=== PATIENT | female | born 1990 | race Caucasian/White ===

== ENCOUNTER → 2018-01-18 12:12 | Outpatient (CLI) | payer OTHER, SELFPAY ==
[2018-01-20 07:51] LABS: Thyroglobulin Antibody < 1.0 IU/mL (0.0-0.9)
== END ==
PROVIDERS: Referring Provider Family Medicine; Visit Provider Family Medicine
DX: E01.0 Iodine-deficiency related diffuse (endemic) goiter (principal); R10.9 Unspecified abdominal pain; E28.2 Polycystic ovarian syndrome
CPT/HCPCS: 86800

== ENCOUNTER → 2018-02-02 14:34 | Outpatient (CLI) | payer OTHER, SELFPAY ==
--- NOTE | 2018-02-02 14:37 | US_ITS ---
STUDY: THYROID ULTRASOUND REASON FOR EXAM: Female, 27 years old. Thyromegaly. TECHNIQUE: Ultrasound evaluation of the thyroid was performed with real-time and static stewart-scale imaging. COMPARISON: None. FINDINGS: RIGHT LOBE: The right lobe of the thyroid gland measures 5.4 x 2.2 x 1.4 cm. There is a homogeneous echotexture. There is a well-circumscribed hypoechoic 3.8 x 1.9 x 3.0 mm nodule within the right lobe of the gland. LEFT LOBE: The left lobe of the thyroid gland measures 5.3 x 2.0 x 1.4 cm. There is a homogeneous echotexture. There is a solid 26 x 16 x 9.0 mm hypervascular nodule within the left lobe. ISTHMUS: The isthmus measures 3 mm. The regional lymph nodes are normal. US/Thyroid IMPRESSION: Enlarged thyroid gland. Bilateral thyroid nodules, the largest measuring up to 26 x 16 x 9.0 mm within the left lobe of the gland. Electronically Signed: Alethea Green MD at 16:47 EDT Tel , Service support ,
== END ==
PROVIDERS: Family Provider Family Medicine; PCP Family Medicine; Referring Provider Family Medicine; Visit Provider Family Medicine
DX: E01.0 Iodine-deficiency related diffuse (endemic) goiter (principal)
CPT/HCPCS: 76536

== ENCOUNTER → 2018-03-05 13:10 | Outpatient (CLI) | payer OTHER, SELFPAY ==
--- NOTE | 2018-03-05 13:10 | ASPS_PTH ---
PATIENT: BINTA MCCRARY LOC: [facility] U#:[id number] AGE/SX: 34/F ROOM: RE03/05/[address]: Dr. Brian Ramirez MD : 1990 BED: DIS: SPEC #: [id number] RECD: 03/06/18 07:12 STATUS: VIKKI CAROL #: [id number] NELLA: 03/05/18 13:[address]: Brian Ramirez DEPT: CYTOLOGY RECD BY: Rohan Ghotra ENTERED: 03/07/18 07:53 SP TYPE: ASPIRATION OTHR DR: Dr. Kenneth Escalona MD Tissues: Thyroid gland, NOS Procedures: Pap Stain (control) Special Stain Group II Cytology Other HEADER OPERATION: Left thyroid, FNA PRE-OP DIAGNOSIS: Left thyroid nodule TISSUE SUBMITTED: Left thyroid, slides DIAGNOSIS CYTOLOGY Left thyroid nodule, FNA (smear): Consistent with benign follicular nodule. Adequate for evaluation. SJ:sp 03/07/18 COMMENT Immediate cytologic evaluation to determine adequacy is not applicable. Correlation with clinical, radiologic findings and appropriate follow up are necessary. CYTOLOGY STUDY Slides are reviewed. CYTOLOGY GROSS Received are 6 smears labeled with the patient's name and designated per the requisition as left thyroid. Submitted for staining. /Wendy 03/06/18 TC: 5 [facility]: [id number]
== END ==
PROVIDERS: Family Provider Family Medicine; PCP Family Medicine; Referring Provider Surgery; Visit Provider Surgery
DX: E04.1 Nontoxic single thyroid nodule (principal)
CPT/HCPCS: 88161; 88313

== ENCOUNTER → 2019-05-23 14:37 | Outpatient (CLI) | payer OTHER, SELFPAY ==
[2019-05-16 09:20] VITALS: BMI 46.7
--- NOTE | 2019-05-23 14:38 | CT_ITS ---
STUDY: CT ABDOMEN AND PELVIS WITHOUT CONTRAST REASON FOR EXAM: Female, 28 years old. RT SIDED PAIN X 2 YRS, N/V/D, SX WORSENING, PREV BERENICE RADIATION DOSAGE (If Supplied By Facility): CTDIvol = ( 24.18 ) mGy, DLP = ( 1292.7 ) mGycm TECHNIQUE: Transaxial images were obtained from the dome of the diaphragm to the symphysis pubis without oral contrast, and without intravenous contrast. Sagittal and coronal images were reconstructed. Individualized dose optimization techniques were used for this CT. COMPARISON: None. FINDINGS: The visualized lung bases are unremarkable. The visualized portions of the heart are within normal limits. There is decreased attenuation of the liver consistent with steatosis. There are surgical clips in the gallbladder fossa consistent with a prior cholecystectomy. Normal spleen. Normal pancreas. Normal bilateral adrenal glands. Normal right kidney. Normal left kidney. Normal visualized stomach. Normal small intestine. Intimal stranding around the cecum with several prominent lymph nodes. There is non-visualization of the appendix. Normal abdominal aorta. Normal inferior vena cava. Normal retroperitoneum. Normal urinary bladder. Normal visualized uterus. Normal abdominal wall. Normal osseous structures. CT/Abdomen/Pelvis without Cont IMPRESSION: Mild stranding around the cecum may represent an acute infectious or inflammatory process as clinically indicated. Appendix not visualized. Cholecystectomy. Diffuse hepatic steatosis. Electronically Signed: Seun Parra, at 15:38 EST Tel , Service support ,
== END ==
PROVIDERS: PCP Internal Medicine; Referring Provider Internal Medicine; Visit Provider Internal Medicine
DX: R10.9 Unspecified abdominal pain (principal); G89.29 Other chronic pain
CPT/HCPCS: 74176

== ENCOUNTER 2019-07-01 07:34 | Day surgery (SDC) | payer OTHER, SELFPAY ==
--- NOTE | 2019-06-06 03:01 | HP_ITS ---
Intake Vital Signs 06/06/19 BMI 46.7 06/06/19 Height 5 ft 4 in 06/06/19 Weight: 289 lb 06/06/19 BMI 49.6 06/06/19 BP 114/61 06/06/19 Blood Pressure Location Rt brachial 06/06/19 Position Sitting 06/06/19 Respiration 18 06/06/19 Pulse 66 06/06/19 Pulse Source Monitor 06/06/19 Temp 98.1 F 06/06/19 Temp Source Oral 06/06/19 Pulse Oximetry (%) 97 06/06/19 Oxygen Delivery Method room air Intake Visit Reasons: ABDOMINAL PAIN/CHOLECYSTECTOMY Chief Complaint: abdominal pain [employer] Required: No Is patient in pain?: No Allergies No Known Allergies Allergy (Verified 06/06/19 14:42) Medications multivitamin,jj-[id number] 1 tab PO DAILY 04/11/18 [History Confirmed 06/06/19] omeprazole 20 mg capsule,delayed release 20 mg PO DAILY 04/11/18 [History Confirmed 06/06/19] escitalopram oxalate 5 mg tablet 5 mg PO DAILY #60 tab 05/15/19 [Rx Confirmed 06/06/19] norethindrone (contraceptive) 0.35 mg tablet 0.35 mg PO QDAY #84 tab 05/16/19 [Rx Confirmed 06/06/19] lactobacillus combination no.8 3 billion cell capsule 3,000 mmu cells PO DAILY 06/06/19 [History Confirmed 06/06/19] [facility] Medical History Acid reflux (Chronic) PCOS (polycystic ovarian syndrome) (Chronic) Multiple thyroid nodules (Acute) Anxiety (Chronic) Diarrhea (Acute) Nausea (Acute) Abdominal pain (Acute) High triglycerides (Acute) Chronic headaches (Chronic) Surgical History History of laparoscopic cholecystectomy (Resolved) History of thyroid surgery (Resolved) history wisdom teeth removed (Resolved) Family History Grandmother Arthritis Breast cancer Skin cancer Diabetes Thyroid disorder High cholesterol Hypertension Grandfather Skin cancer Hypertension High cholesterol Mother Depression High cholesterol Thyroid disorder Father High cholesterol Severe allergy Social History (Updated 06/06/19 @ 15:02 by Addi Wagner MD) Smoking Status: Never smoker alcohol intake: current alcohol intake frequency: a few times a month substance use type: does not use caffeine: Yes what type of physical activity do you participate in: walking frequency: 3-4 times per week seatbelt use: always do you feel safe at home: Yes additional social history: Single-Works at [employer] HPI HPI HPI: BINTA LUEVANO, is a 28 F who presents to the office today for HPI HPI Surgical H&P: Yes HPI: BINTA LUEVANO, is a 28 F who presents to the office today for Evaluation for abdominal pain. Patient states that she has had right sided abdominal pain over the last several years. Originally back in 2017 she presented with symptoms similar to this gallbladder ultrasound was obtained that showed cholelithiasis and she subsequently underwent a laparoscopic cholecystectomy and [facility] Since that time she has noticed an increase in her diarrhea which she is always had but worse when she is having thick syrupy or spicy meals. In addition her GERD has gotten significantly worse. She complains of reflux going up into her esophagus. A CAT scan of her abdomen and pelvis was obtained which showed intimal stranding around the cecum with several prominent lymph nodes. There was nonvisualization of her appendix. There were also surgical clips in the gallbladder fossa consistent with a prior cholecystectomy. ROS General General: No weight change, appetite, fatigue, colon cancer, breast cancer or weakness HEENT HEENT: No difficulty swallowing, eye injury, eye surgery, swollen glands or hoarseness Endo Endocrine: No thyroid disease, diabetes mellitus, thyroid cancer, Hair loss, heat intolerance or cold intolerance Skin Skin: No rash or changing moles Breast Breast: No left breast lump, right breast lump, nipple discharge, breast pain, abnormal mammogram, abnormal US or breast enlargement Musc Musculoskeletal: No back problems, arthritis, rheumatoid arthritis, gout or joint pain Cardio Cardiovascular: No murmur, pacemaker, heart disease, atrial fibrillation, high blood pressure, heart attack, heart stent, palpitations, shortness of breat with exertion or chest pain Psych Psychiatric: Yes anxiety; no depression or hearing voices Resp Respiratory: No shortness of breath, No sleep apnea, No cough, No COPD, No asthma, No emphysema, No wheezing Gastro Gastrointestinal: Yes abdominal pain, Yes nausea or vomiting, Yes diarrhea, No constipation, No blood in stool, Yes acid reflux, No hemorrhoids, No ulcers, Yes gallbladder problem, No black,tarry stools Edgardo Hematologic: No blood thinners, No blood disorders, No bleeding, No anemia, No blood clots Neuro Neurologic: No system reviewed and no additional complaints, except as docu, No as per HPI, No abnormal walking, No abnormal hearing, No abnormal movements, No abnormal speech, No behavioral changes, No burning sensations, No confusion, No seizure-like activity, No unsteadiness, No dizziness, No localized weakness, No frequent falls, No headache(s), No lack of coordination, No loss of vision, No memory loss, No numbness, No other visual disturbances, No radiating pain, No restless legs, No sensory deficit, No fainting, No tingling, No tremor(s), No weakness, No other Exam Const General: no acute distress, well developed, well hydrated Orientation: oriented to person, oriented to place, oriented to time [facility] Head: normocephalic, atraumatic Ears: external ears normal Mouth: moist mucous membranes Eyes Sclera: sclerae normal Pupils: normal by confrontation Neck Neck: no lymphadenopathy noted Neck mass: No Thyroid: thyroid normal, symmetrical Chest Chest palpation & inspection: normal inspection of the chest Breast Palpation: No nipple discharge Resp Effort & Inspection: normal respiratory effort Auscultation: clear to auscultation bilaterally Percussion: percussion normal Cardio Rate: regular rate Rhythm: regular rhythm Heart Sounds: no murmurs GI Inspection: obesity Palpation: soft, no hepatosplenomegaly, no masses, nontender Rectal Exam: other Other: Rectal exam deferred. I spent a lot of time palpating around her previous cholecystectomy scars as well as a subcutaneous tissue. She has no signs of any hernias she has no signs of any subcutaneous lesions which could be causing this discomfort. Extrem General: normal to inspection, no clubbing, cyanosis or edema Assessment & Plan Problems 1. Gastroesophageal reflux disease, esophagitis presence not specified K21.9 2. Right sided abdominal pain R10.[address] scan R93.5 4. Diarrhea, unspecified type R19.7 Plan I have discussed the above with the patient. I have offered the patient colonoscopy As well as an EGD for evaluation. I have explained the risks/benefits of the procedure and described the procedure. I have discussed the risks with the patient, including but not limited to: infection, bleeding, perforation of the GI tract requiring emergency surgery, inability to complete the procedure, injury to any internal organs, complications of anesthesia, etc. - the patient understands and agrees to proceed. I have answered all the patient's questions to the patient's satisfaction and the patient has no further questions. The patient has been given instructions for the colon cleansing preparation. We will be doing random colon biopsies. Coding Level of Care Code Off vis,new,level 3 Diagnoses Gastroesophageal reflux disease, esophagitis presence not specified K21.9 ??Esophagitis presence: esophagitis presence not specified Right sided abdominal pain R10.[address] scan R93.5 Diarrhea, unspecified type R19.7 ??Diarrhea type: unspecified type 06/06/19 1502 <Electronically signed by Addi yusuf MD> Date _ Addi Wagner MD I have re-examined the patient. There are no clinical changes since date of exam.
[2019-06-06 14:43] VITALS: BMI 46.7
[2019-06-14 11:14] VITALS: BMI 46.7
[2019-07-01 08:01] VITALS: BP 152/96; PULSE 93; RESP 18; TEMP 37.1; O2SAT 95; BMI 49.6
[2019-07-01 08:12] LABS: Internal QC Validated? YES +Cl - CLEAR BKGD; Pregnancy, Urine Negative Negative
[2019-07-01] MEDS: Lactated Ringers 1,000 ML 100 ML IV (08:13)
--- NOTE | 2019-07-01 08:30 | COLBX_PTH ---
PATIENT: BINTA MCCRARY LOC: EN U#:[id number] AGE/SX: 28/F ROOM: RE07/01/[address]: Dr. Addi Wagner MD : 1990 BED: DIS: 07/01/2019 SPEC #: [id number] RECD: 07/01/19 11:57 STATUS: VIKKI ACROL #: [id number] NELLA: 07/01/19 08:[address]: Addi Wagner DEPT: SURGICAL PATHOLOGY RECD BY: Chandu Velasco ENTERED: 07/01/19 13:57 SP TYPE: COLON BX OTHR DR: Dr. Ivania Gray MD Tissues: A - COLON BIOPSY B - Gastric mucous membrane C - Ileum, NOS D - COLON BIOPSY Procedures: Surgery Specimen Level IV HEADER OPERATION: Colonoscopy, EGD ([facility] PRE-OP DIAGNOSIS: Abdominal pain, diarrhea TISSUE SUBMITTED: A - Small bowel biopsy, B - Antral biopsy for H. pylori and pathology, C - Terminal ileum biopsy, D - Random colon biopsies MICROSCOPIC DIAGNOSIS A. Small bowel, biopsy: No pathologic change. B. Gastric antrum, biopsy: Mild chronic gastritis. See comment. C. Terminal ileum, biopsy: Minimal nonspecific chronic inflammation. D. Colon, random biopsy: No pathologic change. AM:angelica 07/02/19 COMMENT B. The results of immunohistochemistry for Helicobacter pylori will be reported separately ([id number]). MICROSCOPIC DESCRIPTION Slides are reviewed. GROSS DESCRIPTION A - Received in fixative is one container labeled with the patient's name and designated small bowel biopsy. The specimen consists of two irregular fragments of light garcia soft tissue that in aggregate measure 0.6 x 0.3 x 0.1 cm. The specimen is totally submitted in one cassette. B - Received in fixative is one container labeled with the patient's name and designated antral biopsy. The specimen consists of one irregular fragment of light garcia soft tissue that measures 0.7 x 0.2 x 0.1 cm. The specimen is totally submitted in one cassette. C - Received in fixative is one container labeled with the patient's name and designated terminal ileum. The specimen consists of one irregular fragment of light garcia soft tissue that measures 0.8 x 0.2 x 0.1 cm. The specimen is totally submitted in one cassette. D - Received in fixative is one container labeled with the patient's name and designated random colon biopsy. The specimen consists of multiple irregular fragments of light garcia soft tissue that in aggregate measure 2 x 1 x 0.1 cm. The specimen is totally submitted in one cassette. / AM:angelica 07/01/19 TC:3 CPT: 43455 x4
--- NOTE | 2019-07-01 08:30 | IMM_PTH ---
PATIENT: BINTA MCCRARY LOC: EN U#:[id number] AGE/SX: 28/F ROOM: RE07/01/[address]: Dr. Addi Wagner MD : 1990 BED: DIS: 07/01/2019 SPEC #: [id number] RECD: 07/01/19 15:06 STATUS: VIKKI REDwain #: [id number] NELLA: 07/01/19 08:[address]: Addi Wagner DEPT: IMMUNOHISTOCHEMISTRY RECD BY: Yazmin Jeong ENTERED: 07/01/19 15:06 SP TYPE: IMMUNO OTHR DR: Dr. Ivania Gray MD Tissues: B - Stomach, NOS Procedures: H Pylori (initial) PHYSICIAN & INSTITUTION [place] [id number] SPECIMEN INFORMATION: Tissue Source: B - Antral biopsy Clinical Info: Abdominal pain, diarrhea Specimen Number: [id number] CPT code: 76313 METHODOLOGY: Deparaffinized sections of prefer/formalin-fixed tissue or PAP/DQ stained slides are incubated with monoclonal/polyclonal antibodies/oligonucleotide probes. Localization is made via biotin free immunoperoxidase method. Appropriate controls are performed and reacted as expected. Results on target cell population are indicated in the following table: RESULTS: ANTIBODY / CLONE RESULT Block B H Pylori (polyclonal) negative These tests were developed and their performance characteristics determined by [facility]. They may not have been cleared or approved by the U.S. Food and Drug Administration. The FDA has determined that such clearance or approval is not necessary. The above immunohistochemical/dualISH markers are ordered and reviewed by the Pathologist. INTERPRETATION: B. Antral biopsy: Negative for Helicobacter pylori organisms. AM:angelica 07/02/19
[2019-07-01 09:00] VITALS: BP 124/66; BP 152/96; PULSE 80; RESP 18; TEMP 36.3; O2SAT 94
--- NOTE | 2019-07-01 09:01 | OP.CCLET_ITS ---
07/01/2019 Ivania Gray MD [address] [place] [address] [place] [address] Re : Upper GI endoscopy procedure for Lori Hammer Dear Dr. Gray This procedure was performed on Monday, July 01, 2019. My impressions and recommendations are as follows: Impressions : - Normal esophagus. - Erythematous mucosa in the antrum. Biopsied. - Normal examined duodenum. Biopsied. Recommendations : - Await pathology results. - Repeat upper endoscopy (date not yet determined) for surveillance. - Return to my office in 1 week. - Continue present medications. My findings are described in the full procedure note, which is enclosed. If I can be of further assistance, please feel free to contact me at Doctor phone number(s): , Fax: [phone], Work: . Sincerely, MD Addi Keane MD 07/01/2019 9:00:47 AM This report has been signed electronically.
--- NOTE | 2019-07-01 09:01 | OP.EGD_ITS ---
Patient Name: Lori Hammer Procedure Date: 07/01/2019 8:34 AM Date of : 1990 Age: 28 Procedure: Upper GI endoscopy Indications: Abdominal pain in the right upper quadrant, Gastro-esophageal reflux disease, Diarrhea Providers: Addi Wagner MD Referring MD: Ivania Gray MD Medicines: See the Anesthesia note for documentation of the administered medications Patient Profile: This is a 28 year old female. Refer to note in patient chart for documentation of history and physical. Complications: No immediate complications. Procedure: Pre-Anesthesia Assessment: - Prior to the procedure, a History and Physical was performed, and patient medications and allergies were reviewed. The patient's tolerance of previous anesthesia was also reviewed. The risks and benefits of the procedure and the sedation options and risks were discussed with the patient. All questions were answered, and informed consent was obtained. Prior Anticoagulants: The patient has taken no previous anticoagulant or antiplatelet agents. ASA Grade Assessment: III - A patient with severe systemic disease. After reviewing the risks and benefits, the patient was deemed in satisfactory condition to undergo the procedure. After obtaining informed consent, the endoscope was passed under direct vision. Throughout the procedure, the patient's blood pressure, pulse, and oxygen saturations were monitored continuously. The gastroscope was introduced through the mouth, and advanced to the third part of duodenum. The upper GI endoscopy was accomplished without difficulty. The patient tolerated the procedure well. Scope In: 8:40:40 AM Scope Out: 8:43:44 AM Total Procedure Duration Time 0 hours 3 minutes 4 seconds Findings: The examined esophagus was normal. Localized mildly erythematous mucosa without bleeding was found in the gastric antrum. Biopsies were taken with a cold forceps for Helicobacter pylori testing. The examined duodenum was normal. Biopsies for histology were taken with a cold forceps for evaluation of celiac disease. Impression: - Normal esophagus. - Erythematous mucosa in the antrum. Biopsied. - Normal examined duodenum. Biopsied. Recommendation: - Await pathology results. - Repeat upper endoscopy (date not yet determined) for surveillance. - Return to my office in 1 week. - Continue present medications. Procedure Code(s): --- Professional --- 64845, Esophagogastroduodenoscopy, flexible, transoral; with biopsy, single or multiple Diagnosis Code(s): --- Professional --- K31.89, Other diseases of stomach and duodenum R10.11, Right upper quadrant pain K21.9, Gastro-esophageal reflux disease without esophagitis R19.7, Diarrhea, unspecified CPT copyright 2017 [employer]. All rights reserved. The codes documented in this report are preliminary and upon admissions evaluator review may be revised to meet current compliance requirements. MD Addi Kaene MD 07/01/2019 9:00:47 AM This report has been signed electronically. Number of Addenda: 0 Note Initiated On: 07/01/2019 8:34 AM
--- NOTE | 2019-07-01 09:04 | OP.COLON_ITS ---
Patient Name: Lori Hammer Procedure Date: 07/01/2019 8:44 AM Date of : 1990 Age: 28 Procedure: Colonoscopy Indications: Abdominal pain in the right upper quadrant, Clinically significant diarrhea of unexplained origin, Abnormal CT of the GI tract Providers: Addi Wagner MD Referring MD: Ivania Gray MD Medicines: See the Anesthesia note for documentation of the administered medications Patient Profile: This is a 28 year old female. Refer to note in patient chart for documentation of history and physical. Last Colonoscopy: none. The patient's first colonoscopy is today. Complications: No immediate complications. Procedure: Pre-Anesthesia Assessment: - Prior to the procedure, a History and Physical was performed, and patient medications and allergies were reviewed. The patient's tolerance of previous anesthesia was also reviewed. The risks and benefits of the procedure and the sedation options and risks were discussed with the patient. All questions were answered, and informed consent was obtained. Prior Anticoagulants: The patient has taken no previous anticoagulant or antiplatelet agents. ASA Grade Assessment: III - A patient with severe systemic disease. After reviewing the risks and benefits, the patient was deemed in satisfactory condition to undergo the procedure. - Prior to the procedure, a History and Physical was performed, and patient medications and allergies were reviewed. The patient's tolerance of previous anesthesia was also reviewed. The risks and benefits of the procedure and the sedation options and risks were discussed with the patient. All questions were answered, and informed consent was obtained. Prior Anticoagulants: The patient has taken no previous anticoagulant or antiplatelet agents. ASA Grade Assessment: III - A patient with severe systemic disease. After reviewing the risks and benefits, the patient was deemed in satisfactory condition to undergo the procedure. After I obtained informed consent, the scope was passed under direct vision. Throughout the procedure, the patient's blood pressure, pulse, and oxygen saturations were monitored continuously. The Colonoscope was introduced through the anus and advanced to 5 cm into the ileum. The colonoscopy was performed without difficulty. The patient tolerated the procedure well. The quality of the bowel preparation was good. Scope In: 8:45:49 AM Scope Withdrawal Time 0 hours 7 minutes 32 seconds Scope Out: 8:57:10 AM Total Procedure Duration Time 0 hours 11 minutes 21 seconds Findings: The terminal ileum appeared normal. Biopsies for histology were taken with a cold forceps from the terminal ileum for evaluation of microscopic colitis. The colon (entire examined portion) appeared normal. Biopsies for histology were taken with a cold forceps from the entire colon for evaluation of microscopic colitis. Non-bleeding internal hemorrhoids were found during retroflexion. The hemorrhoids were mild and small. The exam was otherwise without abnormality. Impression: - The examined portion of the ileum was normal. Biopsied. - The entire examined colon is normal. Biopsied. - Non-bleeding internal hemorrhoids. - The examination was otherwise normal. Recommendation: - Discharge patient to home. - Resume previous diet. - Continue present medications. - Await pathology results. - Repeat colonoscopy (date not yet determined) for surveillance. - Return to my office in 1 week. Procedure Code(s): --- Professional --- 16133, Colonoscopy, flexible; with biopsy, single or multiple Diagnosis Code(s): --- Professional --- K64.8, Other hemorrhoids R10.11, Right upper quadrant pain R19.7, Diarrhea, unspecified R93.3, Abnormal findings on diagnostic imaging of other parts of digestive tract CPT copyright 2017 [employer]. All rights reserved. The codes documented in this report are preliminary and upon manager credit collections review may be revised to meet current compliance requirements. MD Addi Keane MD 07/01/2019 9:03:45 AM This report has been signed electronically. Number of Addenda: 0 Note Initiated On: 07/01/2019 8:44 AM
--- NOTE | 2019-07-01 09:04 | OP.CCLET_ITS ---
07/01/2019 Ivania Gray MD [address] [place] [address] [place] [address] Re : Colonoscopy procedure for Lori Hammer Dear Dr. Gray This procedure was performed on Monday, July 01, 2019. My impressions and recommendations are as follows: Impressions : - The examined portion of the ileum was normal. Biopsied. - The entire examined colon is normal. Biopsied. - Non-bleeding internal hemorrhoids. - The examination was otherwise normal. Recommendations : - Discharge patient to home. - Resume previous diet. - Continue present medications. - Await pathology results. - Repeat colonoscopy (date not yet determined) for surveillance. - Return to my office in 1 week. My findings are described in the full procedure note, which is enclosed. If I can be of further assistance, please feel free to contact me at Doctor phone number(s): , Fax: [phone], Work: . Sincerely, MD Addi Keane MD 07/01/2019 9:03:45 AM This report has been signed electronically.
[2019-07-01 09:05] VITALS: BP 134/72; BP 152/96; PULSE 68; RESP 16; O2SAT 95
[2019-07-01 09:10] VITALS: BP 132/73; BP 152/96; PULSE 71; RESP 16; O2SAT 94
[2019-07-01 09:15] VITALS: BP 135/78; BP 152/96; PULSE 79; RESP 16; TEMP 36.3; O2SAT 95
[2019-07-01 09:33] VITALS: BP 152/96
== END 2019-07-01 10:08 | disposition home or self-care (01) ==
LOC: EN 07:35 → AC 07:35
PROVIDERS: Anesthesiology; PCP Internal Medicine; Referring Provider Internal Medicine; Visit Provider Surgery
PROC: 0DJD8ZZ Inspection of Lower Intestinal Tract, Via Natural or Artificial Opening Endoscopic (ICD-10-PCS; CPT 45378; principal; 2019-07-01 08:25)
DX: R10.11 Right upper quadrant pain (principal); R19.7 Diarrhea, unspecified; K21.9 Gastro-esophageal reflux disease without esophagitis; R93.5 Abnormal findings on diagnostic imaging of other abdominal regions, including retroperitoneum; Z79.899 Other long term (current) drug therapy; K64.8 Other hemorrhoids; K29.50 Unspecified chronic gastritis without bleeding
CPT/HCPCS: 43239; 45380; 81025; 88305; 88342; J7120; J1610; J2405

== ENCOUNTER → 2019-09-20 14:58 | Outpatient (CLI) | payer OTHER, SELFPAY ==
[2019-09-20 13:16] VITALS: BMI 49.6
[2019-09-20 17:11] LABS: Chlamydia Trachomatis by PCR Negative (Negative); Neisserai gonorrhoeae by PCR Negative (Negative); Probe Check PASS; Specimen Processing Control PASS
[2019-09-20 17:12] LABS: Sample Adequacy Control PASS
== END ==
LOC: LABSPEC 15:00
PROVIDERS: PCP Internal Medicine; Referring Provider Nurse Practitioner Women's Health; Visit Provider Nurse Practitioner Women's Health
DX: R30.0 Dysuria (principal); Z11.3 Encounter for screening for infections with a predominantly sexual mode of transmission; N76.0 Acute vaginitis
CPT/HCPCS: 87070; 87077; 87086; 87088; 87186; 87205; 87491; 87591

== ENCOUNTER → 2020-05-19 10:00 | Outpatient (CLI) | payer OTHER, SELFPAY ==
[2020-05-19 09:51] VITALS: BMI 49.3
[2020-05-22 20:36] LABS: HPV Reflexed? NOT INDICATED
== END ==
PROVIDERS: PCP Internal Medicine; Referring Provider Nurse Practitioner Women's Health; Visit Provider Nurse Practitioner Women's Health
DX: Z12.4 Encounter for screening for malignant neoplasm of cervix (principal)
CPT/HCPCS: 88175; G0145

== ENCOUNTER → 2023-01-11 | Outpatient (CLI) | payer OTHER, SELFPAY ==
[2023-01-11 12:20] LABS: Absolute Lymphocyte Count 3.33 X10^3/uL (0.83-4.51); Absolute Neutrophil Count 7.1 X10^3/uL (2.0-7.7); Basophil# 0.09 X10^3/uL; Basophil% 0.8 % (0-1); Eosinophil# 0.32 X10^3/uL; Eosinophils% 2.7 % (0-5); Hematocrit 42.2 % (37-47); Hemoglobin 13.7 g/dL (12.0-15.0); Lymphocyte # 3.33 X10^3/ul (0.83-4.51); Lymphocyte % 28.4 % (19-41); Mean Corp Hgb Conc 32.5 g/dL (32-36); Mean Corpuscular Hgb 27.1 pg (27.0-32.0); Mean Corpuscular Volume 83.6 fL (81-99); Mean Platelet Vol. 9.8 fl (6.2-12.0); Monocyte# 0.87 X10^3/uL; Monocyte% 7.4 % (0-10); NRBC Flagged by Analyzer 0 % (0-5); Neutrophil # 7.07 X10^3/uL (2.7-7.7); Neutrophil % 60.3 % (47-70); Platelet Count 360 K/mm3 (150-450); RBC Distribution Width CV 13.2 % (11.6-14.6); Red Blood Count 5.05 M/mm3 (4.2-5.4); White Blood Count 11.7 K/mm3 (4.4-11.0)
[2023-01-11 12:56] LABS: AST(SGOT) 13 U/L (15-37); Alanine Aminotransfer ALT/SGPT 28 U/L (13-56); Albumin, Serum 3.6 g/dL (3.2-5.0); Alkaline Phosphatase 53 U/L (45-117); Anion Gap 6 (5-15); BUN 9 mg/dL (7-18); BUN/Creat Ratio 12.4 RATIO (10-20); Calcium,Total 9.2 mg/dL (8.5-10.1); Chloride 109 mmol/L (98-107); Cholesterol 168 mg/dL (200); Creatinine, Serum 0.72 mg/dL (0.55-1.02); EST Glomerular Filtration Rate 99 mL/min (>60); Est Glom Filt Rate - Afr Amer 120 mL/min (>60); Globulin 3.7 g/dL (2.2-4.2); Glucose 95 mg/dL (74-106); High Density Lipoprotein 47 mg/dL; Protein, Total 7.3 g/dL (6.4-8.2); Sodium Level 140 mmol/L (136-145); Triglycerides 208 mg/dL; Very Low Density Lipoprotein 42 mg/dL (5-40)
== END | disposition home or self-care (01) ==
LOC: BIMLAB 09:32
PROVIDERS: PCP Internal Medicine; Referring Provider Internal Medicine; Visit Provider Internal Medicine
DX: Z00.00 Encounter for general adult medical examination without abnormal findings (principal)
CPT/HCPCS: 36415; 80053; 80061; 85025

== ENCOUNTER → 2023-08-18 | Outpatient (CLI) | payer OTHER, SELFPAY ==
[2023-08-18 11:07] LABS: Mucous, Urine 0 SEEN /hpf (<or=2+)
[2023-08-18 12:35] LABS: Color, Urine Yellow (Yellow); Glucose, Dipstick Normal (Normal); Ketone-Dipstick Negative (Negative); Leukocyte Esterase-Dipstick 500 /ul (Negative); Nitrite-Dipstick Positive (Negative); Occult Blood-Urine 10 /ul (Negative); Protein-Dipstick 30 mg/dl (Negative); Specific Gravity, Urine 1.025 (1.002-1.030); Urine Clarity Sl. Cloudy (Clear); Urine Urobilinogen 8 mg/dl (Normal)
[2023-08-18 12:38] LABS: Urine Bilirubin Dipstick 6 mg/dL (Negative)
[2023-08-18 12:47] LABS: Bacteria 2+ /hpf (None Seen); Red Blood Cells-Urine 0-5 SEEN /hpf (0-5); Squamous Epithelial Cells - UA 0-5 SEEN /hpf (5-10); White Blood Cells 25-50 SEEN /hpf (0-5)
== END | disposition home or self-care (01) ==
LOC: LABSPEC 11:06
PROVIDERS: PCP Internal Medicine; Visit Provider Internal Medicine
DX: N39.0 Urinary tract infection, site not specified (principal)
CPT/HCPCS: 81001; 87077; 87086; 87088; 87186

== ENCOUNTER → 2024-10-15 | Outpatient (CLI) | payer OTHER, SELFPAY ==
--- OUTSIDE RECORDS SUMMARY | 2024-10-15 08:46 | XMS RPT_ITS | CCD ---
Author Organization [facility] Care Team Providers Care Instrument/Control Technician Name Role Phone Sophie Rosales Unavailable Unavailable PROVIDER, UNKNOWN Unavailable Unavailable Sophie Rosales Unavailable Unavailable Manuel Iqbal Unavailable Unavailable PROVIDER, UNKNOWN Unavailable Unavailable Sophie Rosales Unavailable Unavailable Dr. Ivania Gray Primary Care Provider [phone]) Dr. Ivania Gray Attending Provider [phone] Dr. Ivania Gray Referring Provider [phone] Ivania Gray Primary Care Provider Dr. Ivania Gray Primary Care Provider 1([phone]) Dr. Ivania Gray Attending Provider [phone] Dr. Ivania Gray Referring Provider [phone] Dr. Ivania Gray MD Primary Care Provider Dr. Ivania Gray MD Attending Provider 1([phone]) Dr. Ivania Gray MD Referring Provider [phone] Gunnar Viera Attending Unavailable Ivania Gray Referring Unavailable Ivania Gray Primary Care Unavailable Ivania Gray Referring Unavailable Ivania Gray Attending Unavailable Ivania Gray Primary Care Unavailable Medications Current Medications Medication Drug Class(es) Dates Sig (Normalized) Sig (Original) biotin 2.5 mg oral capsule (1 source) Start: 10-10-2024 take 1 capsule by mouth once daily Biotin 2,500 mcg capsule Active 2500 ug PO daily October 10, 2024 12:00am ciprofloxacin 250 mg oral tablet (1 source) Quinolone Antimicrobial Start: 08-23-2023 End: 08-26-2023 take 1 tablet by mouth twice daily ciprofloxacin (Cipro) 250 MG tablet Indications: UTI symptoms , Screen for STD (sexually transmitted disease) Take 1 tablet (250 mg) by mouth 2 times daily for 3 days. 6 tablet 0 08/23/2023 08/26/2023 Active Agmlbzak-Iwmbxj-Dcc orbic Acid (Collagen 1500 Plus C) 500 mg-800 mcg- 50 mg capsule (1 source) Start: 10-10-2024 take 1 capsule by mouth once daily Uzudxuni-Lzmvvz-Ey corbic Acid (Collagen 1500 Plus C) 500 mg-800 mcg- 50 mg capsule Active NMA PO daily October 10, 2024 12:00am fluconazole 150 mg oral tablet (5 sources) Azole Antifungal Start: 08-23-2023 End: 10-10-2024 fluconazole (Diflucan) 150 MG tablet Indications: Vaginal discharge Take 1 tablet (150 mg) by mouth Every 3 days for 2 doses. Take one 150mg tablet the first day then take the second 150mg tablet 3 days later. 2 tablet 1 08/23/2023 08/27/2023 Active Start: 09-23-2019 End: 12-02-2019 Fluconazole 150 mg tablet Di scontinued 150 mg PO .COMPLEX 2 September 23, 2019 12:00am December 02, 2019 8:55am 150 mg PO take one po now and repeat after completing antibiotic lidocaine 0.05 mg/mg topical ointment (11 sources) Antiarrhythmic, Amide Local Anesthetic Start: 02-06-2023 End: 02-06-2024 lidocaine (Xylocaine) 5 % ointment Apply topically 3 times daily. 30 g 1 02/06/2023 02/06/2024 Active lysine 500 mg oral tablet (1 source) Start: 10-10-2024 take 1 tablet by mouth once daily Lysine (L-Lysine) 500 mg tablet Active 500 mg PO daily October 10, 2024 12:00am Magnesium (1 source) Start: 10-10-2024 take 1 tablet by mouth once daily Magnesium 250 mg tablet Active 250 mg PO daily October 10, 2024 12:00am magnesium citrate (7 sources) Start: 02-21-2023 Magnesium Citr ate 100 MG capsule 02/21/2023 Active Start: 02-21-2023 Magnesium Citr ate 100 MG capsule Multivitamin tablet (2 sources) Start: 10-10-2024 Multivitamin t ablet Active 1 {tbl} PO daily October 10, 2024 12:00am Start: 05-19-2020 End: 01-05-2023 Multivitamin tablet Disconti nued 1 {tbl} PO DAILY May 19, 2020 1:00am January 05, 2023 4:56pm omeprazole 40 mg delayed release oral capsule (20 sources) Proton Pump Inhibitor Start: 01-05-2023 End: 10-10-2024 take 1 capsule by mouth once daily Omeprazole 40 mg capsule,delayed release(DR/EC) Active 40 mg PO DAILY October 10, 2024 5:57pm Start: 12-02-2019 End: 01-05-2023 take 2 capsules by mouth once daily Omeprazole 20 mg capsule,delayed release(DR/EC) Discontinued 40 mg PO DAILY December 02, 2019 8:55am January 05, 2023 5:15pm Start: 12-02-2019 End: 01-05-2023 take 40 mg by mouth once daily Omeprazole Discontinued 40 MG PO DAILY December 02, 2019 8:55am January 05, 2023 5:15pm Start: 04-11-2018 End: 12-02-2019 take 1 capsule by mouth once daily Omeprazole 20 mg capsule,delayed release(DR/EC) Discontinued 20 mg PO DAILY April 11, 2018 1:00am December 02, 2019 8:55am saccharomyces boulardii 250 mg oral capsule (1 source) Start: 10-10-2024 take 1 capsule by mouth twice daily Saccharomyces Boulardii (Digest Probiotic (S.Boulardii)) 250 mg capsule Active 250 mg PO TWICE A DAY October 10, 2024 12:00am Completed/Discontinued Medications Medication Drug Class(es) Dates Sig (Normalized) Sig (Original) amLODIPine 5 mg oral tablet (9 sources) Dihydropyridine Calcium Channel Donya Start: 04-06-2020 End: 04-06-2020 take 2.5 mg by mouth once daily Amlodipine 5 mg tablet Discontinued 2.5 mg PO DAILY April 06, 2020 10:04am April 06, 2020 10:35am Start: 04-06-2020 End: 04-06-2020 take 2.5 mg by mouth once daily Amlodipine Discontinue d 2.5 MG PO DAILY April 06, 2020 10:04am April 06, 2020 10:35am Start: 03-02-2020 End: 04-06-2020 take 1 tablet by mouth once daily Amlodipine 5 mg tablet Discontinued 5 mg PO DAILY April 03, 2020 2:41pm April 06, 2020 10:04am amoxicillin 875 mg / clavulanate 125 mg oral tablet (3 sources) Penicillin-class Antibacterial Start: 02-18-2020 End: 03-02-2020 Amoxicillin-Pot Clavulanate (Augmentin) 875-125 mg tablet Discontinued 1 {tbl} PO TWICE A DAY February 18, 2020 12:00am March 02, 2020 10:36am cephalexin 500 mg oral tablet (2 sources) Cephalosporin Antibacterial Start: 08-18-2023 End: 10-10-2024 take 1 tablet by mouth three times daily Cephalexin 500 mg tablet Discontinued 500 mg PO THREE TIMES A DAY August 18, 2023 12:00am October 10, 2024 5:23pm escitalopram 10 mg oral tablet (20 sources) Serotonin Reuptake Inhibitor Start: 12-02-2019 End: 08-18-2023 take 1 tablet by mouth once daily Escitalopram Oxalate (Lexapro) 10 mg tablet Discontinued 10 mg PO DAILY January 05, 2023 5:14pm August 18, 2023 8:57am Start: 05-15-2019 End: 12-02-2019 take 1 tablet by mouth once daily Escitalopram Oxalate 5 mg tablet Discontinued 0 .ROUTE .COMPLEX September 18, 2019 11:43am December 02, 2019 8:55am TAKE 1 TABLET BY MOUTH EVERY DAY hydroCHLOROthiazide 12.5 mg oral tablet (6 sources) Thiazide Diuretic Start: 04-06-2020 End: 01-05-2023 take 1 tablet by mouth once daily in the morning Hydrochlorothiazide 12.5 mg tablet Discontinued 12.5 mg PO EVERY MORNING 60 August 06, 2020 8:20am January 05, 2023 4:56pm Lactobacillus Combination No.8 (Adult Probiotic) 3 billion cell capsule (3 sources) Start: 06-06-2019 End: 09-20-2019 Lactobacillus Combination No.8 (Adult Probiotic) 3 billion cell capsule Discontinued 3000 NMA PO NEEDED as needed for NEEDED June 06, 2019 1:00am September 20, 2019 1:16pm administer with a meal Start: 06-06-2019 End: 09-20-2019 Lactobacillus Combination No .8 (Adult Probiotic) 3 billion cell capsule Discontinued 3000 MMU CELLS PO NEEDED June 06, 2019 1:00am September 20, 2019 1:16pm administer with a meal medroxyPROGESTERone acetate 10 mg oral tablet (6 sources) Progestin Start: 05-15-2018 End: 05-25-2018 take 1 tablet by mouth once daily Medroxyprogesterone 10 mg tablet Discontinued 10 mg PO daily 01 31May 15, 2018 1:00am May 24, 2018 1:00am May 25, 2018 1:09am Start: 02-15-2018 End: 04-11-2018 take 1 tablet by mouth once daily Medroxyprogesterone 10 mg tablet Discontinued 10 mg PO DAILY February 15, 2018 12:00am April 11, 2018 9:57am Multivitamin preparation (2 sources) Start: 05-19-2020 End: 01-05-2023 take 1 tablet by mouth once daily Multivitamin Discontinued 1 TABLET PO DAILY May 19, 2020 1:00am January 05, 2023 4:56pm Multivitamin,Tx-Iron-Min erals (Complete Multivitamin) tablet (3 sources) Start: 04-11-2018 End: 09-20-2019 Multivitamin,Tx-Iron-Mi nerals (Complete Multivitamin) tablet Discontinued 1 {tbl} PO DAILY April 11, 2018 1:00am September 20, 2019 1:16pm Start: 04-11-2018 End: 09-20-2019 take 1 tablet by mouth once daily Multivitamin,Rb-Bqjb-Zxuzyvzs (Complete Multivitamin) tablet Discontinued 1 TABLET PO DAILY April 11, 2018 1:00am September 20, 2019 1:16pm nitrofurantoin, macrocrystals 25 mg / nitrofurantoin, monohydrate 75 mg oral capsule (3 sources) Nitrofuran Antibacterial Start: 09-23-2019 End: 09-30-2019 take 1 capsule by mouth twice daily at mealtime Nitrofurantoin Monohyd/M-Cryst (Macrobid) 100 mg capsule Discontinued 100 mg PO TWICE A DAY 14 7 September 23, 2019 12:00am September 29, 2019 12:00am September 30, 2019 12:02am must administer with a meal/food norethindrone 0.35 mg oral tablet (6 sources) Start: 05-16-2019 End: 01-05-2023 take 1 tablet by mouth once daily Norethindrone (Contraceptive) (Becca) 0.35 mg tablet Discontinued 0.35 mg PO daily May 19, 2020 10:59am January 05, 2023 4:55pm start day 1 of menstrual cycle raNITIdine 150 mg oral tablet (3 sources) Histamine-2 Receptor Antagonist Start: 02-15-2018 End: 04-11-2018 take 1 tablet by mouth once daily Ranitidine Hcl (Acid Debarker Operator (Ranitidine)) 150 mg tablet Discontinued 150 mg PO DAILY February 15, 2018 12:00am April 11, 2018 9:57am sertraline 50 mg oral tablet (3 sources) Serotonin Reuptake Inhibitor Start: 02-15-2018 End: 05-15-2019 take 1 tablet by mouth once daily Sertraline 50 mg tablet Discontinued 50 mg PO DAILY February 15, 2018 12:00am May 15, 2019 2:15pm valACYclovir 1000 mg oral tablet (3 sources) Herpesvirus Nucleoside Analog DNA Polymerase Inhibitor, Herpes Simplex Virus Nucleoside Analog DNA Polymerase Inhibitor, Herpes Zoster Virus Nucleoside Analog DNA Polymerase Inhibitor Start: 08-18-2023 End: 10-10-2024 Valacyclovir (Valtrex) 1 gram tablet Discontinued 1000 mg PO DAILY August 18, 2023 12:00am October 10, 2024 5:23pm Start: 02-09-2023 End: 03-11-2023 take 1 tablet by mouth twice daily valACYclovir (Valtrex) 1 g tablet Take 1 tablet (1,000 mg) by mouth 2 times daily. 20 tablet 2 02/09/2023 03/11/2023 Active Problems Active Problems Problem Classification Problem Date Documented Date Episodic/Chronic Anxiety disorders (5 sources) Anxiety; Translations: [Anxiety disorder, unspecified] 05-15-2018 Chronic Cancer of cervix (3 sources) Low grade squamous intraepithelial lesion on cervical Papanicolaou smear; Translations: [Low grade squamous intraepithelial lesion on cytologic smear of cervix (LGSIL)] 07-25-2023 Episodic Esophageal disorders (4 sources) Gastroesophageal reflux disease; Translations: [Gastro-esophageal reflux disease without esophagitis] 06-06-2019 Chronic Essential hypertension (6 sources) Hypertensive disorder; Translations: [Essential (primary) hypertension] Onset: 10-10-2024 01-05-2023 Chronic Immunizations and screening for infectious disease (5 sources) Exposure to sexually transmissible disorder; Translations: [Contact with and (suspected) exposure to infections with a predominantly sexual mode of transmission] 02-06-2023 Episodic Mood disorders (2 sources) Major depressive disorder, single episode, unspecified; Translations: [Major depressive disorder, single episode, unspecified] Onset: 03-30-2017 Other endocrine disorders (3 sources) Polycystic ovarian syndrome; Translations: [Polycystic ovarian syndrome] Onset: 03-30-2017 Chronic Other endocrine disorders (3 sources) Polycystic ovary; Translations: [Polycystic ovarian syndrome] 05-15-2018 Chronic Other endocrine disorders (13 sources) Polycystic ovary syndrome; Translations: [Polycystic ovarian syndrome] Onset: 03-16-2015 02-04-2022 Chronic Other endocrine disorders (1 source) Polycystic ovaries Chronic Other female genital disorders (3 sources) Lesion of vulva; Translations: [Other specified noninflammatory disorders of vulva and perineum] 02-06-2023 Episodic Other liver diseases (2 sources) Fatty (change of) liver, not elsewhere classified; Translations: [Fatty (change of) liver, not elsewhere classified] Onset: 02-09-2017 Chronic Other nutritional; endocrine; and metabolic disorders (2 sources) Metabolic syndrome; Translations: [Metabolic syndrome] Onset: 03-30-2017 Chronic Other nutritional; endocrine; and metabolic disorders (13 sources) Body mass index 40+ - severely obese; Translations: [Morbid (severe) obesity due to excess calories] Onset: 03-16-2015 02-04-2022 Chronic Other nutritional; endocrine; and metabolic disorders (1 source) Morbid obesity; Translations: [Morbid (severe) obesity due to excess calories] 10-10-2024 Chronic Other nutritional; endocrine; and metabolic disorders (1 source) Morbid (severe) obesity due to excess calories; Translations: [Morbid (severe) obesity due to excess calories] Onset: 10-10-2024 Chronic Other screening for suspected conditions (not mental disorders or infectious disease) (2 sources) Patient encounter status; Translations: [Encounter for screening for other suspected endocrine disorder] Onset: 10-10-2024 10-10-2024 Episodic Residual codes; unclassified (3 sources) Abnormal cytology findings; Translations: [Low grade squamous intraepithelial lesion (LGSIL)] 05-25-2020 Episodic Comment on above: needs repeat 04/2021 . Thyroid disorders (4 sources) Multinodular goiter; Translations: [Nontoxic multinodular goiter] Onset: 10-10-2024 02-15-2018 Chronic Unclassified (1 source) E28.2 - Polycystic ovarian syndrome Urinary tract infections (3 sources) Urinary tract infectious disease; Translations: [Urinary tract infection, site not specified] 08-18-2023 Episodic Viral infection (3 sources) Genital herpes simplex; Translations: [Herpesviral infection of urogenital system, unspecified] 08-18-2023 Chronic Viral infection (3 sources) Anogenital human papillomavirus infection; Translations: [Anogenital (venereal) warts] 07-25-2023 Episodic Past or Other Problems Problem Classification Problem Date Documented Date Episodic/Chronic Biliary tract disease (20 sources) Calculus of gallbladder with chronic cholecystitis without obstruction; Translations: [Calculus of gallbladder without cholecystitis without obstruction] Onset: 02-09-2017 02-04-2022 Episodic Genitourinary symptoms and ill-defined conditions (3 sources) Urinary symptoms ; Translations: [Unspecified symptoms and signs involving the genitourinary system] Onset: 08-23-2023 08-23-2023 Episodic Other female genital disorders (7 sources) Vaginal discharge; Translations: [Other specified noninflammatory disorders of vagina] Onset: 08-23-2023 02-06-2023 Episodic Unclassified (3 sources) migraines with aura 01-28-2022 Results Test Name Value Interpretation Reference Range Facility Internal Medicine Office Vis yadira 10-10-2024 Internal Medicine Office Visit [facility] [address] [place] [id number] OFFICE VISIT Date of Service: 10/10/24 MR#: [id number] Acct: [id number] Name: LORI LUEVANO Rep #: [id number] : 1990 Provider: Dr. Ivania arriaga MD Age/Sex: 34/F Location: [facility] [place] Status: Signed Intake Vital Signs 08/18/23 08:41 10/10/24 17:21 Height 5 ft 4 in 5 ft 4 in Weight: 265 lb 2 oz BMI 45.5 BP 132/78 H Blood Pressure Location Lt brachial Position Sitting Respiration 16 Pulse 83 Pulse Source Monitor Temp 97.9 F Temp Source Temporal Pulse Oximetry (%) 97 Oxygen Delivery Method room air Intake Visit Reasons: FOLLOW UP Chief Complaint: fu Portable Grinding Machine Operator Required: No Accompanied by: Self Is patient in pain?: No Allergies No Known Allergies Allergy (Verified 10/10/24 17:18) Medications ???Medication ???Instructions ???Recorded ???Confirmed ???Type Saccharomyces boulardii 250 mg 250 mg PO BID 10/10/24 10/10/24 Hi story capsule (Digest Probiotic (S.boulardii)) biotin 2,500 mcg capsule 2,500 mcg PO QDAY 10/10/24 5 History collagen,hydrolysate 500 mg-biotin cap PO QDAY 10/10/24 10/10/24 Hi story 800 mcg-ascorbic acid 50 mg capsule (Collagen 1500 Plus C) lysine 500 mg tablet (L-Lysine) 500 mg PO QDAY 10/10/24 10/10/24 H istory magnesium 250 mg tablet 250 mg PO QDAY 10/10/24 10/10/24 H istory multivitamin 1 tab PO QDAY 10/10/24 10/10/24 Hi story omeprazole 40 mg capsule,delayed 40 mg PO DAILY #90 caps 10/10/24 0 10/10/24 Rx release Nurse's Note: requesting blood work and basic physical [facility] Medical History (Updated 10/10/24 @ 17:[address] Ivania Gray MD) Screening for thyroid disorder Morbid obesity Genital herpes GERD (gastroesophageal reflux disease) Preventative health care Diarrhea Nausea High triglycerides Chronic headaches PCOS (polycystic ovarian syndrome) Abdominal pain Multiple thyroid nodules Anxiety Surgical History History of thyroid surgery history wisdom teeth removed History of laparoscopic cholecystectomy Family History Grandmother Arthritis Breast cancer Skin cancer Diabetes Thyroid disorder High cholesterol Hypertension Grandfather Skin cancer Hypertension High cholesterol Mother Depression High cholesterol Thyroid disorder Father High cholesterol Severe allergy Social History Smoking Status: Never smoker alcohol intake: current alcohol intake frequency: a few times a month substance use type: does not use caffeine: Yes what type of physical activity do you participate in: walking frequency: 3-4 times per week seatbelt use: always do you feel safe at home: Yes additional social history: Single-Works at [employer] HPI Chief Complaint: fu Details: Lori Cornelius, is a 34-year-old female presenting for a wellness visit and management of chronic conditions. The patient reports a history of gastroesophageal reflux disease, experiencing a persistent burning sensation in the stomach despite attempts to reduce omeprazole dosage from 40 mg to 20 mg. The symptoms are not influenced by dietary intake or timing, indicating a need for continued medication at the current dosage. She has a known diagnosis of polycystic ovarian syndrome (PCOS), with symptoms including hair thinning on the scalp and increased hair growth on the chin. The patient is concerned about hormone levels and thyroid function, requesting lab tests to assess these parameters. The patient has a history of thyroid nodules, with a previous ultrasound showing bilateral nodules s/p biopsy. No acute concerns reported in that regard. Attestation: Documentation on this patient encounter was supported using ambient scribe technology/ voice AI technology. The patient consented to recording for the purpose of documenting the encounter. Provider reviewed content of the generated note prior to signature. ROS Const Constitutional: No body ache, excessive sweating, fatigue, fever(s), frequent falls, headache(s), snoring, weakness, weight change, sleep problems or change in appetite Eyes Eyes: No blurry vision, change in vision, dry eyes, eye pain or Light sensitivity ENT ENT: No abnormal hearing, ear or mastoid pain, tinnitus, dizziness/vertigo, nasal congestion, headache(s), neck pain or sore throat Resp Respiratory: No cough, excessive phlegm production, hemoptysis, shortness of breath, snoring or wheezing Cardio Cardiology: No chest pain at rest, chest pain with exertion, excessive sweating, shortness of breath, dyspnea on exertion, lightheadedness, orthopnea or palpitatio (more content not included)... [facility] [id number] 36 Attempted to call calling restrictions [facility] 36on 07-19-2024 36 Attempted to call pt VM has not been set up yet [facility] 36 ----- Message from Isha Rayo sent at 06/06/2024 3:19 PM EST ----- Regarding: appt Annual rescheduled? Normal [facility] Office Visit Reporton 2023 Office Visit Report [facility] [address] [place] [address] OFFICE VISIT Date of Service: 12/15/23 MR#: [id number] Acct: [id number] Patient: LORI LUEVANO Rep #: [id number] : 1990 Provider: SINDHU Topete Age/Sex: 33/F Location: [facility] [place] Status: Signed Intake Vital Signs 08/18/23 08:41 Height 5 ft 4 in Weight: 239 lb BMI 41.0 BP 120/78 Blood Pressure Location Lt brachial Position Sitting Respiration 16 Pulse 109 H Pulse Source Monitor Temp 97.6 F L Temp Source Temporal Pulse Oximetry (%) 98 Oxygen Delivery Method room air Intake Visit Reasons: PE NON DOT DRUG SCREEN/ CCHO Chief Complaint: Follow-up chronic conditions. Urinary concerns. Allergies No Known Allergies Allergy (Verified 08/18/23 08:37) Office Procedures [facility] Billing Sheet Testing Pre-Employment Drug Screen [facility] Home: Yes 01/31/2455 Date Gunnar Rodgersign Signature: Date (if applicable) CC: Normal [facility] Urinalysis macro (dipstick) panel (U)on 08-23-2023 Bilirubin, UA Moderate [facility] Blood, UA Negative [facility] Glucose, UA Negative [facility] Interpretation and review of laboratory results Abnormal [facility] Ketones, POC (mg/dL) 5 mg/dL [facility] Leukocytes, UA Large [facility] Nitrite, UA Positive [facility] pH, UA 5.5 [facility] Protein, UA Negative [facility] Spec Grav, UA 1.020 [facility] Urobilinogen, UA 2.0 [facility] Radiology Study observation (narrative) [facility] Basophil percentageOrdered B y: Ivania Gray on 08-18-2023 Basophil percentage 25-50 SEEN /hpf 0-5 [facility] Bilirubin Test strip Ql (U)O rdered By: Ivania Gray on 08-18-2023 Bilirubin Ql (U) 6 mg/dL Negative [facility] Comment on above: COLOR OF URINE MAY A FFECT DIPSTICK RESULTS. Culture, urineOrdered By: Naresh Gray on 08-18-2023 Bacteria identified Cx Nom (U) Escherichia coli [facility] Ketones Test strip Ql (U)Ord ered By: Ivania Gray on 08-18-2023 Ketones Ql (U) Negative Negative [facility] Mucus LM Ql (Urine sed)Order ed By: Ivania Gray on 08-18-2023 Mucus Ql (Urine sed) 0 SEEN /hpf [facility] Nitrite Test strip Ql (U)Ord ered By: Ivania Gray on 08-18-2023 Nitrite Ql (U) Positive Negative [facility] No Panel InformationOrdered By: Ivania Gray on 08-18-2023 Urine RBC 0-5 SEEN /hpf 0-5 [facility] Protein Test strip Ql (U)Ord ered By: Ivania Gray on 08-18-2023 Protein Ql (U) 30 mg/dl Negative [facility] Squamous epithelial cells de tection in urine sediment by light microscopyOrdered By: Ivania Gray on 08-18-2023 Epithelial cells.squamous LM Ql (Urine sed) 0-5 SEEN /hpf 5-10 [facility] Urine blood detectionOrdered By: Ivania Gray on 08-18-2023 RBC Ql (U) 10 /ul Negative [facility] Urine clarityOrdered By: Nathan Gray on 08-18-2023 Clarity (U) Sl. Cloudy Clear [facility] Urine color determinationOrd ered By: Ivania Gray on 08-18-2023 Color (U) Yellow Yellow [facility] Urine glucose detectionOrder ed By: Ivania Gray on 08-18-2023 Glucose Ql (U) Normal mg/dl Normal [facility] Urine leukocyte esterase det ection by dipstickOrdered By: Ivania Gray on 08-18-2023 Leukocyte esterase Test strip Ql (U) 500 /ul Negative [facility] Urine pHOrdered By: Mari Gray on 08-18-2023 pH (U) 6.0 [pH] 5.0 - 8.0 [facility] Urine sediment bacteria coun t by microscopy (number/high power field)Ordered By: Ivania Gray on 08-18-2023 Bacteria LM.HPF (Urine sed) [#/Area] 2 /[HPF] None Seen [facility] Urine specific gravity measu rementOrdered By: Ivania Gray on 08-18-2023 Specific gravity (U) [Rel density] 1.025 1.002-1.030 [facility] Urine urobilinogen measureme ntOrdered By: Ivania Gray on 08-18-2023 Urobilinogen Ql (U) 8 mg/dl Normal [facility] HCG ( test) Ql (U)o n 07-25-2023 Beta HCG ( test) Ql (U) [id number] [facility] Interpretation and review of laboratory results Normal [facility] [employer] NEGATIVE QC Pass [facility] [employer] POSITIVE QC Pass [facility] Preg Test, Ur Negative Negative [facility] Radiology Study observation (narrative) [facility] Absolute lymphocyte countOrd ered By: Ivania Gray on 01-11-2023 Lymphocytes Auto (Unsp spec) [#/Vol] 3.33 10*3/uL 0.83-4.51 [facility] Basophil percentageOrdered B y: Ivania Gray on 01-11-2023 Basophils/100 WBC (Bld) 0.8 % 0-1 [facility] Bilirubin [Mass/Vol] 0.60 mg/dL 0.20-1.00 [facility] Comment on above: For patients on eltr ombopag therapy, use of Dimension D[place]gren TBIL is not recommended. Chloride [Moles/Vol] 109 mmol/L 98-107 [facility] Cholesterol [Mass/Vol] 168 mg/dL <200 [facility] Comment on above: <200 mg/dL Desirable 200-240 mg/dL Borderline >240 mg/dL High Risk Eosinophils/100 WBC (Bld) 2.7 % 0-5 [facility] Glucose [Mass/Vol] 95 mg/dL 74-106 [facility] Neutrophils (Bld) [#/Vol] 7.1 10*3/uL 2.0-7.7 [facility] Neutrophils/100 WBC (Bld) 60.3 % 47-70 [facility] Potassium [Moles/Vol] 4.0 mmol/L 3.5-5.1 [facility] Protein [Mass/Vol] 7.3 g/dL 6.4-8.2 [facility] Sodium [Moles/Vol] 140 mmol/L 136-145 [facility] Triglyceride [Mass/Vol] 208 mg/dL <199 [facility] Comment on above: The drugs N-Acetylcy steine and Metamizole may falsely depress this assay.Serum Triglycerides Reference Interval Normal <150 mg/dL Borderline high 150 - 199 mg/dL High 200 - 499 mg/dL Very High > or = 500 mg/dL WBC (Bld) [#/Vol] 11.7 10*3/uL 4.4-11.0 [facility] Blood erythrocytes count (nu mber/volume)Ordered By: Ivania Gray on 01-11-2023 RBC (Bld) [#/Vol] 5.05 10*6/uL 4.2-5.4 [facility] Blood hemoglobin measurement (mass/volume)Ordered By: Ivania Gray on 01-11-2023 Hemoglobin (Bld) [Mass/Vol] 13.7 g/dL 12.0-15.0 [facility] Blood lymphocytes/100 leukoc ytesOrdered By: Ivania Gray on 01-11-2023 Lymphocytes/100 WBC (Bld) 28.4 % 19-41 [facility] Blood monocytes/100 leukocyt esOrdered By: Ivania Gray on 01-11-2023 Monocytes/100 WBC (Bld) 7.4 % 0-10 [facility] Blood platelet mean volumeOr dered By: Ivania Gray on 01-11-2023 Platelet mean volume (Bld) [Entitic vol] 9.8 fL 6.2-12.0 [facility] Determination of erythrocyte mean corpuscular volume (MCV)Ordered By: Ivania Gray on 01-11-2023 MCV (RBC) [Entitic vol] 83.6 fL 81-99 [facility] Hematocrit Auto (Bld) [Volum e fraction]Ordered By: [facility] Living[facility]ontana on 01-11-2023 Hematocrit (Bld) [Volume fraction] 42.2 % 37-47 [facility] - Chemistry and C hemistry - challengeOrdered By: [facility] Mikitana on 01-11-2023 ALP [Catalytic activity/Vol] 53 U/L 45-117 [facility] ALT [Catalytic activity/Vol] 28 U/L 13-56 [facility] CO2 [Moles/Vol] 25.0 mmol/L 21.0-32.0 [facility] Globulin (S) [Mass/Vol] 3.7 g/dL 2.2-4.2 [facility] Urea nitrogen/Creatinine [Mass ratio] 12.4 mg/mg 10-20 [facility] - Hematology and Cell countsOrdered By: efrenbellflowercecilia Livingstontana on 01-11-2023 Erythrocyte distribution width (RBC) [Entitic vol] 40.0 fL 35.1-43.9 [facility] Erythrocyte distribution width (RBC) [Ratio] 13.2 % 11.6-14.6 [facility] Immature granulocytes/100 WBC (Bld) 0.400 % 0.0-0.9 [facility] Comment on above: IG% - Immature Granu locytes (promyelocytes, myelocytes and metamyelocytes) > 1% indicates that a LEFT SHIFT is Present. MCH (RBC) [Entitic mass] 27.1 pg 27.0-32.0 [facility] Nucleated RBC/100 WBC (Bld) [Ratio] 0 % 0-5 [facility] Auto (RBC) [Mass/Vol]Or dered By: Ivania Gray on 01-11-2023 MCHC (RBC) [Mass/Vol] 32.5 g/dL 32-36 [facility] No Panel InformationOrdered By: Ivania Gray on 01-11-2023 Estimated GFR (MDRD) Amer 120 mL/min >60 [facility] Comment on above: GFR Calc Estimated GFR (MDRD) Non-Af Amer 99 mL/min >60 [facility] Comment on above: Non- GFR Calc Platelets bldOrdered By: Nathan Grya on 01-11-2023 Platelets (Bld) [#/Vol] 360 10*3/uL 150-450 [facility] Serum or plasma albumin cata urement (mass/volume)Ordered By: Ivania Gray on 01-11-2023 Albumin [Mass/Vol] 3.6 g/dL 3.2-5.0 [facility] Serum or plasma albumin/glob ulin mass ratioOrdered By: Ivania Gray on 01-11-2023 Albumin/Globulin [Mass ratio] 1.0 {ratio} 0.9-2.4 [facility] Serum or plasma calcium cata urement (mass/volume)Ordered By: Ivania Gray on 01-11-2023 Calcium [Mass/Vol] 9.2 mg/dL 8.5-10.1 [facility] Serum or plasma cholesterol in HDL measurement (mass/volume)Ordered By: Ivania Gray on 01-11-2023 Cholesterol in HDL [Mass/Vol] 47 mg/dL >40 [facility] Comment on above: The drugs N-Acetylcy steine and Metamizole may falsely depress this assay. Reference Range HDL <40 mg/dL Low HDL Cholesterol HDL >or= 60 mg/dL High HDL Cholesterol Serum or plasma cholesterol in VLDL measurement (mass/volume)Ordered By: Ivania Gray on 01-11-2023 Cholesterol in VLDL [Mass/Vol] 42 mg/dL 5-40 [facility] Serum or plasma creatinine m easurement (mass/volume)Ordered By: Ivania Gray on 01-11-2023 Creatinine [Mass/Vol] 0.72 mg/dL 0.55-1.02 [facility] Comment on above: The validity of the calculated GFR & GFRAA in patients over 70 years has not been determined. Clinical correlation is essential. Serum or plasma low density lipoprotein (LDL) cholesterol measurement (mass/volume)Ordered By: Ivania Gray on 01-11-2023 Cholesterol in LDL [Mass/Vol] 79 mg/dL 0-130 [facility] Serum or plasma urea nitroge n measurement (mass/volume)Ordered By: Ivania Gray on 01-11-2023 Urea nitrogen [Mass/Vol] 9 mg/dL 7-18 [facility] Thin prep Papanicolaou smear with manual screeningOrdered By: Jazlynbellflowercecilia Gray on 01-11-2023 Thin prep Papanicolaou smear with manual screening 13 U/L 15-37 [facility] Thin prep Papanicolaou smear with manual screening 6 5-15 [facility] CNOVon 03-16-2021 CNKAREEM Office Visit (EXPBEA ) LORI LUEVANO ([id number]) 1990 [facility] Date Time Provider Department 03/16/21 10:00 AM CARMELITA RAYMOND EXPALFREDO During your visit today, we recorded the following information about you: Temperature Pulse Blood pressure 97 degrees 80/minute 135/83 Carmelita Raymond PA-C 03/16/2021 10:48 AM Signed This note was created using SOHM. Subjective Lori Luevano is a 30 year old female. Pt c/o cough and URI x 5 days. She now has a plugged left ear and raspy voice. She has tried OTC decongestant and antihistamine and mucus expectorant without relief. No recent sick exposure. She took a COVID test yesterday and she is negative. The history is provided by the patient. Cough This is a new problem. The current episode started more than 2 days ago. The problem occurs constantly. The problem has been gradually worsening. The cough is productive of purulent sputum. There has been no fever. Associated symptoms include ear pain, headaches, rhinorrhea and sore throat. She has tried decongestants for the symptoms. She is not a smoker. Her past medical history is significant for bronchitis. Review of Systems Constitutional: Negative. HENT: Positive for congestion, ear pain, postnasal drip, rhinorrhea, sinus pressure, sore throat and voice change. Eyes: Negative. Respiratory: Positive for cough. Cardiovascular: Negative. Gastrointestinal: Negative. Musculoskeletal: Negative. Neurological: Positive for headaches. Objective BP 135/83 Pulse 80 Temp 36.1 ?C (97 ?F) LMP 01/01/2021 SpO2 100% Physical Exam Vitals and nursing note reviewed. Constitutional: Appearance: Normal appearance. She is well-developed. She is obese. HENT: Head: Normocephalic and atraumatic. Right Ear: Hearing, ear canal and external ear normal. A middle ear effusion is present. Tympanic membrane has decreased mobility. Left Ear: Ear canal and external ear normal. Decreased hearing noted. Tenderness present. A middle ear effusion is present. Tympanic membrane is erythematous and bulging. Tympanic membrane has decreased mobility. Nose: Mucosal edema present. Right Turbinates: Swollen. Left Turbinates: Swollen. Right Sinus: Maxillary sinus tenderness present. Left Sinus: Maxillary sinus tenderness present. Mouth/Throat: Lips: [place]. Mouth: Mucous membranes are moist. Pharynx: Oropharynx is clear. Uvula midline. Cardiovascular: Rate and Rhythm: Normal rate and regular rhythm. Heart sounds: Normal heart sounds, S1 normal and S2 normal. Pulmonary: Effort: Pulmonary effort is normal. Breath sounds: Normal breath sounds and air entry. No decreased breath sounds, wheezing, rhonchi or rales. Lymphadenopathy: Head: Right side of head: Submental and submandibular adenopathy present. Left side of head: Submental and submandibular adenopathy present. Cervical: No cervical adenopathy. Skin: General: Skin is warm and dry. Neurological: General: No focal deficit present. Mental Status: She is alert and oriented to person, place, and time. Psychiatric: Behavior: Behavior is cooperative. Assessment and Plan ASSESSMENT/PLAN: 1. Acute otitis media, left - ICD9: 382.9, ICD10: H66.92 (primary diagnosis) - Will begin treatment with Augmentin 875 mg PO BID for 10 days - The patient should also be given OTC decongestants prn, OTC cough and cold meds as needed, warm salt water gargles, throat lozenges and/or OTC throat spray as needed and nasal saline gtts and suction prn for the first 5-7 days of treatment. - Supportive care with plenty of fluids, rest, and analgesia prn. - Follow up in one week if symptoms persist or worsen. - AMOXICILLIN 875 MG-POTASSIUM CLAVULANATE 125 MG TABLET 2. Cough - ICD9: 786.2, ICD10: R05.9 - Take rx as prescribed - If cough worsens or does not improve, follow up with your PCP - BENZONATATE 100 MG CAPSULE - ALBUTEROL SULFATE HFA 90 MCG/ACTUATION AEROSOL INHALER JERAMY Stevenson PA-C 03/16/2021 10:41 AM Addendum Otitis media is an infection of the middle ear. The middle ear sits behind the eardrum. This infection may be caused by a virus or bacteria and often follows a cold. Otitis media is not contagious. INSTRUCTIONS: 1. If an antibiotic has been prescribed,it should be taken exactly as prescribed. Do not stop the medicine even if the symptoms go away. 2. Yfpy-rrr-yhuhxso pain medication may be taken or other pain medication as prescribed by the doctor. 3. Nothing should be placed in the ear unless instructed by your doctor. 4. The patient may return to school or work when the temperature is normal (98.6 F or 37 C). 5. The patient should not swim while the ear is infected. CALL YOUR PRIMARY CARE PROVIDERS OFFICE- -If you do not feel better within 48-72 hours. -If you develop a temperature over 102 F (39 C). -If you develop drainage (more content not included)... Normal [facility] Rosy 03-16-2021 [facility] Telephone (CORPMN) LORI LUEVANO ([id number]) 1990 [facility] Date Time Provider Department 03/16/21 RIDGE MCCRAY During your visit today, we recorded the following information about you: Allergies As of Date: 03/16/2021 (No Known Allergies) Date Reviewed: 03/08/2021 Reviewed by: Glory Hair RN - Fully Assessed Reason for Visit: [facility] COVID Outreach [[id number]] Prescriptions as of 03/16/2021 - metroNIDAZOLE (FLAGYL) 500 mg tablet Take 1 tablet by mouth twice daily. for vaginosis. Do not drink alcohol while taking this medication - multivitamin (MULTIPLE VITAMINS ORAL) Take by mouth. - APPLE CIDER VINEGAR ORAL Take 2 tablets by mouth. - Lactobacillus acidophilus (PROBIOTIC ORAL) Take by mouth. - aspirin, enteric coated (ASPIRIN, ENTERIC COATED) 81 mg EC tablet Take 81 mg by mouth. - MEDICATION, NON-DATABASE 2 capsules once daily. LEANDRA-D-CHIRO INOSITOL SUPPOSRT HORMONE BALANCE - Drospirenone-Ethinyl Estradiol (LEESA, 28,) 3-0.03 mg per tablet Take 1 tablet by mouth once daily. - Omeprazole Magnesium 20 mg tablet Take 20 mg by mouth once daily. Problem List As Of Date 03/16/2021 Noted Resolved Obesity, Class III, BMI >= 40 [E66.01] 01/05/2021 Encounter Status:Closed by TREMAYNE GARCIA RN on 03/16/21 Normal [facility] CG COVID w Flu A+Bon 021 Influenza A PCR Negative [facility] Comment on above: Performed By: #### C GCFLU ####[facility] [address] [place], [place] [phone] Influenza B PCR Negative Normal [facility] Comment on above: Performed By: #### C GCFLU ####[facility] [address] [place], [place] [phone] SARS-CoV-2 (COVID-19) RNA DILAN+probe Ql (Unsp spec) UPPER RESPIRATORY TRACT SWAB Normal [facility] Comment on above: Performed By: #### C GCFLU ####[facility] [place], [place] [phone] SARS-CoV-2 (COVID-19) RNA DILAN+probe Ql (Unsp spec) Negative for COVID19 (SARS CoV2) by RT-PCR or equivalent method. Normal Negative for COVID19 (SARS CoV2) by RT-PCR or equivalent method. [facility] Comment on above: Result Comment: This test was developed and its performance characteristics determined by [facility]'s Psychiatric Pathology and [facility] [place]. This test has been authorized by FDA under an Emergency Use Authorization (EUA). This test has been validated in accordance with the FDA's Guidance Document Policy for Diagnostics Testing in Laboratories Certified to Perform High Complexity Testing under CLIA prior to Emergency use Authorization for Coronavirus Disease 2019 during the Public Health Emergency issued on June 22, 2019. Test performed by [facility], Psychiatric Pathology and Laboratory Medicine [place], [address] [place], [place] [address]. Performed By: #### C GCFLU ####[facility] [place], [place] [phone] Rosy 03-15-2021 CARLOS Telephone (CORPMN) MORGANLORI ALEJANDRO ([id number]) 1990 [facility] Date Time Provider Department 03/15/21 M[place]RIS BEARDEN During your visit today, we recorded the following information about you: Morris Bearden APRN.CNP 03/15/2021 10:15 AM Signed Symptomatic Caregiver COVID Call Patient Name: Lori Luevano Date of : 1990 Primary Care Physician: Daily Post APRN.CNP Service Date: 03/15/2021 Service Time: 10:11 AM Symptomatic Caregiver COVID Call - confirmed: Yes -Caregiver employee ID: [id number] -Symptom onset: 03/11/21 -Vaccinated: pfizer 2nd dose june -Booster: no -Positive exposure: no Current Symptoms: Nasal discharge, cough Plan -Caregiver COVID19 test ordered and scheduled -Reinforced self-isolation, avoiding public areas and gatherings, pending COVID19 result -Mask while home with family and not isolated alone -Advised no work pending COVID19 result -Advised to seek evaluation by primary care provider, [facility], or ED with worsening or escalating symptoms -Advised to call the COVID Hotline with outstanding questions/comments/conc erns Signature: Morris Bearden APRN.CNP Patient Name: Lori Luevano Date: 03/15/2021 Time: 10:11 AM Pager/Contact: Allergies As of Date: 03/15/2021 (No Known Allergies) Date Reviewed: 03/08/2021 Reviewed by: Glory Hair RN - Fully Assessed Reason for Visit: Covid-19 Hotline [0314] Primary Visit Diagnosis:Suspected 2019 novel coronavirus infection [Z20.822] Order(s):CAREGIVER COVID + FLU A/B, ROUTINE [SQCGCFLU] Order #: [id number] FUTURE Prescriptions as of 03/15/2021 - metroNIDAZOLE (FLAGYL) 500 mg tablet Take 1 tablet by mouth twice daily. for vaginosis. Do not drink alcohol while taking this medication - multivitamin (MULTIPLE VITAMINS ORAL) Take by mouth. - APPLE CIDER VINEGAR ORAL Take 2 tablets by mouth. - Lactobacillus acidophilus (PROBIOTIC ORAL) Take by mouth. - aspirin, enteric coated (ASPIRIN, ENTERIC COATED) 81 mg EC tablet Take 81 mg by mouth. - MEDICATION, NON-DATABASE 2 capsules once daily. LEANDRA-D-CHIRO INOSITOL SUPPOSRT HORMONE BALANCE - Drospirenone-Ethinyl Estradiol (LEESA, 28,) 3-0.03 mg per tablet Take 1 tablet by mouth once daily. - Omeprazole Magnesium 20 mg tablet Take 20 mg by mouth once daily. Problem List As Of Date 03/15/2021 Noted Resolved Obesity, Class III, BMI >= 40 [E66.01] 01/05/2021 Encounter Status:Closed by MORRIS BEARDEN on 03/15/21 [facility]URSEon 03-08-2021 [facility] LORI LUEVANO ([id number]) 1990 [facility] Date Time Provider Department 03/08/21 9:00 AM INJECTION NURSE [facility] BEACOBGYBD During your visit today, we recorded the following information about you: Blood pressure 120/83 Glory Hair RN 03/08/2021 9:25 AM Signed Glory Hair RN 03/08/2021 9:25 AM Signed Lori Jung today for an injection of Gardasil Last dose given: 01/06/2021 Patient's last menstrual period was 01/01/2021. Gardasil given in left deltoid, patient tolerated well. Lot# [id number] Exp Date 08/2022 First dose of Gardasil given: 01/06/2021 Glory Hair RN Referring Provider: NOELLE CANO [[id number]] Allergies As of Date: 03/08/2021 (No Known Allergies) Date Reviewed: 03/08/2021 Reviewed by: Glory Hair RN - Fully Assessed Primary Visit Diagnosis:Human papilloma virus (HPV) type 9 vaccine administered [Z23] Other Visit Diagnosis:Vaccine counseling [Z71.85] Prescriptions as of 03/08/2021 - metroNIDAZOLE (FLAGYL) 500 mg tablet Take 1 tablet by mouth twice daily. for vaginosis. Do not drink alcohol while taking this medication - multivitamin (MULTIPLE VITAMINS ORAL) Take by mouth. - APPLE CIDER VINEGAR ORAL Take 2 tablets by mouth. - Lactobacillus acidophilus (PROBIOTIC ORAL) Take by mouth. - aspirin, enteric coated (ASPIRIN, ENTERIC COATED) 81 mg EC tablet Take 81 mg by mouth. - MEDICATION, NON-DATABASE 2 capsules once daily. LEANDRA-D-CHIRO INOSITOL SUPPOSRT HORMONE BALANCE - Drospirenone-Ethinyl Estradiol (LEESA, 28,) 3-0.03 mg per tablet Take 1 tablet by mouth once daily. - Omeprazole Magnesium 20 mg tablet Take 20 mg by mouth once daily. Problem List As Of Date 03/08/2021 Noted Resolved Obesity, Class III, BMI >= 40 [E66.01] 01/05/2021 Encounter Status:Closed by GLORY HAIR on 03/08/21 Normal [facility] [id number] Ag +HIV12 Abon 01-06 HIV 12 Ag/Ab Non-Reactive Normal Non Reactive [facility] Comment on above: Performed By: #### A HBSAG, AHCV1B, HIV12C, SYPHTX, HSVG12 ####[facility] [place], [place] [phone] HIV-1/2 Antibody Normal [facility] Comment on above: Result Comment: Test Not Indicated Negative No evidence of HIV-1 or HIV-2 infection. Should recent infection be suspected, repeat testing may be considered 2-3 weeks after this draw. HIV Information: [place] Rev. Code 3701.243(E): This information has been disclosed to you from confidential records protected from disclosure by state law. You shall make no further disclosure of this information without the specific, written, and informed release of the individual to whom it pertains or as otherwise permitted by state law. A general authorization for the release of medical or other information is not sufficient for the purpose of the release of HIV test results or diagnoses. Performed By: #### A HBSAG, AHCV1B, HIV12C, SYPHTX, HSVG12 ####[place] [id number] [place], [place] [phone] HSVG Typ 1 and 2 Abson 01-06 Herpes Simplex IgG 1 <0.2 [facility] Comment on above: Result Comment: INDE X VALUES ARE INTERPRETED FOLLOWS: NEGATIVE SPECIMENS <0.9 EQUIVOCAL SPECIMENS 0.9 TO 1.0 POSITIVE SPECIMENS >=1.1 Performed By: #### A HBSAG, AHCV1B, HIV12C, SYPHTX, HSVG12 ####[place] [id number] [place], [place] [phone] Herpes Simplex IgG 2 <0.2 Normal [facility] Comment on above: Result Comment: INDE X VALUES ARE INTERPRETED FOLLOWS: NEGATIVE SPECIMENS <0.9 EQUIVOCAL SPECIMENS 0.9 TO 1.0 POSITIVE SPECIMENS >=1.1 Performed By: #### A HBSAG, AHCV1B, HIV12C, SYPHTX, HSVG12 ####[place] [phone] HSV IgG 1 Qualitative Negative Normal Negative [facility] Comment on above: Result Comment: No H SV-1 IgG antibodies detected. Patient is presumed not to have had a previous HSV-1 infection. Performed By: #### A HBSAG, AHCV1B, HIV12C, SYPHTX, HSVG12 ####[address] [phone] HSV IgG 2 Qualitative Negative Normal Negative [facility] Comment on above: Result Comment: No H SV-2 IgG antibodies detected. Patient is presumed not to have had a previous HSV-2 infection. Performed By: #### A HBSAG, AHCV1B, HIV12C, SYPHTX, HSVG12 ####[address] [phone] Hep C Ab IA w/Confon Hepatitis C Ab IA Negative Normal Negative [facility] Comment on above: Performed By: #### A HBSAG, AHCV1B, HIV12C, SYPHTX, HSVG12 ####[address] [phone] HepB Surface Ab,Qualon 01-06 HepB Surface Ab,Qual Negative Normal Negative [facility] Comment on above: Result Comment: NEGA TIVE Performed By: #### A HBSAG, AHCV1B, HIV12C, SYPHTX, HSVG12 ####[facility] [address] [place], [place] [phone] Syphilis Ttl w/Reflxon 01-06 Syphilis Interp Cannot exclude recen t Treponemal infection if specimen collected within 7 to 10 days after appearance of suspect lesions or 2 to 3 weeks after an exposure. Clinical correlation is required. Normal [facility] Comment on above: Performed By: #### A HBSAG, AHCV1B, HIV12C, SYPHTX, HSVG12 ####[facility] [address] [place], [place] [phone] Syphilis Screen Rslt Non-Reactive Normal Non Reactive [facility] Comment on above: Performed By: #### A HBSAG, AHCV1B, HIV12C, SYPHTX, HSVG12 ####[facility] [address], [place] [phone] CNNURSEon 01-05-2021 [facility] Nurse Visit (OBGYBD) LORI LUEVANO ([id number]) 1990 [facility] Date Time Provider Department 01/05/21 3:30 PM INJECTION NURSE [facility] BEACOBGYBD During your visit today, we recorded the following information about you: Blood pressure 120/82 Blanca Lewis RN 01/05/2021 3:44 PM Signed Patient identified by name and date of . Lori Luevano is here for her HPV 9 vaccination, injection # one of the series. Patient ?No Gardasil injection was given without incident. See immunizations for details of immunizations administered today. VIS sheet provided: Yes Patient advised to follow up in 2 months from the 1st injection Provider Dr. Cano was present in office at time of injection. Blanca Lewis RN Referring Provider: SELF [[id number]] Allergies As of Date: 01/05/2021 (No Known Allergies) Date Reviewed: 01/05/2021 Reviewed by: Blanca Lewis RN - Fully Assessed Reason for Visit: Nurse Visit [792] Primary Visit Diagnosis:Need for HPV vaccination [Z23] Prescriptions as of 01/05/2021 - multivitamin (MULTIPLE VITAMINS ORAL) Take by mouth. - APPLE CIDER VINEGAR ORAL Take 2 tablets by mouth. - Lactobacillus acidophilus (PROBIOTIC ORAL) Take by mouth. - aspirin, enteric coated (ASPIRIN, ENTERIC COATED) 81 mg EC tablet Take 81 mg by mouth. - MEDICATION, NON-DATABASE 2 capsules once daily. LEANDRA-D-CHIRO INOSITOL SUPPOSRT HORMONE BALANCE - Drospirenone-Ethinyl Estradiol (LEESA, 28,) 3-0.03 mg per tablet Take 1 tablet by mouth once daily. - fluconazole (DIFLUCAN) 150 mg tablet Take 1 tablet by mouth one time only for 1 dose. - Omeprazole Magnesium 20 mg tablet Take 20 mg by mouth once daily. Problem List As Of Date 01/05/2021 Noted Resolved Obesity, Class III, BMI >= 40 [E66.01] 01/05/2021 Visit Notes: >> Blanca Lewis RN MonJan 05, 2021 3:43 PM Status: Signed Patient identified by name and date of . Lori Luevano is here for her HPV 9 vaccination, injection # one of the series. Patient ?No Gardasil injection was given without incident. See immunizations for details of immunizations administered today. VIS sheet provided: Yes Patient advised to follow up in 2 months from the 1st injection Provider Dr. Cano was present in office at time of injection. Blanca Lewis RN Encounter Status:Closed by BLANCA LEWIS RN on 01/05/21 [facility] CNOVon 01-05-2021 CNOV Office Visit (OBGYBD ) LROI LUEVANO ([id number]) 1990 [facility] Date Time Provider Department 01/05/21 10:30 AM NOELLE CANO During your visit today, we recorded the following information about you: Blood pressure Weight Last Period 122/88 124.7 kg 01/01/21 [place] Ma 01/05/2021 10:50 AM Signed Tile Sorter offered: Patient declines. Noelle Cano DO 01/05/2021 11:37 AM Signed Lori is a 30 year old who presents for an annual gynecologic exam with complaints, vaginal discharge and vulvar irritation. She is also concerned that she may have a UTI. She would also like to be tested for STDs. Of note, she has a diagnosis of PCOS. Menses: cycles every 28 days and 1-2 days of flow. Contraception: POPs HPV vaccine: No - interested in starting series Last Pap: abnormal in April per patient, patient to sign records release Last mammogram: never Family history of breast cancer: paternal grandmother - she did not complete genetic testing Sexually active: yes Incontinence: no Pelvic organ prolapse: no OB History T0 L0 SAB0 TAB0 Ectopic0 Multiple0 Live Births0 PAST MEDICAL HISTORY Diagnosis Date - Anxiety - Polycystic ovarian syndrome PAST SURGICAL HISTORY Procedure Laterality Date - COLONOSCOPY 2017 - REMOVAL GALLBLADDER 2016 FAMILY HISTORY Problem Relation Age of Onset - Skin Cancer Maternal Grandmother - Skin Cancer Paternal Grandmother - Breast Cancer Paternal Grandmother - Other Sleep Disorder Paternal great-grandmother not sure if it was cervical or ovarian cancer SOCIAL HISTORY Social History Tobacco Use - Smoking status: Never Smoker - Smokeless tobacco: Never Used Vaping Use - Vaping Use: Never used Substance Use Topics - Alcohol use: Yes - Drug use: Not Currently REVIEW OF SYSTEMS Abdomen: No abdominal pain, nausea, vomiting, diarrhea, or constipation. No bloating, early satiety, indigestion, or increased flatulence. Bladder: No dysuria, gross hematuria, urinary frequency, urinary urgency, or incontinence. Breast: No breast lumps, nipple d/c, overlying skin changes, redness or skin retraction. Allergies and current medication updated:Yes EXAM: BP 122/88 Wt 275 lb (124.7kg) LMP 01/01/2021 GENERAL: pleasant, female in no apparent distress HEENT: Normocephalic, atraumatic, mucus membranes moist and no lesions NECK: Supple, full range of motion, no adenopathy DERMATOLOGY: Normal, without lesions, non-icteric and non-hirsute BREAST: soft, non-tender, symmetric, no dominant mass, normal nipple-areolar complex, no lymphadenopathy and no nipple discharge CHEST: Normal inspiratory effort ABDOMEN: soft, non-tender and no masses PELVIC: external genitalia normal, normal Bartholin's glands, urethra, Newhope's glands, no vulvar lesions, no cervical lesions, good vaginal support, thick white discharge present, normal appearing perineal body and perianal region BIMANUAL: uterus normal size, shape and consistency, no adnexal masses and non-tender RECTOVAGINAL: deferred NEURO: alert and oriented x3,exam grossly non-focal EXTREMITIES: normal ASSESSMENT/PLAN: 1) Health maintenance: Nutrition, exercise and routine health maintenance exams reviewed - referral to endocrine weight/PCOS clinic placed Patient to obtain pap records HPV injections prescribed Genetic counseling ordered secondary to family history 2) Contraceptive Management - Discussed with patient that OCPS are the recommended treatment to protect her body against uterine cancer with PCOS. R/b/a of each discussed, including risks of clots with estrogen-containing modalities - Pt denies any history of VTE, family history of a coagulation disorder. She does not smoke, and has no history of cancer. She denies a history of migraines with aura - Pt expresses desire to proceed with OCP - leesa escribed. Information given regarding OCPs 3) STD screening: Accepts full STD screeening including HIV, Syphilis and Hepatitis. 4) Vaginal discharge: affirm sent, diflucan escribed 5) Dysuria: urine dip likely contaminated, urine culture ordered 6) Follow up one year or sooner as needed DO Noelle Perez DO 01/05/2021 11:15 AM Addendum Gardasil Gardasil is a vaccine to protect against Human Papillomavirus (HPV) types 6, 11, 16, 18, 31,33,45, 52, 58. These viruses cause cancer and precancerous lesions on the cervix (opening between vagina and uterus), in the vagina and on the vulva (skin around the outside of the vagina) as well as genital warts. The vaccine cannot cause these diseases and cannot treat them if already present. Gardasil works best if given before contact with HPV. Most people are exposed to HPV soon after starting sexual activity. The vaccine is recommended between the ages of 9 and 45. Gardasil nassar (more content not included)... Normal [facility] 01-05-2021 CNPN Telephone (OBGYBD) CHLOÉLORI ([id number]) 1990 [facility] Date Time Provider Department 01/05/21 NOELLE CANO During your visit today, we recorded the following information about you: Noelle Cano DO 01/05/2021 11:34 AM Addendum Left message to call back. Patient left without getting gardasil vaccine or number for genetic counseling. Please see if she would like to get the gardasil vaccine still and please provide her with the number for genetic [phone] . Information regarding the gardasil and her OCP can be found in her after visit summary. Thank you. DO Blanca Perez RN 01/05/2021 12:01 PM Signed Left message for patient to return call to the office. Blanca Cano DO 01/07/2021 8:16 AM Signed Please also let her know that she was positive for BV and yeast. We have already treated the yeast infection. The following approved medication requests have been transmitted electronically. Signed Prescriptions Disp Refills metroNIDAZOLE (FLAGYL) 500 mg tablet 14 tablet 0 Sig: Take 1 tablet by mouth twice daily. for vaginosis. Do not drink alcohol while taking this medication Authorizing Provider: NOELLE CANO DO Dawn Valerio RN 01/07/2021 4:26 PM Signed Message was given to patient. Patient verbalized understanding. Blanca Lewis RN Allergies As of Date: 01/05/2021 (No Known Allergies) Date Reviewed: 01/05/2021 Reviewed by: Blanca Lewis RN - Fully Assessed Reason for Visit: Question [1327] Order(s):metroNIDAZOLE (FLAGYL) 500 mg tabletTake 1 tablet by mouth twice daily. for vaginosis. Do not drink alcohol while taking this medicationDisp: 14 tabletRfl: 0 Prescriptions as of 01/07/2021 - metroNIDAZOLE (FLAGYL) 500 mg tablet Take 1 tablet by mouth twice daily. for vaginosis. Do not drink alcohol while taking this medication - multivitamin (MULTIPLE VITAMINS ORAL) Take by mouth. - APPLE CIDER VINEGAR ORAL Take 2 tablets by mouth. - Lactobacillus acidophilus (PROBIOTIC ORAL) Take by mouth. - aspirin, enteric coated (ASPIRIN, ENTERIC COATED) 81 mg EC tablet Take 81 mg by mouth. - MEDICATION, NON-DATABASE 2 capsules once daily. LEANDRA-D-CHIRO INOSITOL SUPPOSRT HORMONE BALANCE - Drospirenone-Ethinyl Estradiol (LEESA, 28,) 3-0.03 mg per tablet Take 1 tablet by mouth once daily. - Omeprazole Magnesium 20 mg tablet Take 20 mg by mouth once daily. Problem List As Of Date 01/05/2021 Noted Resolved Obesity, Class III, BMI >= 40 [E66.01] 01/05/2021 Prescriptions ordered this encounter Disp Refills Start End METRONIDAZOLE 500 MG TABLET 14 t* 0 01/07/2021 Route: ORAL Sig: Take 1 tablet by mouth twice daily. for vaginosis. Do not drink alcohol while taking this medication Encounter Status:Closed by BLANCA LEWIS RN on 01/07/21 Normal [facility] GC/Chlamydia Amplifon 2020 Chlamydia Amplif Negative Normal [facility] Comment on above: Performed By: #### G CCT ####[facility] [address] [place], [place] [phone] GC Amplification Negative Normal [facility] Comment on above: Performed By: #### G CCT ####[facility] [address] [place], [place] [phone] GC/Chlam Amp Source Cervix Normal [facility] Comment on above: Performed By: #### G CCT ####[place] [id number] [place], [place] [phone] Urine Cultureon 01-05-2021 Bacteria identified Cx Nom (U) Sp. Request/Comment: - Specimen received in preservative Culture Result - 10,000 - <50,000 CFU/ml Streptococcus agalactiae (Group B streptococcus) --> ABNORMAL ALERT No further workup --> ABNORMAL ALERT <10,000 CFU/ml Normal urogenital natty Critically abnormal [facility] Comment on above: Performed By: #### U RCUL ####[address] [phone] Vag Pathogens DNAon 01-06-20 Kimi sp DNA Probe Positive Critically abnormal Negative for Kimi species by DNA Probe [facility] Comment on above: Result Comment: This is indicative of candidiasis when consistent with clinical signs and symptoms. Performed By: #### V AGDNA ####[place] [phone] Omar vag DNA Probe Positive Critically abnormal Negative for Gardnerella vaginalis by DNA Probe [facility] Comment on above: Result Comment: This is suggestive, but not diagnostic of bacterial vaginosis, results should be interpreted in conjunction with other data such as pH, amine odor, clue cells and vaginal discharge characteristics. Performed By: #### V AGDNA ####[address] [phone] Trich vag DNA Probe Negative Normal Negative for Trichomonas vaginalis by DNA Probe [facility] Comment on above: Performed By: #### V AGDNA ####[facility] [place], [place] [phone] [facility] Telephone (CORPMN) LORI LUEVANO ([id number]) 1990 [facility] Date Time Provider Department 12/26/20 RIDGE MCCRAY During your visit today, we recorded the following information about you: Allergies As of Date: 12/26/2020 (No Known Allergies) Date Reviewed: 12/20/2020 Reviewed by: Sunitha Lemus DO - Fully Assessed Reason for Visit: [facility] COVID Outreach [3056] Prescriptions as of 12/26/2020 - Omeprazole Magnesium 20 mg tablet Take 20 mg by mouth once daily. - Norethindrone, Contraceptive, (SINGH-BE) 0.35 mg tablet Take 1 tablet by mouth once daily. Problem List As Of Date: 12/26/2020 (None) Encounter Status:Closed by DAYDAY HARO on 12/26/20 [facility] Rosy 12-25-2020 CNPN Telephone (CHANTELL) CHLOÉLORI ([id number]) 1990 [facility] Date Time Provider Department 12/25/20 SAM JONES During your visit today, we recorded the following information about you: Sam Jones APRN.THERMITE WELDER 12/25/2020 10:49 AM Signed Spoke with patient - meets criteria for Covid-19 testing. Symptoms: Sinus infection-- scratchy throat, PND, congestion Symptoms started 12/23 Positive contact ?: no Covid pass +/-?: no FULLY VACCINATED. No recent travel. No high risk factors. Covid 19 test ordered; [facility] 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 Recommended to call back if onset of any symptoms or worsening of symptoms. Recommended caregiver to check my chart message for the link to self- schedule the covid test. Caregiver will continue using face mask, hand hygiene and social distancing as we discussed. Caregiver's PCP (if available) has been CC'd to receive test results. The employee/patient did not have any questions or concerns at the end of our conversation. Sam Jones APRN.THERMITE WELDER Occupational Health Allergies As of Date: 12/25/2020 (No Known Allergies) Date Reviewed: 12/20/2020 Reviewed by: Sunitha Lemus DO - Fully Assessed Reason for Visit: [facility] COVID Outreach [3886] Primary Visit Diagnosis:Suspected COVID-19 virus infection [Z20.822] Order(s):CAREGIVER COVID19 [SQCGCOVD] Order #: [id number] FUTURE Prescriptions as of 12/25/2020 - Omeprazole Magnesium 20 mg tablet Take 20 mg by mouth once daily. - Norethindrone, Contraceptive, (SINGH-BE) 0.35 mg tablet Take 1 tablet by mouth once daily. Problem List As Of Date: 12/25/2020 (None) Encounter Status:Closed by ASM JONES on 12/25/20 Normal [facility] Caregiver [id number] 12-26-19 SARS-CoV-2 (COVID-19) RNA DILAN+probe Ql (Unsp spec) UPPER RESPIRATORY TRACT SWAB Normal [facility] Comment on above: Performed By: #### C GCOVD ####[facility] [address] [place], [place] [phone] SARS-CoV-2 (COVID-19) RNA DILAN+probe Ql (Unsp spec) Negative for COVID19 (SARS CoV2) by RT-PCR or equivalent method. Normal Negative for COVID19 (SARS CoV2) by RT-PCR or equivalent method. [facility] Comment on above: Result Comment: This test was developed and its performance characteristics determined by [facility] [place]. This test has been authorized by FDA under an Emergency Use Authorization (EUA). This test has been validated in accordance with the FDA's Guidance Document Policy for Diagnostics Testing in Laboratories Certified to Perform High Complexity Testing under CLIA prior to Emergency use Authorization for Coronavirus Disease 2019 during the Public Health Emergency issued on June 22, 2019. Test performed by [facility], [facility] [place], [address] [place], [place] [address]. Performed By: #### C GCOVD ####[facility] [address] [place], [place] [phone] CNPDhara 11-25-2020 CNPN Telephone (INMSOP) LORI LUEVANO ([id number]) 1990 [facility] Date Time Provider Department 11/25/20 [facility] During your visit today, we recorded the following information about you: Sherlyn Pearce 11/25/2020 1:08 PM Signed Received outside records from [employer], [facility]. Records placed in providers mailbox for review. Sherlyn Pedro Spec Corie Carmen Ma 12/01/2020 11:50 AM Signed Records placed in inbox for review.Corie Carmen Ma Allergies As of Date: 11/25/2020 (No Known Allergies) Date Reviewed: 11/17/2020 Reviewed by: Krystal Fall - Fully Assessed Reason for Visit: Received Outside Medical Records [[id number]] Prescriptions as of 12/01/2020 - Omeprazole Magnesium 20 mg tablet Take 20 mg by mouth once daily. - Norethindrone, Contraceptive, (SINGH-BE) 0.35 mg tablet Take 1 tablet by mouth once daily. Problem List As Of Date: 11/25/2020 (None) Encounter Status:Closed by SHERLYN NOGUEIRA on 11/25/20 Normal [facility] CBC and Differentialon 11-24 Abs Baso 0.07 k/uL Normal <0.11 [facility] Comment on above: Performed By: #### C MP, LIPB, TSH, AHCV1B, HIV12C, HBA1C ####[place] [address] [place] [phone] Abs Carlisle 0.81 k/uL Normal <0.87 [facility] Comment on above: Performed By: #### C MP, LIPB, TSH, AHCV1B, HIV12C, HBA1C ####[place] [address] [phone] Abs Neut 7.37 k/uL Normal 1.45-7.50 [facility] Comment on above: Performed By: #### C MP, LIPB, TSH, AHCV1B, HIV12C, HBA1C ####[place] [address] [phone] Absolute nRBC <0.01 Normal <0.01 [facility] Comment on above: Performed By: #### C MP, LIPB, TSH, AHCV1B, HIV12C, HBA1C ####[place] [address] [place] [phone] Basophils/100 WBC (Bld) 0.6 % Normal [facility] Comment on above: Performed By: #### C MP, LIPB, TSH, AHCV1B, HIV12C, HBA1C ####[place] [address] [place] [phone] DTYPE Auto Diff Normal [facility] Comment on above: Performed By: #### C MP, LIPB, TSH, AHCV1B, HIV12C, HBA1C ####[place] [address] [place] [phone] Eosinophils (Bld) [#/Vol] 0.17 10*3/uL Normal <0.46 [facility] Comment on above: Performed By: #### C MP, LIPB, TSH, AHCV1B, HIV12C, HBA1C ####[facility], [place] [phone] Eosinophils/100 WBC (Bld) 1.6 % Normal [facility] Comment on above: Performed By: #### C MP, LIPB, TSH, AHCV1B, HIV12C, HBA1C ####[facility]leveland[place], [place] [phone] Erythrocyte distribution width (RBC) [Ratio] 12.9 % Normal 11.5-15.0 [facility] Comment on above: Performed By: #### C MP, LIPB, TSH, AHCV1B, HIV12C, HBA1C ####[place] [address], [place] [phone] Hematocrit (Bld) [Volume fraction] 43.6 % Normal 36.0-46.0 [facility] Comment on above: Performed By: #### C MP, LIPB, TSH, AHCV1B, HIV12C, HBA1C ####[place] [address], [place] [phone] Hemoglobin (Bld) [Mass/Vol] 14.1 g/dL Normal 11.5-15.5 [facility] Comment on above: Performed By: #### C MP, LIPB, TSH, AHCV1B, HIV12C, HBA1C ####[place] [address], [place] [phone] Lymphocytes (Bld) [#/Vol] 2.54 10*3/uL Normal 1.00-4.00 [facility] Comment on above: Performed By: #### C MP, LIPB, TSH, AHCV1B, HIV12C, HBA1C ####[place] [address]Clevel[place], [place] [phone] Lymphocytes/100 WBC (Bld) 23.2 % Normal [facility] Comment on above: Performed By: #### C MP, LIPB, TSH, AHCV1B, HIV12C, HBA1C ####[facility], [place] [phone] MCH 26.5 pG Normal 26.0-34.0 [facility] Comment on above: Performed By: #### C MP, LIPB, TSH, AHCV1B, HIV12C, HBA1C ####[facility], [place] [phone] MCHC (RBC) [Mass/Vol] 32.3 g/dL Normal 30.5-36.0 [facility] Comment on above: Performed By: #### C MP, LIPB, TSH, AHCV1B, HIV12C, HBA1C ####[place] [address], [place] [phone] MCV (RBC) [Entitic vol] 82.0 fL Normal 80.0-100.0 [facility] Comment on above: Performed By: #### C MP, LIPB, TSH, AHCV1B, HIV12C, HBA1C ####[place] [address], [place] [phone] Monocytes/100 WBC (Bld) 7.4 % Normal [facility] Comment on above: Performed By: #### C MP, LIPB, TSH, AHCV1B, HIV12C, HBA1C ####[facility], [place] [phone] Neutrophils/100 WBC (Bld) 67.2 % Normal [facility] Comment on above: Performed By: #### C MP, LIPB, TSH, AHCV1B, HIV12C, HBA1C ####[facility], [place] [phone] NRBCs 0.0 /100 WBC Normal 0 [facility] Comment on above: Performed By: #### C MP, LIPB, TSH, AHCV1B, HIV12C, HBA1C ####[facility], [place] [phone] Platelet mean volume (Bld) [Entitic vol] 9.6 fL Normal 9.0-12.7 [facility] Comment on above: Performed By: #### C MP, LIPB, TSH, AHCV1B, HIV12C, HBA1C ####[facility] [address], [place] [phone] Platelets (Bld) [#/Vol] 401 10*3/uL High 150-400 [facility] Comment on above: Performed By: #### C MP, LIPB, TSH, AHCV1B, HIV12C, HBA1C ####[facility] [address], [place] [phone] RBC (Bld) [#/Vol] 5.32 10*6/uL High 3.90-5.20 [facility] Comment on above: Performed By: #### C MP, LIPB, TSH, AHCV1B, HIV12C, HBA1C ####[facility] [address], [place] [phone] WBC (Bld) [#/Vol] 10.96 10*3/uL Normal 3.70-11.00 [facility] Comment on above: Performed By: #### C MP, LIPB, TSH, AHCV1B, HIV12C, HBA1C ####[facility] [address], [place] [phone] CNPDhara 11-24-[facility] LORI LUEVANO ([id number]) 1990 [facility] Date Time Provider Department 11/24/20 SUNITHA LEMUS F [facility] During your visit today, we recorded the following information about you: Crystal Villeda 11/24/2020 3:03 PM Signed Patient has been identified by name and date of : Yes Date of last office visit was 11/17/2020 , if over 90 days, the patient will need a follow-up appointment; sick visit does not qualify. Type of form: [facility] AUTHORIZATION TO DISCLOSE HEALTH INFORMATION TO [facility] PHYSICIANS- [facility] MEDICAL RECORDS Date form was received: 11/24/20 Dates of Service: N/A Form received via: Fax When form is completed, contact: [facility] Number to call: [phone] FAX [phone] Form has been forwarded to: Provider's mailbox. Provider name: ALLAN Villeda Allergies As of Date: 11/24/2020 (No Known Allergies) Date Reviewed: 11/17/2020 Reviewed by: Krystal Fall - Fully Assessed Reason for Visit: Forms [933] Cmt: [facility] AUTHORIZATION TO DISCLOSE HEALTH INFORMATION TO [facility] Prescriptions as of 11/24/2020 - Omeprazole Magnesium 20 mg tablet Take 20 mg by mouth once daily. - Norethindrone, Contraceptive, (SINGH-BE) 0.35 mg tablet Take 1 tablet by mouth once daily. - sulfamethoxazole-trimet hoprim (BACTRIM DS) 800-160 mg per tablet Take 1 tablet by mouth twice daily for 7 days. Problem List As Of Date: 11/24/2020 (None) Encounter Status:Closed by CRYSTAL VILLEDA on 11/24/20 Normal [facility] Comp Metabolic Panelon 11-24 Albumin [Mass/Vol] 4.4 g/dL Normal 3.9-4.9 [facility] Comment on above: Performed By: #### C MP, LIPB, TSH, AHCV1B, HIV12C, HBA1C ####[facility] [address] [place], [place] [phone] ALP [Catalytic activity/Vol] 70 U/L Normal 34-123 [facility] Comment on above: Performed By: #### C MP, LIPB, TSH, AHCV1B, HIV12C, HBA1C ####[facility] [address], [place] [phone] ALT [Catalytic activity/Vol] 31 U/L Normal 7-38 [facility] Comment on above: Performed By: #### C MP, LIPB, TSH, AHCV1B, HIV12C, HBA1C ####[facility], [place] [phone] Anion gap [Moles/Vol] 14 mmol/L Normal 9-18 [facility] Comment on above: Performed By: #### C MP, LIPB, TSH, AHCV1B, HIV12C, HBA1C ####[place] [address] [place], [place] [phone] AST [Catalytic activity/Vol] 35 U/L Normal 13-35 [facility] Comment on above: Performed By: #### C MP, LIPB, TSH, AHCV1B, HIV12C, HBA1C ####[place] [address], [place] [phone] Bilirubin [Mass/Vol] 0.6 mg/dL Normal 0.2-1.3 [facility] Comment on above: Performed By: #### C MP, LIPB, TSH, AHCV1B, HIV12C, HBA1C ####[facility], [place] [phone] Calcium [Mass/Vol] 9.9 mg/dL Normal 8.5-10.2 [facility] Comment on above: Performed By: #### C MP, LIPB, TSH, AHCV1B, HIV12C, HBA1C ####[facility], [place] [phone] Chloride [Moles/Vol] 101 mmol/L Normal 97-105 [facility] Comment on above: Performed By: #### C MP, LIPB, TSH, AHCV1B, HIV12C, HBA1C ####[facility], [place] [phone] CO2 [Moles/Vol] 24 mmol/L Normal 22-30 [facility] Comment on above: Performed By: #### C MP, LIPB, TSH, AHCV1B, HIV12C, HBA1C ####[facility], [place] [phone] Creatinine [Mass/Vol] 0.81 mg/dL Normal 0.58-0.96 [facility] Comment on above: Performed By: #### C MP, LIPB, TSH, AHCV1B, HIV12C, HBA1C ####[facility], [place] [phone] eGFR- Amer. >60 Normal [facility] Comment on above: Performed By: #### C MP, LIPB, TSH, AHCV1B, HIV12C, HBA1C ####[facility], [place] [phone] eGFR-All Other Races >60 Normal [facility] Comment on above: Result Comment: eGFR (Estimated GFR) Units of measure: mL/min/1.73 meters squared eGFR is derived from the reexpressed MDRD Study equation using the following parameters: serum creatinine, age, gender and race. The creatinine assay has been calibrated to be traceable to IDMS. An eGFR <60 mL/min/1.73m2 for >3 months is consistent with chronic kidney disease. Refer to KDOQI guidelines for clinical interpretation. In patients with unstable renal function, e.g. those with acute kidney injury, the eGFR may not accurately reflect actual GFR. Performed By: #### C MP, LIPB, TSH, AHCV1B, HIV12C, HBA1C ####[facility] [address], [place] [phone] Glucose [Mass/Vol] 98 mg/dL Normal 74-99 [facility] Comment on above: Result Comment: The [place] Diabetes Association (ADA) provides guidance for cutoff values for fasting glucose and random glucose. The ADA defines fasting as no caloric intake for at least 8 hours. Fasting plasma glucose results between 100 to 125 mg/dL indicate increased risk for diabetes (prediabetes). Fasting plasma glucose results greater than or equal to 126 mg/dL meet the criteria for diagnosis of diabetes. In the absence of unequivocal hyperglycemia, results should be confirmed by repeat testing. In a patient with classic symptoms of hyperglycemia or hyperglycemic crisis, random plasma glucose results greater than or equal to 200 mg/dL meet the criteria for diagnosis of diabetes. Reference: Standards of Medical Care in Diabetes 2016, [place] Diabetes Association. Diabetes Care. 2016.39(Suppl 1). Performed By: #### C MP, LIPB, TSH, AHCV1B, HIV12C, HBA1C ####[facility], [place] [phone] Potassium [Moles/Vol] 4.3 mmol/L Normal 3.7-5.1 [facility] Comment on above: Performed By: #### C MP, LIPB, TSH, AHCV1B, HIV12C, HBA1C ####[address] [phone] Protein [Mass/Vol] 7.5 g/dL Normal 6.3-8.0 [facility] Comment on above: Performed By: #### C MP, LIPB, TSH, AHCV1B, HIV12C, HBA1C ####[place] [id number], [place] [phone] Sodium [Moles/Vol] 139 mmol/L Normal 136-144 [facility] Comment on above: Performed By: #### C MP, LIPB, TSH, AHCV1B, HIV12C, HBA1C ####[facility], [place] [phone] Urea nitrogen [Mass/Vol] 12 mg/dL Normal 7-21 [facility] Comment on above: Performed By: #### C MP, LIPB, TSH, AHCV1B, HIV12C, HBA1C ####[facility], [place] [phone] [id number] Ag +HIV12 Abon 11-24 HIV 12 Ag/Ab Non-Reactive Normal Non Reactive [facility] Comment on above: Performed By: #### C MP, LIPB, TSH, AHCV1B, HIV12C, HBA1C ####[place] [id number] [place], [place] [phone] HIV-1/2 Antibody Normal [facility] Comment on above: Result Comment: Test Not Indicated Negative No evidence of HIV-1 or HIV-2 infection. Should recent infection be suspected, repeat testing may be considered 2-3 weeks after this draw. HIV Information: [place] Rev. Code 3701.243(E): This information has been disclosed to you from confidential records protected from disclosure by state law. You shall make no further disclosure of this information without the specific, written, and informed release of the individual to whom it pertains or as otherwise permitted by state law. A general authorization for the release of medical or other information is not sufficient for the purpose of the release of HIV test results or diagnoses. Performed By: #### C MP, LIPB, TSH, AHCV1B, HIV12C, HBA1C ####[place] [id number] [place], [place] [phone] Hemoglobin A1con 11-24-2020 Glucose [Mass/Vol] 105 mg/dL Normal [facility] Comment on above: Result Comment: eAG: (Estimated average glucose) is a calculated value from HgbA1c and is parts counter representative of the average blood glucose level in the last 2-3 month period. Performed By: #### C MP, LIPB, TSH, AHCV1B, HIV12C, HBA1C ####[place] [id number] [place], [place] [phone] HbA1c (Bld) [Mass fraction] 5.3 % Normal 4.3-5.6 [facility] Comment on above: Result Comment: [place] Diabetes Association guidelines indicate that patients with HgbA1c in the range 5.7-6.4% are at increased risk for development of diabetes, and intervention by lifestyle modification may be beneficial. HgbA1c greater or equal to 6.5% is considered diagnostic of diabetes. Performed By: #### C MP, LIPB, TSH, AHCV1B, HIV12C, HBA1C ####[facility], [place] [phone] Hep C Ab IA w/Confon 021 Hepatitis C Ab IA Negative Normal Negative [facility] Comment on above: Performed By: #### C MP, LIPB, TSH, AHCV1B, HIV12C, HBA1C ####[place] [id number], [place] [phone] Lipid Panel, [facility] 021 Cholesterol [Mass/Vol] 186 mg/dL Normal <200 [facility] Comment on above: Result Comment: <200 mg/dL, Desirable 200-239 mg/dL, Borderline high >239 mg/dL, High Performed By: #### C MP, LIPB, TSH, AHCV1B, HIV12C, HBA1C ####[place] [address], [place] [phone] Cholesterol in HDL [Mass/Vol] 36 mg/dL Low >39 [facility] Comment on above: Result Comment: 40-5 9 mg/dL, Acceptable >59 mg/dL, High: Negative risk factor for coronary heart disease <40 mg/dL, Low: Positive risk factor for coronary heart disease Performed By: #### C MP, LIPB, TSH, AHCV1B, HIV12C, HBA1C ####[place] [id number], [place] [phone] Cholesterol in LDL [Mass/Vol] 110 mg/dL High <100 [facility] Comment on above: Result Comment: <100 mg/dL, Optimal 100-129 mg/dL, Near optimal/above optimal 130-159 mg/dL, Borderline high 160-189 mg/dL, High >189 mg/dL, Very high Secondary prevention optimal LDL Cholesterol levels are recommended to be < 70 mg/dL Performed By: #### C MP, LIPB, TSH, AHCV1B, HIV12C, HBA1C ####[place] [id number], [place] [phone] Fasting Time 12 hrs Normal [facility] Comment on above: Performed By: #### C MP, LIPB, TSH, AHCV1B, HIV12C, HBA1C ####[facility], [place] [phone] LDL:HDL Ratio 3.06 High <2.54 [facility] Comment on above: Result Comment: Alondrae poonam: 1. National Cholesterol Education Program ATP III Guideline At-A-Glance Quick Desk Reference: National Heart, Lung, and Blood [place]. National Institutes of Health. 2001: NIH Publication No. 01-3305. 2. An International Atherosclerosis Society position paper: global recommendations for the management of dyslipidemia: executive summary, Atherosclerosis. 2014: 232(2):410-413. Performed By: #### C MP, LIPB, TSH, AHCV1B, HIV12C, HBA1C ####[address] [phone] Non HDL Cholesterol 150 mg/dL High <130 [facility] Comment on above: Result Comment: <130 mg/dL, Optimal 130-159 mg/dL, Near optimal/above optimal 160-189 mg/dL, Borderline high 190-219 mg/dL, High >219 mg/dL, Very high Secondary prevention optimal non HDL Cholesterol levels are recommended to be < 100 mg/dL Performed By: #### C MP, LIPB, TSH, AHCV1B, HIV12C, HBA1C ####[place] [id number] [place], [place] [phone] TC:HDL Ratio 5.17 High <5.10 [facility] Comment on above: Performed By: #### C MP, LIPB, TSH, AHCV1B, HIV12C, HBA1C ####[place] [id number], [place] [phone] Triglyceride [Mass/Vol] 200 mg/dL High <150 [facility] Comment on above: Result Comment: <150 mg/dL, Normal 150-199 mg/dL, Borderline high 200-499 mg/dL, High >499 mg/dL, Very high Performed By: #### C MP, LIPB, TSH, AHCV1B, HIV12C, HBA1C ####[facility] [address] [place], [place] [phone] VLDL Cholesterol 40 mg/dL High <30 Clint ambrosio [facility] Comment on above: Performed By: #### C MP, LIPB, TSH, AHCV1B, HIV12C, HBA1C ####[facility] [address] [place], [place] [phone] TSHon 11-24-2020 TSH Qn 1.030 m[IU]/L Normal 0.270-4.200 [facility] Comment on above: Result Comment: If t he patient is , TSH reference range varies by gestational period: First Trimester (weeks 9-12): 0.180-2.990 mcIU/mL Second Trimester: 0.110-3.980 mcIU/mL Third Trimester: 0.480-4.710 mcIU/mL Brent Chavez et al. A Practical Approach for the Verifications and Determination of Site- and Trimester-Specific Reference Intervals for Thyroid Function tests in . Thyroid, 2019:29:3:412-420. Juan Carlos E, et al. 2017 Guidelines of the [place] Thyroid Association for the Diagnosis and Management of Thyroid Disease during and the . Thyroid, 2017:27:3:315-389. Performed By: #### C MP, LIPB, TSH, AHCV1B, HIV12C, HBA1C ####[facility] [address] [place], [place] [phone] CNOVon 11-17-2020 CNOV Office Visit (INMSOP ) LORI LUEVANO ([id number]) 1990 F [facility] Date Time Provider Department 11/17/20 2:40 PM SUNITHA LEMUS F INMSOP During your visit today, we recorded the following information about you: Pulse Blood pressure Weight Height 67/minute 116/80 127.3 kg 1.626 m Sunitha Lemus, DO 12/20/2020 11:32 AM Signed Subjective HPI Here as new patient. Having yeast infection and UTI. Has seen supervisor in charge at the beginning of this year - okay. Told HPV slightly elevated (?) Told pap normal. Started Monday Sexually active with one male partner without symptoms. Last UTI/yeast infection about a year ago - treated with diflucan, antibiotic for 7 days and better. This was the only infection. Was on metformin at age 16 - didn't tolerate - diarrhea, glucose was dropping to 40's. Weight stable for years. Last ate 3 hours ago - glucose now 114 MEDS: norethindrone PMH: Polycystic ovarian syndrome diagnosed at age 16 years (seeing [facility] physician then)_ . Periods not regular. LMP 06/14/2020. Has been on BCP's on the past; Stopped in April 2020. Not trying to get . Wants BCP's until sees gyne. One gave her bad migraines Anxiety - doing okay now; Not on medications at present time. Was on lexapro in the past which helped. PSH: Cholecystectomy 2016 without complications [place] teeth removed. Colonoscopy, EGD 2018 - good; Had had right mid-abdominal pain. No pain now. Now may have such pain once a month, pinching, burning pain that lasts a day or so; Not related to diet or period. CT scan done then. MEDS: Omeprazole 20 mg. Daily for reflux MVI daily Probiotic ALLERGIES: None known. SH: Never smoked. EtOH - once/week No drug use or HIV risks. FH: Mother living, 51 years old, well, hypertension. Father 57 years old, living/well. 3 younger sisters, living/well. Maternal grandmother with diabetes, ?uterine/ovarian cancer. No FH early CAD. Paternal grandmother with breast cancer. Paternal great-grandmother with ovarian cancer. Review of Systems Constitutional: Negative for chills and fever. Eyes: Negative for blurred vision. Respiratory: Negative for shortness of breath. Cardiovascular: Negative for chest pain and leg swelling. Gastrointestinal: Negative for abdominal pain. Genitourinary: Positive for dysuria. See HPI. Musculoskeletal: Negative for falls. Neurological: Negative for dizziness, focal weakness and headaches. Psychiatric/Behavioral: The patient is nervous/anxious. See HPI. Objective Physical Exam Constitutional: Comments: No distress. Eyes: Conjunctiva/sclera: Conjunctivae normal. Cardiovascular: Rate and Rhythm: Normal rate and regular rhythm. Heart sounds: Normal heart sounds. Pulmonary: Breath sounds: Normal breath sounds. Abdominal: Palpations: Abdomen is soft. Tenderness: There is no abdominal tenderness. Musculoskeletal: General: No tenderness. Skin: General: Skin is warm and dry. Neurological: Mental Status: She is alert and oriented to person, place, and time. LABS: Reviewed. Glucose 114. Urine dip with small leukocytes. ASSESSMENT/PLAN: 1. Polycystic ovarian syndrome - ICD9: 256.4, ICD10: E28.2 (primary diagnosis) To do labs; To see supervisor in charge - CBC + DIFF - COMP METABOLIC PANEL - HGB A1C - TSH BLD - GLUCOSE, BLOOD (POC) - CONSULT TO LOG MARKER - NORETHINDRONE (CONTRACEPTIVE) 0.35 MG TABLET 2. Encounter for hepatitis C screening test for low risk patient - ICD9: V73.89, ICD10: Z11.59 - HEP C AB IA W/CONF SCRN 3. Screening for HIV without presence of risk factors - ICD9: V73.89, ICD10: Z11.4 - HIV 1 2 COMBO(AG/AB),WITH REFLEX TO DIFFERENTIATION 4. BMI 45.0-49.9, adult (HCC) - ICD9: V85.42, ICD10: Z68.42 Encourage diet/exercise/weight loss - GLUCOSE, BLOOD (POC) 5. Monilia infection - ICD9: 112.9, ICD10: B37.9 To see supervisor in charge - GLUCOSE, BLOOD (POC) - FLUCONAZOLE 150 MG TABLET 6. Lipid screening - ICD9: V77.91, ICD10: Z13.220 - LIPID PANEL BASIC 7. Urinary tract infection without hematuria, site unspecified - ICD9: 599.0, ICD10: N39.0 - UA DIP B/O - GLUCOSE, BLOOD (POC) - URINE CULTURE - SULFAMETHOXAZOLE 800 MG-TRIMETHOPRIM 160 MG TABLET Sunitha Lemus DO Referring Provider: SELF [200] Allergies As of Date: 11/17/2020 (No Known Allergies) Date Reviewed: 11/17/2020 Reviewed by: Krystal Fall - Fully Assessed Reason for Visit: Establish Care [42] Cmt: c/o yeast infection Primary Visit Diagnosis:Polycystic ovarian syndrome [E28.2] Other Visit Diagnoses:Encounter for hepatitis C screening test for low risk patient [Z11.59] Screening for HIV without presence of risk factors [Z11.4] BMI 45.0-49.9, adult (HCC) [Z68.42] Monilia infection [B37.9] Lipid screening [Z13.220] Urinary tract infection without hematuria, site unspecified [N39.0] Order (more content not included)... Normal [facility] Urine Cultureon 11-17-2020 Bacteria identified Cx Nom (U) Sp. Request/Comment: - Specimen received in preservative Culture Result - 10,000 - <50,000 CFU/ml Streptococcus agalactiae (Group B streptococcus) --> ABNORMAL ALERT No further workup --> ABNORMAL ALERT <10,000 CFU/ml Normal urogenital natty Critically abnormal [facility] Comment on above: Performed By: #### U RCUL ####[facility] [address] [place], [place] [phone] CNNURSEon 07-09-2020 CNNURSE Nurse Visit (MARY ALICE) LORI LUEVANO ([id number]) 1990 F [facility] Date Time Provider Department 07/09/20 [place] During your visit today, we recorded the following information about you: Allergies As of Date: 07/09/2020 (No Known Allergies) Date Reviewed: 02/05/2015 Reviewed by: Angel Barrett CNP - Fully Assessed Order(s):Personera SARS-COV-2 VACCINE 2D DOSE APPT [[id number]] Order #: [id number] Prescriptions as of 07/09/2020 Sig: METHYLPREDNISOLONE 4 MG TABLE* Take as directed on package GUAIFENESIN ER 600 MG TABLET,* Take 2 tablets by mouth twice* FLUTICASONE PROPIONATE 50 MCG* Use 1 [place] in each nostril o* Problem List As Of Date: 07/09/2020 (None) Encounter Status:Open [facility] Surgical Pathologyon 017 Surgical Pathology [id number] [facility] MEDICINE [address] [place] [phone] Fax - FINAL SURGICAL PATHOLOGY REPORT NAME: LORI LUEVANO N [id number].O.B.: 1990 26 Y F BILLING NO.: [id number]: BSDSO [id number] PROCEDURE 03/30/2017 DATE:SURGEON: MANUEL IQBAL MD RECEIVED 03/30/2017 DATE:ATTENDING: MANUEL IQBAL MD REPORT DATE: 03/31/2017 COPIES TO: DIAGNOSIS:CHOLECY STECTOMY - MILD CHRONIC CHOLECYSTITIS, CHOLESTEROLOSIS, ANDCHOLELITHIASIS.CYSTI C DUCT LYMPH NODE WITH FOLLICULAR HYPERPLASIA AND REACTIVECHANGES.AHD/0RW SHARONDA JJ M.D. CLINICAL INFORMATION: Biliary colicSPECIMEN: GALLBLADDER GROSS DESCRIPTION:Galltoiaddtana rReceived in formalin is a previously partially opened gallbladdermeasuring 8.5 x 2.5 x 1.5 cm. The serosal surface is pink to stewart-garcia. Adjacent to the cystic duct is a pink-garcia nodule consistent with lymphnode, 0.6 x 0.4 cm. Upon further opening the gallbladder, it containsa small amount of thick green bile which contains multiple clearyellowish-green calculi which aggregate to approximately 4 x 4 cm. Themucosa of the gallbladder is pink-garcia to yellow-green and bile stainedwith yellow streaks. The wall of the gallbladder averagesapproximately 0.2 cm in thickness and contains no nodules. No calculiare seen within the cystic duct. Structural Engineering Drafting Officer sections are submittedin a single cassette including the entire lymph node identifiedadjacent to the cystic duct. (bits ss, 1) JCK/ARJDisclaimer: The following statement applies to allimmunohistochemistry , in situ hybridization, molecular studies, andimmunofluorescence testing.The use of one or more reagents in the above tests is regulated as ananalyte specific reagent (ASR). These tests were developed and theirperformance characteristics determined by the clinical laboratories [facility]. They have not been cleared by the US Food and DrugAdministration (FDA). The FDA has determined that such clearance orapproval is not necessary.All the above immunostains were performed on paraffin embedded tissue.Appropriate positive and negative controls (where applicable) were runin parallel with the patient's specimen; these controls showed expectedstaining pattern, with acceptable intensity of staining.Immunohistoche mical assays have not been validated on decalcifiedtissues. Results should be interpreted with caution given the raisedpossibility of false negativity on decalcified specimens.Case reviewed at [place] [address] [facility] [id number]. DEPARTMENT OF PATHOLOGY AND LABORATORY MEDICINE [place], [place] [address] [facility] Comment on above: Performed By: #### S UR ####Performing Lab is in report US Abdomen Completeon 2016 US Abdomen Complete Patient Name: LORI LUEVANO Ultrasound Exam Date/Time 02/09/2017 09:45:47 EDT Exam US Abdomen Complete Ordering Physician DO ROSALES BRINKMAN Accession Number [id number] CPT4 Codes 57423 () Reason For Exam ABDOMINAL PAIN Report Ultrasound abdomen HISTORY: Abdominal pain Fatty infiltration of the liver. Cholelithiasis. No gallbladder wall thickening. The common bile duct has a normal diameter of 4 mm. The pancreas is normal. Right kidney measures 11.4 x 5.5 x 4.8 cm. Left kidney measures 11.5 x 5.9 x 5.3 cm. The kidneys are normal. The spleen measures 12.1 x 8.9 x 6.5 cm. The spleen is normal. The aorta/IVC are not well seen. IMPRESSION: Fatty infiltration of the liver. Cholelithiasis. Report Dictated on Final Dictating Physician: MD PHILLIP MALAY Signed Date and Time: 02/09/2017 10:12 am Signed by: MD PHILLIP MALAY Transcribed Date and Time: 02/09/2017 10:13 [facility] Vital Signs Date Time Vital Sign Value Performing Clinician Marylu davidson 10-10-2024 17:21-0400 Body height 162.[address] Ivania Gray MD Work Phone: [facility] 10-10-2024 17:21-0400 Body mass index (BMI) [Ratio] 45.5 kg/m2 Dr. Ivania Gray MD Work Phone: [facility] 10-10-2024 17:21-0400 Body temperature 97.9 [degF] Dr. Ivania Gray MD Work Phone: [facility] 10-10-2024 17:21-0400 Body weight 120.[address] Ivania Gray MD Work Phone: [facility] 10-10-2024 17:21-0400 Diastolic blood pressure 78 mm[Hg] Dr. Ivania Gray MD Work Phone: [facility] 10-10-2024 17:21-0400 Heart rate 83 /min Dr. Ivania Gray MD Work Phone: [facility] 10-10-2024 17:21-0400 Respiratory rate 16 /min Dr. Ivania Gray MD Work Phone: [facility] 10-10-2024 17:21-0400 SaO2% (BldA) [Mass fraction] 97 % Dr. Ivania Gray MD Work Phone: [facility] 10-10-2024 17:21-0400 Systolic blood pressure 132 mm[Hg] Dr. Ivania Gray MD Work Phone: [facility] 08-23-2023 14:35-0400 Body mass index (BMI) [Ratio] 41.2 kg/m2 Glory Harwood PA Work Phone: [facility] [employer] 08-23-2023 14:35-0400 Body weight 108.86 kg Glory Harwood PA Work Phone: [facility] 08-23-2023 14:35-0400 Diastolic blood pressure 80 mm[Hg] Glory Harwood PA Work Phone: [facility] [employer] 08-23-2023 14:35-0400 Heart rate 88 /min Glory Harwood PA Work Phone: [facility] [employer] 08-23-2023 14:35-0400 Systolic blood pressure 128 mm[Hg] Glory Harwood PA Work Phone: [facility] [employer] 08-18-2023 08:41-0400 Body height 162.[address] Ivania Gray Work Phone: [facility] 08-18-2023 08:41-0400 Body mass index (BMI) [Ratio] 41 kg/m2 Dr. Ivania Gray Work Phone: [facility] 08-18-2023 08:41-0400 Body temperature 97.6 [degF] Dr. Ivania Gray Work Phone: [facility] 08-18-2023 08:41-0400 Body weight 108.[address] Ivania Gray Work Phone: [facility] 08-18-2023 08:41-0400 Diastolic blood pressure 78 mm[Hg] Dr. Ivania Gray Work Phone: [facility] 08-18-2023 08:41-0400 Heart rate 109 /min Dr. Ivania Gray Work Phone: [facility] 08-18-2023 08:41-0400 Respiratory rate 16 /min Dr. Ivania Gray Work Phone: [facility] 08-18-2023 08:41-0400 SaO2% (BldA) [Mass fraction] 98 % Dr. Ivania Gray Work Phone: [facility] 08-18-2023 08:41-0400 Systolic blood pressure 120 mm[Hg] Dr. Ivania Gray Work Phone: [facility] 07-25-2023 09:50-0400 Body mass index (BMI) [Ratio] 42.05 kg/m2 Nikki Nance MD Work Phone: [facility] 07-25-2023 09:50-0400 Body weight 111.13 kg Nikki Nance MD Work Phone: [facility] 07-25-2023 09:50-0400 Diastolic blood pressure 84 mm[Hg] Nikki Nance MD Work Phone: [facility] 07-25-2023 09:50-0400 Heart rate 96 /min Nikki Nance MD Work Phone: [facility] 07-25-2023 09:50-0400 Systolic blood pressure 128 mm[Hg] Nikki Nance MD Work Phone: [facility] 04-04-2023 15:45-0500 Body height 162.6 cm Nikki Nance MD Work Phone: [facility] 04-04-2023 15:45-0500 Body mass index (BMI) [Ratio] 43.94 kg/m2 Nikki Nance MD Work Phone: [facility] 04-04-2023 15:45-0500 Body weight 116.12 kg Nikki Nance MD Work Phone: [facility] 04-04-2023 15:45-0500 Diastolic blood pressure 88 mm[Hg] Nikki Nance MD Work Phone: [facility] 04-04-2023 15:45-0500 Heart rate 82 /min Nikki Nance MD Work Phone: [facility] 04-04-2023 15:45-0500 Systolic blood pressure 147 mm[Hg] Nikki Nance MD Work Phone: [facility] 02-08-2023 08:09-0400 Body weight 118.84 kg Nikki Nance MD Work Phone: [facility] 02-08-2023 08:09-0400 Diastolic blood pressure 75 mm[Hg] Nikki Nance MD Work Phone: [facility] 02-08-2023 08:09-0400 Heart rate 56 /min Nikki Nance MD Work Phone: [facility] 02-08-2023 08:09-0400 Systolic blood pressure 113 mm[Hg] Nikki Nance MD Work Phone: [facility] [employer] 02-06-2023 11:58-0400 Body weight 117.94 kg Nikki Nance MD Work Phone: [facility] 02-06-2023 11:58-0400 Diastolic blood pressure 83 mm[Hg] Nikki Nance MD Work Phone: [facility] 02-06-2023 11:58-0400 Heart rate 75 /min Nikki Nance MD Work Phone: [facility] 02-06-2023 11:58-0400 Systolic blood pressure 126 mm[Hg] Nikki Nance MD Work Phone: [facility] 01-05-2023 16:56-0400 Body height 162.[address] Ivania Gray Work Phone: [facility] 01-05-2023 16:56-0400 Body mass index (BMI) [Ratio] 44.8 kg/m2 Dr. Ivania Gray Work Phone: [facility] 01-05-2023 16:56-0400 Body temperature 98.9 [degF] Dr. Ivania Gray Work Phone: [facility] 01-05-2023 16:56-0400 Body weight 118.[address] Ivania Gray Work Phone: [facility] 01-05-2023 16:56-0400 Diastolic blood pressure 86 mm[Hg] Dr. Ivania Gray Work Phone: [facility] 01-05-2023 16:56-0400 Heart rate 78 /min Dr. Ivania Gray Work Phone: [facility] 01-05-2023 16:56-0400 Respiratory rate 18 /min Dr. Ivania Gray Work Phone: [facility] 01-05-2023 16:56-0400 SaO2% (BldA) [Mass fraction] 98 % Dr. Ivania Gray Work Phone: [facility] 01-05-2023 16:56-0400 Systolic blood pressure 122 mm[Hg] Dr. Ivania Gray Work Phone: [facility] Encounters Encounter Date Encounter Type Care Provider Facility Start: 10-10-2024 Encounter for genera l adult medical examination without abnormal findings [facility] Start: 10-10-2024 End: 10-10-[address] Ivania Gray [facility] Work Phone: Start: 10-10-2024 End: 10-10-[address] Ivania Gray MD Work Phone: [facility] Work Phone: Start: 07-19-2024 End: 07-19-2024 Telephone encounter Nikki Barbour MD Work Phone: [facility] Comment on above: Appointment Request (Due for annual exam) Start: 12-15-2023 End: 12-15-2023 ambulatory Gunnar MANLEY Facility:[facility] Start: 08-23-2023 End: 08-23-2023 Office outpatient visit 15 minutes Glory MANLEY Work Phone: [facility] Comment on above: Vaginal discharge (P rimary Dx); UTI symptoms; Screen for STD (sexually transmitted disease) Start: 08-18-2023 End: 08-18-[address] Ivania Gray Work Phone: [facility] Work Phone: Start: 08-18-2023 End: 08-18-[address] Ivania Gray Work Phone: [facility] Work Phone: Start: 08-18-2023 End: 08-18-[address] Ivania Gray Work Phone: [facility] Work Phone: Start: 08-02-2023 End: 08-02-2023 Office outpatient visit 10 minutes Nikki Barbour MD Work Phone: [facility] Comment on above: HPV (human papilloma virus) anogenital infection (Primary Dx); LGSIL on Pap smear of cervix Start: 07-25-2023 End: 07-25-2023 Patient encounter procedure Nikki Barbour MD Work Phone: [facility] Comment on above: LGSIL on Pap smear o f cervix (Primary Dx); HPV (human papilloma virus) anogenital infection Start: 04-12-2023 Telephone encounter Nikki rees MD Work Phone: [facility] Comment on above: Abnormal Pap Smear ( Colposcopy recommended ) Start: 04-04-2023 End: 04-04-2023 Patient encounter status Nikki Barbour MD Work Phone: [facility] [employer] Work Phone: Start: 04-04-2023 End: 04-04-2023 Periodic preventive med est patient 18-39 yrs Nikki Barbour MD Work Phone: [facility] Comment on above: Encounter for gyneco logical examination without abnormal finding (Primary Dx) Start: 02-09-2023 Telephone encounter Jennifer HARRIS [facility] Clinical Communication Start: 02-08-2023 End: 02-08-2023 Postop follow up visit related to original px Nikki Barbour MD Work Phone: [facility] Comment on above: Vaginal discharge (P rimary Dx); Exposure to STD Start: 02-06-2023 ambulatory Bill Yao LPN [facility] Clinical Communication Start: 02-06-2023 Patient encounter procedure Bill Hager Clinical Communication Start: 02-06-2023 End: 02-06-2023 Office outpatient new 45 minutes Nikki Barbour MD Work Phone: [facility] Comment on above: Vulvar lesion (Prima ry Dx); Exposure to STD; Vaginal discharge Start: 01-11-2023 End: 01-11-[address] Ivania Gray Work Phone: [facility] Work Phone: Start: 01-11-2023 End: 01-11-[address] Ivania Gray Work Phone: [facility] Start: 01-05-[address] Tana Gray Work Phone: [facility] Start: 01-05-2023 End: 01-05-2023 Encounter for general adult medical examination without abnormal findings Dr. Ivania Gray Work Phone: [facility] Start: 01-05-2023 End: 01-05-[address] Ivania Gray Work Phone: [facility] Work Phone: Start: 03-30-2017 Ambulatory [facility] Start: 02-09-[address] [facility] Procedures Date Procedure Procedure Detail Performing Clinician Start: 08-23-2023 Urnls dip stick/tabl et rgnt non-auto w/o micrscp Glory MANLEY Work Phone: Start: 08-18-[address] Owen Gray Work Phone: Start: 07-25-2023 Urine test visual color cmprsn meths Nikki Barbour MD Work Phone: Start: 04-04-2023 Microscopic observat ion [Identifier] in Cervix by Cyto stain Nikki Nance MD Work Phone: Plan of Treatment Date Care Activity Detail Author Start: 2065 RSV Immunization for Adults (1 - 1-dose 75+ series) RSV Immunization for Adults (1 - 1-dose 75+ series) [facility] Start: 2050 RSV Immunization age d 60 or older (1 - 1-dose 60+ series) RSV Immunization aged 60 or older (1 - 1-dose 60+ series) [facility] Start: 2040 Zoster Vaccines (1 o f 2) Zoster Vaccines (1 of 2) [facility] Start: 04-04-2028 Screening for malign ant neoplasm of cervix [facility] Start: 04-04-2026 Screening for malign ant neoplasm of cervix Pap Smear [facility] Start: 12-23-2024 Influenza vaccination Influenz a Vaccine (Season Ended) [facility] Start: 10-10-[address] [facility] Work Phone: Start: 04-10-2024 End: 04-10-2024 Patient encounter procedure 04/10/2024 8:15 AM EST Office Visit [facility] [address] [place] [address] Nikki Barbour MD [address] [place] [address], [address] [place] [address] [facility] Start: 02-23-2024 DTaP/Tdap/Td Vaccine s (7 - Td or Tdap) DTaP/Tdap/Td Vaccines (7 - Td or Tdap) [facility] Start: 12-24-2023 COVID-19 Vaccine ( season) COVID-19 Vaccine ( season) [facility] Start: 12-24-2023 Influenza vaccination Influenz a Vaccine (Season Ended) [facility] Start: 08-02-2023 End: 08-02-2023 Telemedicine consultation with patient 08/02/2023 4:00 PM EDT Telemedicine [facility] [address] [place] [address] Nikki Barbour MD [address] [place] [address], [address] [place] [address] [facility] Start: 05-16-2023 End: 05-16-2023 Patient encounter procedure [facility] Start: 02-21-2023 End: 02-21-2023 Patient encounter procedure 02/21/2023 11:30 AM EDT Office Visit [facility] [address] [place] [address] Nikki Barbour MD [address], [address] [place] [address] [facility] Start: 02-20-2023 End: 02-20-2023 Patient encounter procedure 02/20/2023 3:00 PM EDT Office Visit [facility] [address] [place] [address] Nikki Barbour MD [address], [address] [place] [address] [facility] Start: 02-06-2023 End: 02-07-2024 Hepatitis B virus surface Ag [Presence] in Serum or Plasma by Immunoassay Hepatitis B surface antigen Lab Routine Exposure to STD Expected: 02/06/2023 (Approximate), Expires: 02/07/2024 [facility] Comment on above: Expected: 02/06/2023 (Approximate), Expires: 02/07/2024 Start: 02-06-2023 End: 02-07-2024 Hepatitis C virus Ab [Presence] in Serum or Plasma by Immunoassay Hepatitis C antibody Lab Routine Exposure to STD Expected: 02/06/2023 (Approximate), Expires: 02/07/2024 [facility] [employer] Comment on above: Expected: 02/06/2023 (Approximate), Expires: 02/07/2024 Start: 02-06-2023 End: 02-07-2024 HIV 1+2 Ab+HIV1 p24 Ag [Presence] in Serum or Plasma by Immunoassay HIV-1 and HIV-2 Antigen-Antibody Screen Lab Routine Exposure to STD Expected: 02/06/2023 (Approximate), Expires: 02/07/2024 [facility] [employer] Comment on above: Expected: 02/06/2023 (Approximate), Expires: 02/07/2024 Start: 02-06-2023 End: 02-07-2024 Reagin Ab [Presence] in Serum by RPR RPR Lab Routine Exposure to STD Expected: 02/06/2023 (Approximate), Expires: 02/07/2024 [facility] Comment on above: Expected: 02/06/2023 (Approximate), Expires: 02/07/2024 Start: 12-23-2022 COVID-19 Vaccine () COVID-19 Vaccine () [facility] Start: 12-23-2022 Influenza vaccination Influenza Vacc ine (#1) [facility] Start: 11-24-2021 Diabetes mellitus screening Diabetes Screening [facility] Start: 07-10-2021 COVID-19 Vaccine (3 - Pfizer series) COVID-19 Vaccine (3 - Pfizer series) [facility] Start: 07-06-2021 HPV Vaccines (3 - 3-dose SCDM series) HPV Vaccines (3 - 3-dose SCDM series) [facility] Start: 07-05-2021 HPV Vaccines (3 - 3-dose SCDM series) HPV Vaccines (3 - 3-dose SCDM series) [facility] Start: 2020 Screening for malign ant neoplasm of cervix [facility] Start: 09-26-2011 Screening for malign ant neoplasm of cervix Pap Smear [facility] Start: 2008 Hepatitis C screening Hepatitis C Sc reening [facility] Start: 2002 Depression Screening Depression Scre ening [facility] Start: 1996 Pneumococcal Vaccine : Pediatrics (0 to 5 Years) and At-Risk Patients (6 to 64 Years) (1 - PCV) Pneumococcal Vaccine: Pediatrics (0 to 5 Years) and At-Risk Patients (6 to 64 Years) (1 - PCV) [facility] Start: 1996 Pneumococcal Vaccine : Pediatrics (0 to 5 Years) and At-Risk Patients (6 to 64 Years) (1 of 2 - PCV) Pneumococcal Vaccine: Pediatrics (0 to 5 Years) and At-Risk Patients (6 to 64 Years) (1 of 2 - PCV) [facility] Start: 1994 IPV Vaccines (4 of 4 - 4-dose series) IPV Vaccines (4 of 4 - 4-dose series) [facility] Start: 1990 HIV screening HIV Screening [facility] Start: 1990 Lipid panel Lipid Panel [facility] Bacteria identified in Urine by Culture Urine culture Microbiology Routine UTI symptoms Ordered: 08/23/2023 [facility] Comment on above: Ordered: 08/23/2023 CBC W Auto Different ial panel - Blood [facility] Comprehensive metabo lic 2000 panel - Serum or Plasma [facility] Cytology Cervical or vaginal smear or scraping study Pap Smear Pathology and Cytology Routine Encounter for gynecological examination without abnormal finding Ordered: 04/04/2023 [facility] [employer] Work Phone: Comment on above: Ordered: 04/04/2023 Hemoglobin A1c/Hemoglobin.total in Blood [facility] Herpes simplex virus 1 and 2 DNA panel - Unspecified specimen Qualitative by DILAN with probe detection Herpes Simplex Virus 1,2 by PCR Microbiology Routine Vulvar lesion Exposure to STD Ordered: 02/06/2023 [facility] Comment on above: Ordered: 02/06/2023 Lipid 1996 panel - Serum or Plasma [facility] Patient referral [facility] Work Phone: SURESWAB(R) ADVANCED VAGINITIS PLUS, TMA ([facility]) Sureswab(R) Advanced Vaginitis Plus, TMA ([facility]) Lab Routine Exposure to STD Vaginal discharge Ordered: 02/06/2023 [facility] [employer] Work Phone: Comment on above: Ordered: 02/06/2023 SURESWAB(R) ADVANCED VAGINITIS PLUS, TMA ([facility]) Sureswab(R) Advanced Vaginitis Plus, TMA ([facility]) Lab Routine Vaginal discharge Exposure to STD [facility] Work Phone: Comment on above: Ordered: 02/08/2023 SURESWAB(R) ADVANCED VAGINITIS PLUS, TMA ([facility]) Sureswab(R) Advanced Vaginitis Plus, TMA ([facility]) Lab Routine Vaginal discharge Screen for STD (sexually transmitted disease) Ordered: 08/23/2023 [facility] [employer] Work Phone: Comment on above: Ordered: 08/23/2023 T4 free measurement [facility] Thyroid stimulating hormone measurement [facility] Tissue exam Tissue exam Path ology and Cytology Routine LGSIL on Pap smear of cervix HPV (human papilloma virus) anogenital infection Ordered: 07/25/2023 [facility] Work Phone: Comment on above: Ordered: 07/25/2023 US Thyroid gland [facility] Immunizations Immunization Date Immunization Notes Care Provider Ganesh whelan 03-08-2021 HPV, unspecified formulation Bill Yao [facility] 01-27-2021 influenza virus vacc ine, unspecified formulation Bill Yao [facility] 02-12-1992 poliovirus vaccine, unspecified formulation Nikki Nance MD Work Phone: [facility] Payers Date Payer Category Payer Private Health Insurance [id number] 2023 Self-pay [id number] 2022 Commercial Managed are - O MMO SUPERMED Member Subscriber Plan / Payer (Effective 2022-Present) Name: Lori Luevano Relation to Subscriber: Self Name: Lori Luevano Payer ID: Not on file Type: Commercial Address: [place] [address] [id number] 2022 Unknown [facility] [id number] 2022-Present [place] [id number] Commercial [id number] Private Health Insurance Private Health Insurance [employer] [id number] Unknown [facility] [id number] Unknown [id number] Unknown [id number] Social History Date Type Detail Facility Start: 01-05-2023 [facility] Start: 06-28-2019 Non-smoker [facility] Start: 1990 Sex Assigned At Female [facility] Start: 02-06-2023 [facility] daily [facility] History of tobacco use Cigarette Smoker [facility] Start: 02-06-2023 Tobacco use and exposure Smokeless tobacco non-user [facility] Start: 02-06-2023 End: 08-23-2023 Alcohol intake Current non-drinker of alcohol (finding) [facility] Start: 02-06-2023 End: 08-23-2023 Alcohol intake [facility] Start: 02-06-2023 End: 08-23-2023 Tobacco use panel [facility] Start: 1990 Sex Assigned At Not on file [facility] Start: 07-25-2023 [facility] History of tobacco use Current smoker [facility] Start: 07-25-2023 Tobacco use and exposure User of smokeless tobacco [facility] Start: 07-25-2023 Tobacco Comment vape [facility] Start: 11-22-2021 Sex Female (finding) [facility] Start: 01-05-2023 [facility] Never [facility] (finding[facility] Clinical Notes 06-01-2020 to 08-30-2024 Telephone Encounter - Isha Cheung LPN - 08/30/2024 2:58 PM EDTTelephone Encounter - Isha Cheung LPN - 08/30/2024 2:58 PM EDTTelephone Encounter - Isha Cheung LPN - 07/19/2024 2:02 PM EDT Note Date & Type Note Facility 08-30-2024 Telephone encounter Note Attempted to call calling restrictions [facility] 08-30-2024 Miscellaneous Notes Attempted to call calling restrictions Attempted to call pt VM has not been set up yet ----- Message from Isha S sent at 06/06/2024 3:19 PM EST ----- Regarding: appt Annual rescheduled? documented in this encounter [facility] 07-19-2024 Telephone encounter Note Attempted to call pt VM has not been set up yet [facility] 07-19-2024 Telephone encounter Note ----- Message from Isha S sent at 06/06/2024 3:19 PM EST ----- Regarding: appt Annual rescheduled? [facility] 08-23-2023 History of Presen t illness Narrative Images from the original note were not included. Lori Luevano 08/23/2023 32 y.o. Chief Complaint Patient presents with Vaginal Discharge Patient's last menstrual period was 06/27/2023 (exact date). HPI: Loir Luevano is a 32 y.o. female presents for vaginal discharge. Started today. Previously treated for a UTI with Cephalexib, today was the last day. Did try 3 day Monistat to help with symptoms. Also tried AZO for relief. Discharge is clear with a moderate consistency. Having vaginal itching. Denies other vaginal symptoms. Reports dysuria, urinary frequency, and urinating small amounts. Denies other urinary symptoms. Would like tested for STDs for peace of mind. States this feel similar to previous UTIs and yeast infections. OB History Para Term AB Living 0 0 0 0 0 0 SAB IAB Ectopic Multiple Live Births 0 0 0 0 0 Past Medical History: Diagnosis Date control NONE, NSA BMI 45.0-49.9, adult (HCC) Depression Insulin resistance PCOS (polycystic ovarian syndrome) stopped metformin Past Surgical History: Procedure Laterality Date CHOLECYSTECTOMY 03/30/2017 COLPOSCOPY 07/25/2023 WISDOM TOOTH EXTRACTION Family History Problem Relation Name Age of Onset Breast cancer Paternal Grandmother Great 30 Ovarian cancer Paternal Grandmother Great 70 70-80 Diabetes Maternal Grandmother 50 Social History Tobacco Use Smoking status: Former Types: Cigarettes Smokeless tobacco: Current Tobacco comments: vape Vaping Use Vaping Use: Never used Substance Use Topics Alcohol use: No Alcohol/week: 0.0 standard drinks of alcohol Drug use: No MEDICATIONS: Current Outpatient Medications Medication Sig Dispense Refill ciprofloxacin (Cipro) 250 MG tablet Take 1 tablet (250 mg) by mouth 2 times daily for 3 days. 6 tablet 0 fluconazole (Diflucan) 150 MG tablet Take 1 tablet (150 mg) by mouth Every 3 days for 2 doses. Take one 150mg tablet the first day then take the second 150mg tablet 3 days later. 2 tablet 1 lidocaine (Xylocaine) 5 % ointment Apply topically 3 times daily. 30 g 1 Magnesium Citrate 100 MG capsule omeprazole (PriLOSEC) [address] capsule Take 40 mg by mouth daily. No current facility-administered medications for this visit. ALLERGIES: Allergies as of 08/23/2023 (No Known Allergies) Review of Systems: Review of Systems Constitutional: Negative for chills and fever. Gastrointestinal: Negative for abdominal pain, nausea and vomiting. Genitourinary: Positive for decreased urine volume, dysuria, frequency and vaginal discharge. Negative for difficulty urinating, flank pain, genital sores, hematuria, menstrual problem, pelvic pain, urgency, vaginal bleeding and vaginal pain. Skin: Negative for color change and rash. All other systems reviewed and are negative. Physical Exam: BP 128/80 (BP Location: Left arm, Patient Position: Sitting, BP Cuff Size: Large adult) Pulse 88 Wt 240 lb (109 kg) LMP 06/27/2023 (Exact Date) BMI 41.20 kg/m Physical Exam Vitals reviewed. Tile Sorter present: Declined product distribution specialist. Constitutional: General: She is not in acute distress. Appearance: Normal appearance. She is not ill-appearing or toxic-appearing. HENT: Head: Normocephalic and atraumatic. Pulmonary: Effort: Pulmonary effort is normal. No respiratory distress. Genitourinary: General: Normal vulva. Vagina: Vaginal discharge (white, thin) present. Cervix: Normal. Neurological: Mental Status: She is alert. Mental status is at baseline. Psychiatric: Mood and Affect: Mood normal. Behavior: Behavior normal. Judgment: Judgment normal. ASSESSMENT& PLAN: UTI symptoms - Urinalysis done in office today, positive for leukocytes. - Urine culture ordered. - Prescription for Cipro sent to pharmacy. - Will notify patient of results and update treatment as necessary. Voiced understanding and is appreciative. Vaginal discharge - Vaginal swab ordered. Suspect yeast infection given history and symptoms. - Prescription for Diflucan with refill sent to pharmacy. - Will notify patient of results and update treatment as necessary. Voiced understanding and is appreciative. SINDHU Davey documented in this encounter [facility] 08-23-2023 Evaluation + Plan note Associated Problem(s): Vaginal discharge - Vaginal swab ordered. Suspect yeast infection given history and symptoms. - Prescription for Diflucan with refill sent to pharmacy. - Will notify patient of results and update treatment as necessary. Voiced understanding and is appreciative. [facility] 08-23-2023 Miscellaneous Notes Associated Problem(s): Vaginal discharge - Vaginal swab ordered. Suspect yeast infection given history and symptoms. - Prescription for Diflucan with refill sent to pharmacy. - Will notify patient of results and update treatment as necessary. Voiced understanding and is appreciative. Associated Problem(s): UTI symptoms - Urinalysis done in office today, positive for leukocytes. - Urine culture ordered. - Prescription for Cipro sent to pharmacy. - Will notify patient of results and update treatment as necessary. Voiced understanding and is appreciative. documented in this encounter [facility] 08-23-2023 Evaluation + Plan note Associated Problem(s): UTI symptoms - Urinalysis done in office today, positive for leukocytes. - Urine culture ordered. - Prescription for Cipro sent to pharmacy. - Will notify patient of results and update treatment as necessary. Voiced understanding and is appreciative. [facility] 08-02-2023 History of Presen t illness Narrative No chief complaint on file. Patient's last menstrual period was 06/27/2023 (exact date). History: Past Medical History: Diagnosis Date control NONE, NSA BMI 45.0-49.9, adult (HCC) Depression Insulin resistance PCOS (polycystic ovarian syndrome) stopped metformin Past Surgical History: Procedure Laterality Date CHOLECYSTECTOMY 03/30/2017 COLPOSCOPY 07/25/2023 WISDOM TOOTH EXTRACTION Family History Problem Relation Name Age of Onset Breast cancer Paternal Grandmother Great 30 Ovarian cancer Paternal Grandmother Great 70 70-80 Diabetes Maternal Grandmother 50 Social History Tobacco Use Smoking status: Former Types: Cigarettes Smokeless tobacco: Current Tobacco comments: vape Vaping Use Vaping Use: Never used Substance Use Topics Alcohol use: No Alcohol/week: 0.0 standard drinks of alcohol Drug use: No Allergies: No Known Allergies Medications: Current Outpatient Medications on File Prior to Visit Medication Sig Dispense Refill lidocaine (Xylocaine) 5 % ointment Apply topically 3 times daily. 30 g 1 Magnesium Citrate 100 MG capsule omeprazole (PriLOSEC) [address] capsule Take 40 mg by mouth daily. No current facility-administered medications on file prior to visit. HPI: Patient was identified and seen today via Telehealth by agreement and consent. I used the following Telehealth technology: Audio capability only. Total length of call 10 minutes. The patient was offered and advised video for a more comprehensive evaluation, but the patient declined or was unable to use video. Patient location: Patient Location: Home. This patient encounter is appropriate and reasonable under the circumstances: transportation issues . The patient has been advised of the potential risks and limitations of this mode of treatment (including but not limited to the absence of in-person examination) and has agreed to be treated in a remote fashion in spite of them. Any and all of the patient's/patient's family's questions on this issue have been answered and I have made no promises or guarantees to the patient. The patient has also been advised to contact this office for worsening conditions or problems, and seek emergency medical treatment and/or call 911 if the patient deems either necessary. The patient stated that they are currently in the [facility]. If the patient is a minor, permission has been obtained by the parent or guardian for the patient to receive medical care at this visit. Pt had a pap that was lgsil positive hr hpv Pap Smear LAB AP RATOPRINTER SPECIMEN ADEQUACY: The specimen is satisfactory for examination. Endocervical/transformation component present. LAB AP RATOPRINTER INTERPRETATION: LOW GRADE SQUAMOUS INTRAEPITHELIAL LESION (MILD DYSPLASIA AND HPV CHANGES). Abnormal Positive hr hpv and Procedures Follow-ups 04/04/2023 HPV High Risk PCR HUMAN PAPILLOMA VIRUS 18 DNA (PRESENCE): Not Detected HUMAN PAPILLOMA VIRUS 16 DNA (PRESENCE): Not Detected HUMAN PAPILLOMA VIRUS OTHERS DNA (PRESENCE): Detected Abnormal Final Diagnosis A. CERVIX, BIOPSY: - ECTOCERVICAL BIOPSY WITH NO SIGNIFICANT PATHOLOGIC CHANGES B. ENDOCERVICAL CURETTAGE: - ENDOCERVICAL AND ECTOCERVICAL EPITHELIUM WITH NO SIGNIFICANT PATHOLOGIC CHANGES at 0959 Clinical Information LGSIL on Pap smear of cervix, HPV anogenital infection Discussed results normal , pap in year ROS: Review of Systems Genitourinary: Negative for menstrual problem, pelvic pain, vaginal bleeding and vaginal discharge. exam: LMP 06/27/2023 (Exact Date) Physical Exam Assessment and Plan: Diagnoses and all orders for this visit: HPV (human papilloma virus) anogenital infection (Primary) LGSIL on Pap smear of cervix Discussed bx negative , pap in 1 year she will get gardasil No follow-ups on file. documented in this encounter [facility] [employer] [facility] 07-25-2023 History of Presen t illness Narrative A product distribution specialist was offered to be present during her exam. The patient: declined Colposcopy for PAP: lgsil positive hrhpv Pre-Colposcopy consent signed. Possible risks explained to patient who states she understands. Procedure: A speculum was placed into the vagina and the cervix was easily visualized. Acetic acid was applied to the cervix. The entire squamocolumnar junction was seen. A biopsy was taken at the 11,6O'clock position. An endocervical curettage was done. Monsels paste was applied applied. Hemostasis confirmed. Satisfactory: yes Gross observations: AWE: 11,6, Mosaicism: no, Punctation no, Atypical Vessels: No. Assessment: Diagnosis Plan 1. LGSIL on Pap smear of cervix Tissue exam 2. HPV (human papilloma virus) anogenital infection Tissue exam Plan: The patient was given formal restriction guidelines. She was instructed to report any increase in vaginal bleeding, discharge, or any temperature more than 100.4 F. Strict pelvic rest precautions were reviewed with lifting restrictions. F/U in 1mo. documented in this encounter [facility] 07-25-2023 Miscellaneous Notes Addended by: ARASH WILLIAMSON on: 07/25/2023 11:56 AM Modules accepted: Orders documented in this encounter [facility] 07-25-2023 Note Addended by: ARASH WILLIAMSON on: 07/25/2023 11:56 AM Modules accepted: Orders [facility] 07-25-2023 Note Addended by: ARASH WILLIAMSON on: 07/25/2023 11:56 AM Modules accepted: Orders [facility] 04-12-2023 Telephone encounter Note Patient returned call and scheduled appointment [facility] 04-12-2023 Miscellaneous Notes Patient returned call and scheduled appointment If patient calls clinical access, please review and assist patient with scheduling colposcopy. Dr will discuss results in detail at appointment. 15 minutes in office procedure with doctor and 30 minutes in procedure room at [facility]. When appointment is available. Preferably after a cycle. Colposcopy, diagnostic look at the cervix using a type of lighted microscope. A small tissue sample may be taken to determine if there are abnormal cells developing or progressing into the cervical tissue or endocervix. Follow up will depend on colposcopy results. As long as no contraindications, can take tylenol or Ibuprofen with food 2 hours prior. A urine test may be done at this appointment. Thank you ----- Message from Nikki Nance MD sent at 04/12/2023 2:22 PM EST ----- Lgsil positive hr hpv needs colpo documented in this encounter [facility] 04-12-2023 Telephone encounter Note If patient calls clinical access, please review and assist patient with scheduling colposcopy. Dr will discuss results in detail at appointment. 15 minutes in office procedure with doctor and 30 minutes in procedure room at [facility]. When appointment is available. Preferably after a cycle. Colposcopy, diagnostic look at the cervix using a type of lighted microscope. A small tissue sample may be taken to determine if there are abnormal cells developing or progressing into the cervical tissue or endocervix. Follow up will depend on colposcopy results. As long as no contraindications, can take tylenol or Ibuprofen with food 2 hours prior. A urine test may be done at this appointment. Thank you [facility] 04-12-2023 Telephone encounter Note ----- Message from Nikki Nance MD sent at 04/12/2023 2:22 PM EST ----- Lgsil positive hr hpv needs colpo [facility] 04-04-2023 History of Presen t illness Narrative Chief Complaint Patient presents with Annual Exam Patient's last menstrual period was 02/26/2023 (exact date). History: Past Medical History: Diagnosis Date control NONE, NSA BMI 45.0-49.9, adult (HCC) Depression Insulin resistance PCOS (polycystic ovarian syndrome) stopped metformin Past Surgical History: Procedure Laterality Date CHOLECYSTECTOMY 03/30/2017 WISDOM TOOTH EXTRACTION Family History Problem Relation Name Age of Onset Breast cancer Paternal Grandmother Great 30 Ovarian cancer Paternal Grandmother Great 70 70-80 Diabetes Maternal Grandmother 50 Social History Tobacco Use Smoking status: Every Day Types: Cigarettes Smokeless tobacco: Never Vaping Use Vaping Use: Never used Substance Use Topics Alcohol use: No Alcohol/week: 0.0 standard drinks of alcohol Drug use: No Allergies: No Known Allergies Medications: Current Outpatient Medications on File Prior to Visit Medication Sig Dispense Refill Magnesium Citrate 100 MG capsule omeprazole (PriLOSEC) [address] capsule Take 40 mg by mouth daily. escitalopram (Lexapro) 10 MG tablet Take 10 mg by mouth daily. lidocaine (Xylocaine) 5 % ointment Apply topically 3 times daily. 30 g 1 No current facility-administered medications on file prior to visit. HPI: Pt has no complaints ROS: Review of Systems Constitutional: Negative for activity change, appetite change, chills, diaphoresis, fatigue, fever and unexpected weight change. HENT: Negative for congestion. Respiratory: Negative for apnea and shortness of breath. Gastrointestinal: Negative for abdominal distention and abdominal pain. Genitourinary: Negative for decreased urine volume, difficulty urinating, dyspareunia, dysuria, frequency, menstrual problem, pelvic pain, urgency, vaginal bleeding, vaginal discharge and vaginal pain. Skin: Negative for color change. Neurological: Negative for weakness, light-headedness and headaches. Psychiatric/Behavioral: The patient is not nervous/anxious. exam: BP (!) 147/88 Pulse 82 Ht 5' 4 (1.626 m) Wt 256 lb (116 kg) LMP 02/26/2023 (Exact Date) BMI 43.94 kg/m Physical Exam Constitutional: General: She is not in acute distress. Appearance: Normal appearance. HENT: Head: Normocephalic and atraumatic. Right Ear: External ear normal. Left Ear: External ear normal. Nose: Nose normal. Eyes: Conjunctiva/sclera: Conjunctivae normal. Pulmonary: Effort: Pulmonary effort is normal. No respiratory distress. Chest: Chest wall: No mass, lacerations, deformity, swelling, tenderness, crepitus or edema. There is no dullness to percussion. Breasts: Right: Normal. No swelling, bleeding, inverted nipple, mass, nipple discharge, skin change or tenderness. Left: Normal. No swelling, bleeding, inverted nipple, mass, nipple discharge, skin change or tenderness. Abdominal: Palpations: Abdomen is soft. Genitourinary: General: Normal vulva. Labia: Right: No rash, tenderness, lesion or injury. Left: No rash, tenderness, lesion or injury. Vagina: Normal. Cervix: Normal. Uterus: Normal. Adnexa: Right adnexa normal and left adnexa normal. Musculoskeletal: General: Normal range of motion. Cervical back: Normal range of motion. Lymphadenopathy: Upper Body: Right upper body: No supraclavicular, axillary or pectoral adenopathy. Left upper body: No supraclavicular, axillary or pectoral adenopathy. Skin: General: Skin is warm and dry. Neurological: General: No focal deficit present. Mental Status: She is alert and oriented to person, place, and time. Mental status is at baseline. Psychiatric: Mood and Affect: Mood normal. Behavior: Behavior normal. Thought Content: Thought content normal. Judgment: Judgment normal. Assessment and Plan: Lori was seen today for annual exam. Diagnoses and all orders for this visit: Encounter for gynecological examination without abnormal finding (Primary) - Pap Smear No follow-ups on file. documented in this encounter [facility] 02-10-2023 Telephone encounter Note Can you please write note [facility] 02-10-2023 Miscellaneous Notes Can you please write note S: Patient spoke with [facility] nurse regarding work excuse for 02/06 and 02/07 B: Patient called and needs work excuse for the appointments she had and upload the excuse into my chart A: Advised patient I would get message to provider R: Sent TE to provider for further assistance documented in this encounter [facility] 02-09-2023 Telephone encounter Note S: Patient spoke with [facility] nurse regarding work excuse for 02/06 and 02/07 B: Patient called and needs work excuse for the appointments she had and upload the excuse into my chart A: Advised patient I would get message to provider R: Sent TE to provider for further assistance [facility] 02-08-2023 History of Presen t illness Narrative A product distribution specialist was offered to be present during her exam. The patient: declined Images from the original note were not included. Chief Complaint Patient presents with Follow-up cultures Patient's last menstrual period was 01/19/2023 (exact date). History: Past Medical History: Diagnosis Date control NONE, NSA BMI 45.0-49.9, adult (HCC) Depression Insulin resistance PCOS (polycystic ovarian syndrome) stopped metformin Past Surgical History: Procedure Laterality Date CHOLECYSTECTOMY 03/30/2017 WISDOM TOOTH EXTRACTION Family History Problem Relation Name Age of Onset Breast cancer Paternal Grandmother Great 30.00 Diabetes Maternal Grandmother 50.00 Ovarian cancer Paternal Grandmother Great 70.00 70-80 Social History Tobacco Use Smoking status: Every Day Types: Cigarettes Smokeless tobacco: Never Vaping Use Vaping Use: Never used Substance Use Topics Alcohol use: No Alcohol/week: 0.0 standard drinks of alcohol Drug use: No Allergies: No Known Allergies Medications: Current Outpatient Medications on File Prior to Visit Medication Sig Dispense Refill escitalopram (Lexapro) 10 MG tablet Take 10 mg by mouth daily. lidocaine (Xylocaine) 5 % ointment Apply topically 3 times daily. 30 g 1 omeprazole (PriLOSEC) [address] capsule Take 40 mg by mouth daily. No current facility-administered medications on file prior to visit. HPI: Pt had a speciemn that could not be run ROS: Review of Systems Genitourinary: Negative for dyspareunia, dysuria, vaginal discharge and vaginal pain. exam: BP 113/75 Pulse 56 Wt 262 lb (119 kg) LMP 01/19/2023 (Exact Date) Physical Exam Genitourinary: Labia: Right: Lesion present. Left: Lesion present. 2 boils Assessment and Plan: Lori was seen today for follow-up. Diagnoses and all orders for this visit: Vaginal discharge (Primary) - Sureswab(R) Advanced Vaginitis Plus, TMA ([facility]) Exposure to STD - Sureswab(R) Advanced Vaginitis Plus, TMA ([facility]) No follow-ups on file. documented in this encounter [facility] 02-06-2023 History of Presen t illness Narrative A product distribution specialist was offered to be present during her exam. The patient: declined Images from the original note were not included. Chief Complaint Patient presents with New Patient Gynecologic Exam Patient said symptoms started on . Patient thinks they may be boils but isn't sure but said the one is close to her urethra and is making it very painful to urinate. Patient's last menstrual period was 01/19/2023 (exact date). History: Past Medical History: Diagnosis Date control NONE, NSA BMI 45.0-49.9, adult (HCC) Depression Insulin resistance PCOS (polycystic ovarian syndrome) stopped metformin Past Surgical History: Procedure Laterality Date CHOLECYSTECTOMY 03/30/2017 WISDOM TOOTH EXTRACTION Family History Problem Relation Name Age of Onset Breast cancer Paternal Grandmother Great 30.00 Diabetes Maternal Grandmother 50.00 Ovarian cancer Paternal Grandmother Great 70.00 70-80 Social History Tobacco Use Smoking status: Every Day Types: Cigarettes Smokeless tobacco: Never Vaping Use Vaping Use: Never used Substance Use Topics Alcohol use: No Alcohol/week: 0.0 standard drinks of alcohol Drug use: No Allergies: No Known Allergies Medications: Current Outpatient Medications on File Prior to Visit Medication Sig Dispense Refill escitalopram (Lexapro) 10 MG tablet Take 10 mg by mouth daily. omeprazole (PriLOSEC) [address] capsule Take 40 mg by mouth daily. No current facility-administered medications on file prior to visit. HPI: Pt states 4 days ago sh ehad two boil typr lesions on her vulva and a very painful lesion by her clitoris Gynecologic Exam The patient's primary symptoms include vaginal discharge. The patient's pertinent negatives include no pelvic pain. Pertinent negatives include no dysuria or urgency. ROS: Review of Systems Genitourinary: Positive for genital sores, vaginal discharge and vaginal pain. Negative for decreased urine volume, difficulty urinating, dyspareunia, dysuria, enuresis, pelvic pain, urgency and vaginal bleeding. exam: BP 126/83 Pulse 75 Wt 260 lb (118 kg) LMP 01/19/2023 (Exact Date) Physical Exam Genitourinary: Labia: Right: Lesion present. Left: Lesion present. 2 boil 1 ulcerated small lesion at top Assessment and Plan: Lori was seen today for new patient and gynecologic exam. Diagnoses and all orders for this visit: Vulvar lesion (Primary) - Herpes Simplex Virus 1,2 by PCR; Future - Herpes Simplex Virus 1,2 by PCR - Herpes Simplex Virus 1,2 by PCR Exposure to STD - Sureswab(R) Advanced Vaginitis Plus, TMA ([facility]) - Hepatitis B surface antigen; Future - Hepatitis C antibody; Future - HIV-1 and HIV-2 Antigen-Antibody Screen; Future - RPR; Future - Herpes Simplex Virus 1,2 by PCR; Future - Hepatitis B surface antigen - Hepatitis C antibody - HIV-1 and HIV-2 Antigen-Antibody Screen - RPR - Herpes Simplex Virus 1,2 by PCR - Herpes Simplex Virus 1,2 by PCR Vaginal discharge - Sureswab(R) Advanced Vaginitis Plus, TMA ([facility]) Other orders - lidocaine (Xylocaine) 5 % ointment; Apply topically 3 times daily. No follow-ups on file. documented in this encounter [facility] 02-06-2023 Miscellaneous Notes Addended by: NIKKI BARBOUR V. on: 02/06/2023 12:53 PM Modules accepted: Orders Addended by: NIKKI BARBOUR V. on: 02/06/2023 02:47 PM Modules accepted: Orders documented in this encounter [facility] 02-06-2023 Note Addended by: NIKKI WHITAKER V. on: 02/06/2023 12:53 PM Modules accepted: Orders [facility] 02-06-2023 Note Addended by: NIKKI WHITAKER V. on: 02/06/2023 02:47 PM Modules accepted: Orders [facility] 02-06-2023 Note Addended by: NIKKI WHITAKER V. on: 02/06/2023 12:53 PM Modules accepted: Orders [facility] 02-06-2023 Note Addended by: NIKKI WHITAKER V. on: 02/06/2023 02:47 PM Modules accepted: Orders [facility] 02-06-2023 Note Addended by: NIKKI WHITAKER V. on: 02/06/2023 12:53 PM Modules accepted: Orders [facility] 02-06-2023 Note Addended by: NIKKI WHITAKER V. on: 02/06/2023 02:47 PM Modules accepted: Orders [facility] 02-06-2023 Telephone encounter Note S: Patient called the clinical access center with complaint of blisters and open sore STD testing painful on skin to urinate B:Symptoms for 4 days A:Open sore near vagina and blisters that are painful. Painful to urinate due to skin irritation. Pt denies fever. Concern for STD R:appt scheduled in office today [facility] 02-06-2023 Miscellaneous Notes S: Patient called the [facility] access center with complaint of blisters and open sore STD testing painful on skin to urinate B:Symptoms for 4 days A:Open sore near vagina and blisters that are painful. Painful to urinate due to skin irritation. Pt denies fever. Concern for STD R:appt scheduled in office today documented in this encounter [facility] 03-16-2021 Note HNO ID: [id number] Author: Carmelita Raymond PA-C Service: ? Author Type: Physician General Accounting Clerk Type: Progress Notes Filed: 03/16/2021 10:48 AM Note Text: This note was created using [employer]. Subjective Lori Luevano is a 30 year old female. Pt c/o cough and URI x 5 days. She now has a plugged left ear and raspy voice. She has tried OTC decongestant and antihistamine and mucus expectorant without relief. No recent sick exposure. She took a COVID test yesterday and she is negative. The history is provided by the patient. Cough This is a new problem. The current episode started more than 2 days ago. The problem occurs constantly. The problem has been gradually worsening. The cough is productive of purulent sputum. There has been no fever. Associated symptoms include ear pain, headaches, rhinorrhea and sore throat. She has tried decongestants for the symptoms. She is not a smoker. Her past medical history is significant for bronchitis. Review of Systems Constitutional: Negative. HENT: Positive for congestion, ear pain, postnasal drip, rhinorrhea, sinus pressure, sore throat and voice change. Eyes: Negative. Respiratory: Positive for cough. Cardiovascular: Negative. Gastrointestinal: Negative. Musculoskeletal: Negative. Neurological: Positive for headaches. Objective BP 135/83 Pulse 80 Temp 36.1 ?C (97 ?F) LMP 01/01/2021 SpO2 100% Physical Exam Vitals and nursing note reviewed. Constitutional: Appearance: Normal appearance. She is well-developed. She is obese. HENT: Head: Normocephalic and atraumatic. Right Ear: Hearing, ear canal and external ear normal. A middle ear effusion is present. Tympanic membrane has decreased mobility. Left Ear: Ear canal and external ear normal. Decreased hearing noted. Tenderness present. A middle ear effusion is present. Tympanic membrane is erythematous and bulging. Tympanic membrane has decreased mobility. Nose: Mucosal edema present. Right Turbinates: Swollen. Left Turbinates: Swollen. Right Sinus: Maxillary sinus tenderness present. Left Sinus: Maxillary sinus tenderness present. Mouth/Throat: Lips: [place]. Mouth: Mucous membranes are moist. Pharynx: Oropharynx is clear. Uvula midline. Cardiovascular: Rate and Rhythm: Normal rate and regular rhythm. Heart sounds: Normal heart sounds, S1 normal and S2 normal. Pulmonary: Effort: Pulmonary effort is normal. Breath sounds: Normal breath sounds and air entry. No decreased breath sounds, wheezing, rhonchi or rales. Lymphadenopathy: Head: Right side of head: Submental and submandibular adenopathy present. Left side of head: Submental and submandibular adenopathy present. Cervical: No cervical adenopathy. Skin: General: Skin is warm and dry. Neurological: General: No focal deficit present. Mental Status: She is alert and oriented to person, place, and time. Psychiatric: Behavior: Behavior is cooperative. Assessment and Plan ASSESSMENT/PLAN: 1. Acute otitis media, left - ICD9: 382.9, ICD10: H66.92 (primary diagnosis) - Will begin treatment with Augmentin 875 mg PO BID for 10 days - The patient should also be given OTC decongestants prn, OTC cough and cold meds as needed, warm salt water gargles, throat lozenges and/or OTC throat spray as needed and nasal saline gtts and suction prn for the first 5-7 days of treatment. - Supportive care with plenty of fluids, rest, and analgesia prn. - Follow up in one week if symptoms persist or worsen. - AMOXICILLIN 875 MG-POTASSIUM CLAVULANATE 125 MG TABLET 2. Cough - ICD9: 786.2, ICD10: R05.9 - Take rx as prescribed - If cough worsens or does not improve, follow up with your PCP - BENZONATATE 100 MG CAPSULE - ALBUTEROL SULFATE HFA 90 MCG/ACTUATION AEROSOL INHALER Carmelita Raymond PA-C [facility] 03-14-2021 Note HNO ID: [id number] Author: Nilay Lopez APRN.KENA Service: ? Author Type: Nurse Practitioner Type: Progress Notes Filed: 03/14/2021 11:16 AM Note Text: This is an [facility] eVisit note for Lori Luevano eVisit/Questionnaire reviewed The chief complaint for the visit - Patient presents with: Sinus Problem Recommendations/Treatment plan - Most consistent with non-COVID viral illness, recommended continued symptomatic treatments. See My Chart Message to patient. Recommendation for follow up - PRN Time spend was 5 minutes. Nilay Lopez APRN.THERMITE WELDER [facility] 03-08-2021 Note HNO ID: [id number] Author: Glory Hair RN Service: ? Author Type: Registered Nurse Type: Progress Notes Filed: 03/08/2021 9:25 AM Note Text: Lori Hinkelpresents today for an injection of Gardasil Last dose given: 01/06/2021 Patient's last menstrual period was 01/01/2021. Gardasil given in left deltoid, patient tolerated well. Lot# [id number] Exp Date 08/2022 First dose of Gardasil given: 01/06/2021 Glory Hair RN [facility] 03-08-2021 Note HNO ID: [id number] Author: Glory Hair RN Service: ? Author Type: Registered Nurse Type: Progress Notes Filed: 03/08/2021 9:25 AM Note Text: [facility] 01-05-2021 Note HNO ID: [id number] Author: Noelle Cano DO Service: ? Author Type: Physician Type: Progress Notes Filed: 01/05/2021 11:37 AM Note Text: Lori is a 30 year old who presents for an annual gynecologic exam with complaints, vaginal discharge and vulvar irritation. She is also concerned that she may have a UTI. She would also like to be tested for STDs. Of note, she has a diagnosis of PCOS. Menses: cycles every 28 days and 1-2 days of flow. Contraception: POPs HPV vaccine: No - interested in starting series Last Pap: abnormal in April per patient, patient to sign records release Last mammogram: never Family history of breast cancer: paternal grandmother - she did not complete genetic testing Sexually active: yes Incontinence: no Pelvic organ prolapse: no OB History T0 L0 SAB0 TAB0 Ectopic0 Multiple0 Live Births0 PAST MEDICAL HISTORY Diagnosis Date - Anxiety - Polycystic ovarian syndrome PAST SURGICAL HISTORY Procedure Laterality Date - COLONOSCOPY 2018 - REMOVAL GALLBLADDER 2016 FAMILY HISTORY Problem Relation Age of Onset - Skin Cancer Maternal Grandmother - Skin Cancer Paternal Grandmother - Breast Cancer Paternal Grandmother - Other Sleep Disorder Paternal great-grandmother not sure if it was cervical or ovarian cancer SOCIAL HISTORY Social History Tobacco Use - Smoking status: Never Smoker - Smokeless tobacco: Never Used Vaping Use - Vaping Use: Never used Substance Use Topics - Alcohol use: Yes - Drug use: Not Currently REVIEW OF SYSTEMS Abdomen: No abdominal pain, nausea, vomiting, diarrhea, or constipation. No bloating, early satiety, indigestion, or increased flatulence. Bladder: No dysuria, gross hematuria, urinary frequency, urinary urgency, or incontinence. Breast: No breast lumps, nipple d/c, overlying skin changes, redness or skin retraction. Allergies and current medication updated:Yes EXAM: BP 122/88 Wt 275 lb (124.7kg) LMP 01/01/2021 GENERAL: pleasant, female in no apparent distress HEENT: Normocephalic, atraumatic, mucus membranes moist and no lesions NECK: Supple, full range of motion, no adenopathy DERMATOLOGY: Normal, without lesions, non-icteric and non-hirsute BREAST: soft, non-tender, symmetric, no dominant mass, normal nipple-areolar complex, no lymphadenopathy and no nipple discharge CHEST: Normal inspiratory effort ABDOMEN: soft, non-tender and no masses PELVIC: external genitalia normal, normal Bartholin's glands, urethra, [place]'s glands, no vulvar lesions, no cervical lesions, good vaginal support, thick white discharge present, normal appearing perineal body and perianal region BIMANUAL: uterus normal size, shape and consistency, no adnexal masses and non-tender RECTOVAGINAL: deferred NEURO: alert and oriented x3,exam grossly non-focal EXTREMITIES: normal ASSESSMENT/PLAN: 1) Health maintenance: Nutrition, exercise and routine health maintenance exams reviewed - referral to endocrine weight/PCOS clinic placed Patient to obtain pap records HPV injections prescribed Genetic counseling ordered secondary to family history 2) Contraceptive Management - Discussed with patient that OCPS are the recommended treatment to protect her body against uterine cancer with PCOS. R/b/a of each discussed, including risks of clots with estrogen-containing modalities - Pt denies any history of VTE, family history of a coagulation disorder. She does not smoke, and has no history of cancer. She denies a history of migraines with aura - Pt expresses desire to proceed with OCP - leesa escribed. Information given regarding OCPs 3) STD screening: Accepts full STD screeening including HIV, Syphilis and Hepatitis. 4) Vaginal discharge: affirm sent, diflucan escribed 5) Dysuria: urine dip likely contaminated, urine culture ordered 6) Follow up one year or sooner as needed Noelle Cano DO [facility] 11-17-2020 Note HNO ID: [id number] Author: Sunitha Lemus, DO Service: ? Author Type: Physician Type: Progress Notes Filed: 12/20/2020 11:32 AM Note Text: Subjective HPI Here as new patient. Having yeast infection and UTI. Has seen supervisor in charge at the beginning of this year - okay. Told HPV slightly elevated (?) Told pap normal. Started Monday Sexually active with one male partner without symptoms. Last UTI/yeast infection about a year ago - treated with diflucan, antibiotic for 7 days and better. This was the only infection. Was on metformin at age 16 - didn't tolerate - diarrhea, glucose was dropping to 40's. Weight stable for years. Last ate 3 hours ago - glucose now 114 MEDS: norethindrone PMH: Polycystic ovarian syndrome diagnosed at age 16 years (seeing [facility] physician then)_ . Periods not regular. LMP 06/14/2020. Has been on BCP's on the past; Stopped in April 2020. Not trying to get . Wants BCP's until sees gyne. One gave her bad migraines Anxiety - doing okay now; Not on medications at present time. Was on lexapro in the past which helped. PSH: Cholecystectomy 2016 without complications [place] teeth removed. Colonoscopy, EGD 2018 - good; Had had right mid-abdominal pain. No pain now. Now may have such pain once a month, pinching, burning pain that lasts a day or so; Not related to diet or period. CT scan done then. MEDS: Omeprazole 20 mg. Daily for reflux MVI daily Probiotic ALLERGIES: None known. SH: Never smoked. EtOH - once/week No drug use or HIV risks. FH: Mother living, 51 years old, well, hypertension. Father 57 years old, living/well. 3 younger sisters, living/well. Maternal grandmother with diabetes, ?uterine/ovarian cancer. No FH early CAD. Paternal grandmother with breast cancer. Paternal great-grandmother with ovarian cancer. Review of Systems Constitutional: Negative for chills and fever. Eyes: Negative for blurred vision. Respiratory: Negative for shortness of breath. Cardiovascular: Negative for chest pain and leg swelling. Gastrointestinal: Negative for abdominal pain. Genitourinary: Positive for dysuria. See HPI. Musculoskeletal: Negative for falls. Neurological: Negative for dizziness, focal weakness and headaches. Psychiatric/Behavioral: The patient is nervous/anxious. See HPI. Objective Physical Exam Constitutional: Comments: No distress. Eyes: Conjunctiva/sclera: Conjunctivae normal. Cardiovascular: Rate and Rhythm: Normal rate and regular rhythm. Heart sounds: Normal heart sounds. Pulmonary: Breath sounds: Normal breath sounds. Abdominal: Palpations: Abdomen is soft. Tenderness: There is no abdominal tenderness. Musculoskeletal: General: No tenderness. Skin: General: Skin is warm and dry. Neurological: Mental Status: She is alert and oriented to person, place, and time. LABS: Reviewed. Glucose 114. Urine dip with small leukocytes. ASSESSMENT/PLAN: 1. Polycystic ovarian syndrome - ICD9: 256.4, ICD10: E28.2 (primary diagnosis) To do labs; To see supervisor in charge - CBC + DIFF - COMP METABOLIC PANEL - HGB A1C - TSH BLD - GLUCOSE, BLOOD (POC) - CONSULT TO LOG MARKER - NORETHINDRONE (CONTRACEPTIVE) 0.35 MG TABLET 2. Encounter for hepatitis C screening test for low risk patient - ICD9: V73.89, ICD10: Z11.59 - HEP C AB IA W/CONF SCRN 3. Screening for HIV without presence of risk factors - ICD9: V73.89, ICD10: Z11.4 - HIV 1 2 COMBO(AG/AB),WITH REFLEX TO DIFFERENTIATION 4. BMI 45.0-49.9, adult (HCC) - ICD9: V85.42, ICD10: Z68.42 Encourage diet/exercise/weight loss - GLUCOSE, BLOOD (POC) 5. Monilia infection - ICD9: 112.9, ICD10: B37.9 To see supervisor in charge - GLUCOSE, BLOOD (POC) - FLUCONAZOLE 150 MG TABLET 6. Lipid screening - ICD9: V77.91, ICD10: Z13.220 - LIPID PANEL BASIC 7. Urinary tract infection without hematuria, site unspecified - ICD9: 599.0, ICD10: N39.0 - UA DIP B/O - GLUCOSE, BLOOD (POC) - URINE CULTURE - SULFAMETHOXAZOLE 800 MG-TRIMETHOPRIM 160 MG TABLET Sunitha Lemus, [facility] 06-01-2020 Note Patient Outreach ([place] OCC3) LORI LUEVANO ([id number]) 1990 F [facility]* Date Time Provider Department 06/01/20 [facility] During your visit today, we recorded the following information about you: Allergies As of Date: 06/01/2020 (No Known Allergies) Date Reviewed: 02/05/2015 Reviewed by: Angel Barrett THERMITE WELDER - Fully Assessed Order(s):SARS-COVID VACCINE 1ST DOSE APPT [[id number]] Order #: [id number] FUTURE Prescriptions as of 06/01/2020 Sig: METHYLPREDNISOLONE 4 MG TABLE* Take as directed on package GUAIFENESIN ER 600 MG TABLET,* Take 2 tablets by mouth twice* FLUTICASONE PROPIONATE 50 MCG* Use 1 [place] in each nostril o* Problem List As Of Date: 06/01/2020 (None) Encounter Status:Closed by [employer] on 06/04/20 [facility] Evaluation note Diagnosis Onset Date Preventative health care acu te Anxiety chronic Hypertension [facility] Work Phone: Evaluation note* Diagnosis Vulvar lesion- Primary Other specified noninflammatory disorder of vulva and perineum Exposure to STD Vaginal discharge Leukorrhea, not specified as infective [facility] Vaginal discharge- Primary Leukorrhea, not specified as infective Exposure to STD [facility] Diagnosis Encounter for gynecological examination without abnormal finding- Primary documented in this encounter [facility]* Diagnosis LGSIL on Pap smear of cervix- Primary HPV (human papilloma virus) anogenital infection Human papillomavirus in conditions classified elsewhere and of unspecified site documented in this encounter [facility]* Diagnosis HPV (human papilloma virus) anogenital infection- Primary Human papillomavirus in conditions classified elsewhere and of unspecified site LGSIL on Pap smear of cervix documented in this encounter [facility]* Diagnosis Onset Date Resolution Status Genital herpes acute UTI (urinary tract infection) acute Anxiety chronic GERD (gastroesophageal reflux disease) chronic Hypertension chronic [facility] Work Phone: Evaluation note* Diagnosis Vaginal discharge- Primary Leukorrhea, not specified as infective UTI symptoms Screen for STD (sexually transmitted disease) Screening examination for venereal disease documented in this encounter [facility]No assessment information [facility] Work Phone: Hospital Discharge instructionsAmbulatory Orders* LOG MARKER Location: None Selected [facility] Work Phone: Summary Purpose Family History No Family History Records Found Relationship Condition Age at Onset Recorded Date/T lobo grandmother Arthritis Unknown Malignant neoplasm of breast Unknown Malignant neoplasm of skin Unknown Diabetes mellitus Unknown Disorder of thyroid Unknown High blood cholesterol Unknown Hypertension Unknown grandfather Malignant neoplasm of skin Unknown mother Depression Unknown father High blood cholesterol Unknown Severe allergy Unknown Advance Directives No Advanced Directives Records Found Advance Directive Response Recorded Date/ Time Living Will No June 28, 2019 9:42am Power of Hospital Ward Clerk No June 27 0 9:42am Chief Complaint and Reason for Visit Chief Complaint YEARLY Reason for Visit Preventative health care Anxiety Hypertension Chief Complaint fu Reason for Visit Genital herpes UTI (urinary tract infection) Anxiety GERD (gastroesophageal reflux disease) Hypertension Chief Complaint Admit Date FOLLOW UP October 10, 2024 4:47 pm Additional Source Comments INFORMATION SOURCE (unrecogn ized section and content) DATE CREATED AUTHOR 10/17/2017 [facility] [employer] DATE CREATED AUTHOR AUTHOR'S ORGANIZ ATION 05/09/2021 [facility] DATE CREATED AUTHOR AUTHOR'S ORGANIZ ATION 05/19/2021 [facility] DATE CREATED AUTHOR AUTHOR'S ORGANIZ ATION 09/01/2024 [facility] DATE CREATED AUTHOR AUTHOR'S ORGANIZ ATION 10/13/[address] [facility] Care Teams (unrecognized sec tion and content) Team Status: Active Member Role Status Dates Dr. Kenneth Escalona MD Family Provider Active Dr. Ivania Gray MD Primary Care Provider Active Team Status: Inactive Member Role Status Dates Dr. Ivania Gray MD Primary Care P sid, Attending Provider, Referring Provider Active Instrument/Control Technician Relationship Specialty Start Date End Date Ivania Gray [address] [place] [address] PCP - General Internal Medicine 02/06/23 Instrument/Control Technician Relationship Specialty Start Date End Date Ivania Gray [address] [place] [address] PCP - General Internal Medicine 02/06/23 Instrument/Control Technician Relationship Specialty Start Date End Date Ivania Gray [address] [place] [address] PCP - General Internal Medicine 02/06/23 Instrument/Control Technician Relationship Specialty Start Date End Date Ivania Gray [address] [place] [address] PCP - General Internal Medicine 02/06/23 Instrument/Control Technician Relationship Specialty Start Date End Date Ivania Gray [address] [place] [address] PCP - General Internal Medicine 02/06/23 Instrument/Control Technician Relationship Specialty Start Date End Date Ivania Gray [address] [place] [address] PCP - General Internal Medicine 02/06/23 Instrument/Control Technician Relationship Specialty Start Date End Date Ivania Gray [address] [place] [address] PCP - General Internal Medicine 02/06/23 Instrument/Control Technician Relationship Specialty Start Date End Date Oleghe, Efefrenamanda Juarez [address] [facility] [address] [place] [phone] PCP - General Internal Medicine 02/06/23 Team Status: Inactive Member Role Status Dates Dr. Ivania Gray MD Primary Care Provider, Atten ding Provider Active Instrument/Control Technician Relationship Specialty Start Date End Date Ivania Gray [address] [facility] [address] [place] [phone] PCP - General Internal Medicine 02/06/23 Instrument/Control Technician Relationship Specialty Start Date End Date Ivania Gray [address] [facility] [address] [place] [phone] PCP - General Internal Medicine 02/06/23 Team Status: Inactive Member Role Status Dates Dr. Ivania Gray MD Primary Care Provider Active Start: October 10, 2024 End: October 10, 2024 Dr. Ivania Gray MD Attending Provider Active Start: October 10, 2024 End: October 10, 2024 Dr. Ivania Gray MD Referring Provider Active Start: October 10, 2024 End: October 10, 2024 Goals (unrecognized section and content) Goals may be documented in a n alternate sectionGoals may be documented in an alternate sectionGoals may be documented in an alternate section Reason for Visit (unrecogniz ed section and content) Reason Comments New Patient Gynecologic Exam Patient said symptom s started on . Patient thinks they may be boils but isn't sure but said the one is close to her urethra and is making it very painful to urinate. Reason Comments Follow-up cultures Reason Comments Annual Exam Reason Onset Date Comments Abnormal Pap Smear 04/12/2023 Colposcopy re commended Reason Comments Procedure colpo Reason Comments Vaginal Discharge Reason Onset Date Comments Appointment Request 07/19/2024 Due for robson al exam FOR RECORDS PERTAINING TO PATIENTS WHO ARE OR HAVE BEEN ENROLLED IN A CHEMICAL DEPENDENCY/SUBSTANCEABUSE PROGRAM, SOME INFORMATION MAY BE OMITTED. This clinical summary was aggregated from multiple sources. Caution should be exercised in using it in the provision of clinical care. This summary normalizes information from multiple sources, and as a consequence, information in this document may materially change the coding, format and clinical context of patient data. In addition, data may be omitted in some cases. CLINICAL DECISIONS SHOULD BE BASED ON THE PRIMARY CLINICAL RECORDS. [facility] [employer] [facility]. provides no warranty or guarantee of the accuracy or completeness of information in this document.
[2024-10-15 12:27] LABS: Absolute Lymphocyte Count 2.82 X10^3/uL (0.83-4.51); Basophil# 0.07 X10^3/uL; Basophil% 0.7 % (0-1); Eosinophil# 0.43 X10^3/uL; Eosinophils% 4.2 % (0-5); Hematocrit 41.7 % (37-47); Hemoglobin 13.9 g/dL (12.0-15.0); Lymphocyte # 2.82 X10^3/ul (0.83-4.51); Lymphocyte % 27.8 % (19-41); Mean Corp Hgb Conc 33.3 g/dL (32-36); Mean Corpuscular Hgb 27.7 pg (27.0-32.0); Mean Corpuscular Volume 83.1 fL (81-99); Monocyte# 0.81 X10^3/uL; NRBC Flagged by Analyzer 0 % (0-5); Neutrophil # 5.98 X10^3/uL (2.7-7.7); Neutrophil % 58.8 % (47-70); Platelet Count 365 K/mm3 (150-450); RBC Distribution Width CV 12.8 % (11.6-14.6); RBC Distribution Width SD 38.5 fl (35.1-43.9); Red Blood Count 5.02 M/mm3 (4.2-5.4); White Blood Count 10.2 K/mm3 (4.4-11.0)
[2024-10-15 12:55] LABS: Hemoglobin A1c 5.7 % (<=5.6)
[2024-10-15 13:20] LABS: ALB/GLOB Ratio 1.5 RATIO (0.9-2.4); AST(SGOT) 17 U/L (<=31); Alanine Aminotransfer ALT/SGPT 22 U/L (<=34); Albumin, Serum 4.2 g/dL (3.5-5.0); Alkaline Phosphatase 52 U/L (35-104); Anion Gap 12 (5-15); BUN 11 mg/dL (4-19); BUN/Creat Ratio 16.6 RATIO (10-20); Calcium,Total 9.5 mg/dL (7.6-11.0); Carbon Dioxide 23.6 mmol/L (21.0-32.0); Chloride 105 mmol/L (98-108); Cholesterol 183 mg/dL (<=200); Creatinine, Serum 0.69 mg/dL (0.70-1.20); EST Glomerular Filtration Rate 117 (>60); Globulin 2.8 g/dL (2.2-4.2); Glucose 92 mg/dL (70-99); High Density Lipoprotein 41 mg/dL; Low Density Lipoprotein Calc. 96 mg/dL; Potassium 4.1 mmol/L (3.3-5.1); Sodium Level 141 mmol/L (133-145); Total Bilirubin 0.48 mg/dL (0.00-1.30); Triglycerides 228 mg/dL; Very Low Density Lipoprotein 46 mg/dL (5-40); cholesterol:hdl ratio screen 4.45
== END | disposition home or self-care (01) ==
LOC: BIMLAB 08:07
PROVIDERS: PCP Internal Medicine; Referring Provider Internal Medicine; Visit Provider Internal Medicine
DX: Z00.00 Encounter for general adult medical examination without abnormal findings (principal); E66.01 Morbid (severe) obesity due to excess calories; E28.2 Polycystic ovarian syndrome; Z13.29 Encounter for screening for other suspected endocrine disorder; I10 Essential (primary) hypertension
CPT/HCPCS: 36415; 80053; 80061; 83036; 84439; 84443; 85025

== ENCOUNTER → 2024-10-22 | Outpatient (CLI) | payer OTHER, SELFPAY ==
--- NOTE | 2024-10-22 16:40 | US_ITS ---
PROCEDURE: THYROID, 10/22/2024 REASON FOR EXAM: FU THYROID NODULES TECHNIQUE: Grayscale and color Doppler imaging of the thyroid was performed. COMPARISON: 02/02/2018 ; note that images only are available for review, the report is not available at the time of the dictation. FINDINGS: Right lobe measures 5.0 x 1.1 x 1.4cm. Heterogeneous echotexture background echotexture. No abnormal vascularity. Nodules as below: *Lower pole, 0.8 x 0.7 x 0.3 cm, solid, hypoechoic, TI-RADS 4, no follow-up. *Additional smaller nodules. Left lobe measures 5.1 x 2.5 x 1.8 cm. Heterogeneous echotexture background echotexture. No abnormal vascularity. Nodules as below: *Midgland, 3.9 x 1.9 x 1.4 cm, mostly solid, mostly isoechoic, lobulated margin, TI-RADS 4. Previously 2.6 x 0.9 x 1.6 cm. Isthmus measures 2 mm in thickness. US/Thyroid IMPRESSION: 1. Assessment is TI-RADS 4. Dominant and enlarging 3.9 cm nodule on the LEFT m eets criteria for FNA which is recommended as per the below. 2. Heterogeneous mildly enlarged gland noting relative enlargement of the LEFT lobe by the dominant nodule. Correlate for thyroiditis. Management recommendations for TI-RADS 4 findings: FNA if = 1.5 cm; Follow if = 1 cm at 1, 2, 3, and 5 years. Enlargment is defined as ?20% increase in at least two nodule dimensions, with a minimal increase of 2 mm or ?50% or greater increase in volume. Recommendations per ACR Thyroid Imaging, Reporting and Data System (TI-RADS): Susie hodges Paper of the ACR TI-RADS Committee, 2017 ([email or web address]/[email or web address]) Reading Location: [id number]
== END | disposition home or self-care (01) ==
LOC: US 16:39
PROVIDERS: PCP Internal Medicine; Referring Provider Internal Medicine; Visit Provider Internal Medicine
DX: E04.2 Nontoxic multinodular goiter (principal)
CPT/HCPCS: 76536

== ENCOUNTER → 2024-11-05 | Outpatient (CLI) | payer OTHER, SELFPAY ==
--- NOTE | 2024-11-05 13:00 | FLU_PTH ---
PATIENT: BINTA MCCRARY LOC: [facility] U#:[id number] AGE/SX: 34/F ROOM: RE11/05/[address]: Dr. Juan Holloway MD : 1990 BED: DIS: 11/05/2024 SPEC #: [id number] RECD: 11/05/24 13:30 STATUS: VIKKI CAROL #: [id number] NELLA: 11/05/24 13:[address]: Juan Holloway DEPT: CYTOLOGY RECD BY: Guillaume Schofield ENTERED: 11/05/24 14:12 SP TYPE: Fluid OTHR DR: Dr. Ivania Gray MD Tissues: A - Thyroid gland, NOS Procedures: Special Stain Group II Surgery Specimen Level IV Cytospin Fluid HEADER OPERATION: Fine needle aspiration of left thyroid nodule PRE-OP DIAGNOSIS: Left thyroid nodule TISSUE SUBMITTED: A- Left thyroid nodule for cytology DIAGNOSIS CYTOLOGY A. Left thyroid nodule, FNA: * Non-diagnostic due to insufficient cellular material CYTOLOGY STUDY Slides are reviewed. CYTOLOGY GROSS A. Received is 2 DQ, 2 PAP labeled with the patient's name and and designated per the requisition as Left mid thyroid nodule. Submitted for cytology and cytospin. Mr 11/05/2024 CPT: 67505,[id number]
--- NOTE | 2024-11-05 13:00 | FLU_PTH ---
PATIENT: BINTA MCCRARY LOC: [facility] U#:[id number] AGE/SX: 34/F ROOM: RE11/05/[address]: Dr. Juan Holloway MD : 1990 BED: DIS: 11/05/2024 SPEC #: [id number] RECD: 11/05/24 13:30 STATUS: VIKKI CAROL #: [id number] NELLA: 11/05/24 13:[address]: Juan Holloway DEPT: CYTOLOGY RECD BY: Guillaume Schofield ENTERED: 11/05/24 14:12 SP TYPE: Fluid OTHR DR: Dr. Ivania Gray MD Tissues: A - Thyroid gland, NOS Procedures: Special Stain Group II Surgery Specimen Level IV Cytospin Fluid HEADER OPERATION: Fine needle aspiration of left thyroid nodule PRE-OP DIAGNOSIS: Left thyroid nodule TISSUE SUBMITTED: A- Left thyroid nodule for cytology DIAGNOSIS CYTOLOGY A. Left thyroid nodule, FNA: * Non-diagnostic due to insufficient cellular material CYTOLOGY STUDY Slides are reviewed. CYTOLOGY GROSS A. Received is 2 DQ, 2 PAP labeled with the patient's name and and designated per the requisition as Left mid thyroid nodule. Submitted for cytology and cytospin. Mr 11/05/2024 CPT: [id number]
== END | disposition home or self-care (01) ==
PROVIDERS: PCP Internal Medicine; Referring Provider Surgery; Visit Provider Surgery
DX: E04.1 Nontoxic single thyroid nodule (principal)
CPT/HCPCS: 88108; 88305; 88313

== ENCOUNTER → 2025-02-17 | Outpatient (CLI) | payer OTHER, SELFPAY ==
[2025-02-21 13:08] LABS: HPV APTIMA, High Risk Negative (Negative)
== END | disposition home or self-care (01) ==
LOC: LABSPEC 16:22
PROVIDERS: PCP Internal Medicine; Visit Provider Obstetrics & Gynecology
DX: Z12.4 Encounter for screening for malignant neoplasm of cervix (principal)
CPT/HCPCS: 87624; 88175; G0145